=== PATIENT | female | born 1970 | race Caucasian/White ===

== ENCOUNTER 2021-09-04 17:20 | Emergency (ER) | payer OTHER, SELFPAY ==
[2021-09-04 17:35] VITALS: BP 181/108; PULSE 108; RESP 20; TEMP 37.2; O2SAT 99; BMI 45.5
--- NOTE | 2021-09-04 18:28 | ED.ANIMALBIT ---
HPI - Animal Bite General Time Seen by Provider: 17:20 Date Seen: 09/04/21 Chief Complaint: Animal Bite Stated Complaint: Bit by cat on both legs Time Seen by Provider: 09/04/21 17:25 Source: patient Mode of arrival: ambulatory Limitations: no limitations History of Present Illness HPI narrative: 51-year-old female who comes in today with multiple scratches abrasions of the legs bilaterally after main bed by CT. 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 complaint: animal bite Animal: cat Description of animal: unknown animal Mechanism: bite and scratch Location - Extremities: Bilateral: lower leg Context: unprovoked Related Data Home Medications Medication Instructions Recorded Confirmed furosemide 20 mg tablet mg 09/04/21 glimepiride 2 mg tablet mg 09/04/21 glimepiride 4 mg tablet mg 09/04/21 insulin glargine-yfgn 100 unit/mL unit SUBCUT 09/04/21 (3 mL) subcutaneous pen (Semglee (insulin glargine-yfgn) Pen) omeprazole 20 mg capsule,delayed mg 09/04/21 release semaglutide 0.25 mg or 0.5 mg (2 mg SUBCUT 09/04/21 mg/1.5 mL) subcutaneous pen injector (Ozempic) triamterene 37.5 tab 09/04/21 mg-hydrochlorothiazide 25 mg tablet Allergies Allergy/AdvReac Type Severity Reaction Status Date / Time clavulanic acid Allergy Verified 09/04/21 17:33 Review of Systems Status of ROS: Reports: 10 or more systems reviewed and unremarkable except as noted in History and below Exam Const: Vital Signs, click to edit/add: Vital Signs - 24 hr 09/04/21 17:35 Temperature 98.9 F Pulse Rate [Right Apical] 108 H Respiratory Rate 20 Blood Pressure [Ri ght Upper Arm] 181/108 H Pulse Oximetry 99 Course Reevaluation(s) Reevaluation #1: 6 mL of rabies immune globulin infiltrated around bites on the bilateral lower extremities. Remaining was injected IM by nursing. Last tetanus was in 2006. Time: 18:31 Vital Signs Vital signs: Initial Vital Signs Temperature 98.9 F 09/04/21 17:35 Temperature Source Temporal Artery Scan 09/04/21 17:35 Pulse Rate 108 H 09/04/21 17:35 Pulse Strength 2+ Slightly Diminished 09/04/21 17:35 Respiratory Rate 20 09/04/21 17:35 Blood Pressure 181/108 H 09/04/21 17:35 Blood Pressure Mean 132 09/04/21 17:35 Blood Pressure Position Standing 09/04/21 17:35 Pulse Oximetry 99 09/04/21 17:35 Oxygen Delivery Method 09/04/21 17:35 Vital Signs Temperature 98.9 F 09/04/21 17:35 Pulse Rate 108 H 09/04/21 17:35 Respiratory Rate 20 09/04/21 17:35 Blood Pressure 181/108 H 09/04/21 17:35 Pulse Oximetry 99 09/04/21 17:35 Temperature 98.9 F 09/04/21 17:35 Pulse Rate 108 H 09/04/21 17:35 Respiratory Rate 20 09/04/21 17:35 Blood Pressure 181/108 H 09/04/21 17:35 Pulse Oximetry 99 09/04/21 17:35 MDM - Animal Bite MDM Narrative Medical decision making narrative: Patient seen and examined, prior records reviewed. Multiple bites and scratches of the lower legs by CT with unknown vaccination status. Patient will be given rabies immune globulin and 1st dose of rabies vaccine series. She will need to follow up in the emergency department or the clinic for repeat doses. Patient is allergic to Augmentin, will be started on doxycycline for prophylaxis. Differential Diagnosis Differential diagnosis: Likely bite by animal, cat bite and rabies contact Discharge Plan Discharge Clinical Impression: Cat bite Patient Disposition: Home, Self-Care Condition: Stable Instructions: Animal Bite (ED), Rabies (ED) Additional Instructions: Wash daily with soap and water. Dressing as desired. Take antibiotics as prescribed. Return to emergency department for rabies vaccinations as scheduled below: Day 0 - September 04 Day 3 - September 07 Day - September 11 Day - September 18 Activity Level: No Restrictions Discharge Diet: Regular Prescriptions: No Action glimepiride 2 mg tablet 0RF Label Comments: TAKE TWO TABLETS BY MOUTH DAILY glimepiride 4 mg tablet 0RF Label Comments: TAKE ONE TABLET BY MOUTH DAILY triamterene-hydrochlorothiazid 37.5-25 mg tablet 0RF Label Comments: TAKE 1 TABLET BY MOUTH ONCE DAILY. omeprazole 20 mg capsule,delayed release(DR/EC) 0RF Label Comments: TAKE 1 CAPSULE BY MOUTH TWICE DAILY furosemide 20 mg tablet 0RF Label Comments: TAKE 2 TABLETS BY MOUTH DAILY Ozempic 0.25 mg or 0.5 mg(2 mg/1.5 mL) pen injector SUBCUT 0RF insulin glargine-yfgn [Semglee(insulin glarg-yfgn)Pen] 100 unit/mL (3 mL) insulin pen SUBCUT 0RF Label Comments: 15 UNITS SUBQ AT BEDTIME Follow Up/Referrals: Alen Snider MD [Primary Care Provider] - Stand [facility]one [facility] Inst[facility]
--- NOTE | 2021-09-04 18:42 | ED.NURSE ---
Last tetanus in 2006. Dr Tate notified. Will order TDAP vaccine.
[2021-09-04] MEDS: IBUPROFEN 400 MG TABLET 600 MG PO (18:55)
[2021-09-04] MEDS: RABIES IMMUNE GLOBULIN 150 UNIT/ML INJ 2400 UNIT INFILTRATI (18:57)
[2021-09-04] MEDS: TETANUS/DIPHTH/PERTUSSIS 0.5 ML SYRINGE IM (18:59)
--- NOTE | 2021-09-04 19:51 | ED.NURSE ---
pt instructed to Return to emergency department for remainder of vaccines on: Day 3 - September 3rd Day 7 - September 11 Day 14 - September 18
== END 2021-09-04 19:30 | disposition home or self-care (01) ==
PROVIDERS: Emergency Provider Family Medicine; PCP Family Medicine
DX: S81.852A Open bite, left lower leg, initial encounter (principal); S81.851A Open bite, right lower leg, initial encounter; W55.01XA Bitten by cat, initial encounter
CPT/HCPCS: 90377; 90471; 90675; 90715; 99282; 99283; 99284; A9270

== ENCOUNTER 2021-09-07 16:49 | Emergency (ER) | payer OTHER, SELFPAY ==
[2021-09-07 16:57] VITALS: BP 119/75; PULSE 97; RESP 20; TEMP 36.9; O2SAT 96; BMI 45.5
--- NOTE | 2021-09-07 17:28 | ED_ITS ---
HPI - Skin/Abscess/Foreign Bdy General Chief complaint: Skin/Abscess/Foreign Body Stated complaint: Rash on legs Time Seen by Provider: 09/07/21 16:57 History of Present Illness HPI narrative: This 51-year-old female comes in for re-evaluation from a cat bite and scratches that occurred 4 days ago. She was seen the next day and started on rabies prophylaxis. Also was prescribed doxycycline to treat the likelihood of infection. She has an allergy to clavalonic acid. She has been taking doxycycline but continues to have erythema, warmth, and pain in both lower extremities. She has not had any fevers. Related Data Home Medications Medication Instructions Recorded Confirmed furosemide 20 mg tablet mg 09/04/21 glimepiride 2 mg tablet mg 09/04/21 glimepiride 4 mg tablet mg 09/04/21 insulin glargine-yfgn 100 unit/mL unit subcut 09/04/21 (3 mL) subcutaneous pen (Semglee (insulin glargine-yfgn) Pen) omeprazole 20 mg capsule,delayed mg 09/04/21 release semaglutide 0.25 mg or 0.5 mg (2 mg subcut 09/04/21 mg/1.5 mL) subcutaneous pen injector (Ozempic) triamterene 37.5 tab 09/04/21 mg-hydrochlorothiazide 25 mg tablet Previous Rx's Medication Instructions Recorded azithromycin 250 mg tablet See Taper PO DAILY 6 days #6 tabs 09/07/21 (Zithromax Z-Jamil) cefuroxime axetil 500 mg tablet 500 mg PO BID 10 days #20 tabs 09/07/21 hydrocodone 5 mg-acetaminophen 325 1 tab PO Q4-6H PRN pain #7 tabs 09/07/21 mg tablet Allergies Allergy/AdvReac Type Severity Reaction Status Date / Time clavulanic acid Allergy Verified 09/07/21 16:57 Review of Systems Status of ROS: Reports: 10 or more systems reviewed and unremarkable except as noted in History and below Narrative: Constitutional: No fevers, no weight gain or loss. Eyes: No discharge. No vision changes. HENT: No congestion, no sore throat, no ear pain. Cardiovascular: No chest pain, no palpitations. Respiratory: No shortness of breath, no wheezes, no cough. Gastrointestinal: No abdominal pain, no vomiting, no diarrhea. Genitourinary: No dysuria, no hematuria. Musculoskeletal: Normal range of motion. Skin: Erythema surrounding bite and scratch wounds in both lower extremities. Neurological: No dizziness, weakness, sensory change, speech change. Endo/Heme/Allergies: No bruising or bleeding. No polydipsia. Pysch: no suicidality, no anxiety, no insomnia. All other systems reviewed and are negative. PFSH PFS Social History Smoking Status: Never smoker Do you use any of these nicotine containing products: None How often do you have a drink containing alcohol: never How often do you have six or more drinks on one occasion: Never AUDIT-C Alcohol total score: 0 Non-prescribed substance use: denies use service: No Exam Narrative: Exam Narrative: Constitutional: Well-developed, well-nourished, no acute distress. HEENT: Normocephalic, atraumatic. Neck: Normal range of motion. Nontender. Supple. Heart: Regular. No murmurs. Normal rate. Intact distal pulses. Lungs: Clear to auscultation. No chest discomfort. No wheezes, rhonchi, or rales. Abdomen: Normal bowel sounds. Nontender. No rebound tenderness. Genitalia: Deferred. Back: No midline tenderness. Normal range of motion. Extremities: Normal range of motion. No injury. Skin: Cat bite wounds on the medial aspect of the left lower extremity above the ankle with surrounding erythema. There is no palpable abscess or sign of drainage. In the right lower is also erythema with numerous scratches. Neurologic: No altered sensation. No weakness. Alert and oriented. Psychiatric: No suicidality. No anxiety or depression. No insomnia. Nursing notes and vitals signs are reviewed. Const: Vital Signs, click to edit/add: Vital Signs - 24 hr 09/07/21 16:57 Temperature 98.4 F Pulse Rate [Pulse Oximeter] 97 Respiratory Rate 20 Blood Pressure [Ri ght Forearm] 119/75 Pulse Oximetry 96 Oxygen Delivery Me thod Room Air Course Vital Signs Vital signs: Initial Vital Signs Temperature 98.4 F 09/07/21 16:57 Temperature Source Temporal Artery Scan 09/07/21 16:57 Pulse Rate 97 09/07/21 16:57 Pulse Rhythm 09/07/21 16:57 Respiratory Rate 20 09/07/21 16:57 Blood Pressure 119/75 09/07/21 16:57 Blood Pressure Mean 89 09/07/21 16:57 Pulse Oximetry 96 09/07/21 16:57 Oxygen Delivery Method 09/07/21 16:57 Vital Signs Temperature 98.4 F 09/07/21 16:57 Pulse Rate 97 09/07/21 16:57 Respiratory Rate 20 09/07/21 16:57 Blood Pressure 119/75 09/07/21 16:57 Pulse Oximetry 96 09/07/21 16:57 Oxygen Delivery Method 09/07/21 16:57 Temperature 98.4 F 09/07/21 16:57 Pulse Rate 97 09/07/21 16:57 Respiratory Rate 20 09/07/21 16:57 Blood Pressure 119/75 09/07/21 16:57 Pulse Oximetry 96 09/07/21 16:57 Oxygen Delivery Method 09/07/21 16:57 MDM - Skin/Abscess/Foreign Bdy MDM Narrative Medical decision making narrative: This 51-year-old female comes in for recheck of infection related to a cat bite and scratches that occurred 4 days ago. She does not have any red streaks going up either leg and does not have a fever. However despite taking doxycycline her symptoms have not improved much. The doxycycline was prescribed likelihood of a pastorella infection. This was a second-line treatment because of an allergy to clavalonic acid. She may have an additional infection related I did discuss lab and imaging options with the patient which were declined in a process of shared decision making at this time. It does seem reasonable to change her treatment plan. I consulted [facility] for treating these infections so she received or Ceftin and Zithromax. She also received a few tablets of [place] for pain relief. I describe signs and symptoms that would indicate a need for return and re-evaluation. She is returning in 3 days for another dose of her rabies regimen. Discharge Plan Discharge Clinical Impression: Cellulitis Patient Disposition: Home, Self-Care Condition: Stable Instructions: Cellulitis (ED) Additional Instructions: Hold doxycycline. Prescriptions as prescribed follow up with MD or return if worsening. Prescriptions: New cefuroxime axetil 500 mg tablet 500 mg PO BID 10 Days Qty: 20 0RF azithromycin [Zithromax Z-Jamil] 250 mg tablet See Taper PO DAILY 6 Days Qty: 6 0RF Taper: Z-JAMIL 500 mg Q24H for 1 Day and 0 Hour 250 mg Q24H for 4 Days and 0 Hour Rx Instructions: start on day 2 of therapy hydrocodone-acetaminophen 5-325 mg tablet 1 tab PO Q4-6H PRN (Reason: pain) Qty: 7 0RF No Action glimepiride 2 mg tablet Label Comments: TAKE TWO TABLETS BY MOUTH DAILY glimepiride 4 mg tablet Label Comments: TAKE ONE TABLET BY MOUTH DAILY triamterene-hydrochlorothiazid 37.5-25 mg tablet Label Comments: TAKE 1 TABLET BY MOUTH ONCE DAILY. omeprazole 20 mg capsule,delayed release(DR/EC) Label Comments: TAKE 1 CAPSULE BY MOUTH TWICE DAILY furosemide 20 mg tablet Label Comments: TAKE 2 TABLETS BY MOUTH DAILY Ozempic 0.25 mg or 0.5 mg(2 mg/1.5 mL) pen injector SUBCUT insulin glargine-yfgn [Semglee(insulin glarg-yfgn)Pen] 100 unit/mL (3 mL) insulin pen SUBCUT Label Comments: 15 UNITS SUBQ AT BEDTIME Follow Up/Referrals: Alen Snider MD [Primary Care Provider] - Stand Alone Forms: [facility] Info Instructions
== END 2021-09-07 17:57 | disposition home or self-care (01) ==
PROVIDERS: Emergency Provider Emergency Medicine Emergency Medical Services; PCP Family Medicine
DX: L03.90 Cellulitis, unspecified (principal); W55.03XA Scratched by cat, initial encounter
CPT/HCPCS: 99282; 99284

== ENCOUNTER 2021-09-19 22:23 | Outpatient (RCR) | payer OTHER, SELFPAY ==
[2021-09-10 00:43] VITALS: BP 129/71; PULSE 101; RESP 18; TEMP 36.2; O2SAT 98
== END 2022-08-22 16:34 | disposition home or self-care (01) ==
PROVIDERS: PCP Family Medicine; Visit Provider Family Medicine
DX: Z23 Encounter for immunization (principal)
CPT/HCPCS: 80307; 90471; 90675

== ENCOUNTER 2021-11-25 13:47 | Outpatient (CLI) | payer OTHER, SELFPAY ==
--- NOTE | 2021-11-25 14:40 | CRLHL7_ITS ---
For Patients: As a result of the Century Cures Act, medical imaging exams and procedure reports are released immediately into your electronic medical record. You may view this report before your referring provider. If you have questions, please contact your health care provider. BILATERAL SCREENING MAMMOGRAM WITH COMPUTER-AIDED DETECTION AND TOMOSYNTHESIS TECHNIQUE: CC and MLO views were obtained. These mammographic images have been obtained using full-field digital technique. These mammographic images were interpreted with the benefit of computer-aided detection. Breast Tomosynthesis was used in this interpretation. COMPARISON FILM: 11/15/20, 11/28/19, 11/25/18. FINDINGS: There are scattered areas of fibroglandular density IMPRESSION: There is no radiographic evidence for malignancy. ASSESSMENT: BI-RADS Category 1: Negative RECOMMENDATION: Routine screening mammogram in 1 year. A lay language report of this examination will be provided to the patient. Alen Welch M.D. Diagnostic Radiologist [email or web address] BRITTNI/Dictated by: Alen Welch MD @ 11/28/2021 8:43:00 AM (Electronically Signed)
== END 2021-11-25 13:48 | disposition home or self-care (01) ==
LOC: MAMMO 13:48
PROVIDERS: PCP Family Medicine; Visit Provider Family Medicine
DX: Z12.31 Encounter for screening mammogram for malignant neoplasm of breast (principal)
CPT/HCPCS: 77063; 77067

== ENCOUNTER 2021-12-02 09:10 | Outpatient (CLI) | payer OTHER, SELFPAY ==
--- OUTSIDE RECORDS SUMMARY | 2021-12-02 09:38 | XMS_ITS | Clinical Summary ---
:1970 Author Organization [employer] [facility] [place] [address] Care Team Providers Name Role Phone Pcp, No Primary Care Provider Unavailable Allergies Active Allergy Reactions Severity Noted Date Comments Amoxicillin-Pot Clavulanate Vomiting 12/16/2013 Morphine Rash 12/16/2013 Medications Not on file Active Problems Not on file Social History Tobacco Use Types Packs/Day Years Used Date Never Smoker Alcohol Use Standard Drinks/Week Comments Not Asked 0 (1 standard drink = 0.6 oz pure alcoho l) Sex Assigned at Date Recorded Not on file Obstetrics History Last Filed Vital Signs Vital Sign Reading Time Taken Comments Blood Pressure 117/83 12/31/2013 1:53 PM MANGANESE HEATER Pulse 92 12/31/2013 1:53 PM MANGANESE HEATER Temperature - - Respiratory Rate - - Oxygen Saturation - - Inhaled Oxygen Concentration - - Weight - - Height - - Body Mass Index - - Plan of Treatment Health Maintenance Due Date Last Done Comments COVID-19 vaccine series (#1) 1970 Tdap 1981 Depression screening for age 12+ 1982 BMI (ht and wt on same day) for age 18+ 1988 Hepatitis C screening for age 18-79 1988 Tetanus booster 1990 Pap test for age 21-65 06/10/1991 Colonoscopy through age 75 06/10/2015 Lipids for age 45-75 06/10/2015 Mammogram for age 45-75 08/15/2015 08/14/2014 Zoster (shingles) series for age 50+ (1 of 2) 2020 Influenza for age 50-64 10/06/2021 Results Not on filefrom Last 3 Months Care Teams Prosecuting Attorney Relationship Specialty Start Date End Date Pcp, No PCP - General 12/15/13 .
--- OUTSIDE RECORDS SUMMARY | 2021-12-02 09:38 | XMS_ITS | Clinical Summary ---
:1970 Author Organization [place] Address [facility] [place] [address] Care Team Providers Name Role Phone Silvestre Rider MD Primary Care Provider Un available Allergies Active Allergy Reactions Severity Noted Date Comments Clavulanic Acid 05/02/2017 Morphine 05/02/2017 Medications Medication Sig Dispensed Refills Start Date End Date Status OMEPRAZOLE PO 0 Active RaNITidine HCl (ZANTAC PO) 0 Active Immunizations Name Administration Dates Next Due Influenza Vaccine IM > 6 months Valent IIV4 11/22/2016, 0 04/2015 (Alfuria,Fluzone) Family History Medical History Relation Comments Diabetes Brother Diabetes Father Gallbladder Disease Father Hypertension Father Thyroid Disease Father Diabetes Maternal Grandfather Hypertension Maternal Grandfather Diabetes Maternal Grandmother Gallbladder Disease Maternal Grandmother Hypertension Maternal Grandmother Diabetes Mother Gallbladder Disease Mother Hypertension Mother Hypertension Paternal Grandfather Cerebrovascular Disease Paternal Grandmother Diabetes Paternal Grandmother Hypertension Paternal Grandmother Gallbladder Disease Sister Relation Status Comments Brother Father Maternal Grandfather Maternal Grandmother Mother Paternal Grandfather Paternal Grandmother Sister Social History Tobacco Use Types Packs/Day Years Used Date Smoking Tobacco: Never Smokeless Tobacco: Never Sex Assigned at Date Recorded Not on file Last Filed Vital Signs Vital Sign Reading Time Taken Comments Blood Pressure 155/89 05/02/2017 1:01 PM CDT Pulse 89 05/02/2017 1:01 PM CDT Temperature - - Respiratory Rate - - Oxygen Saturation - - Inhaled Oxygen Concentration - - Weight 111.1 kg (245 lb) 05/02/2017 1:01 PM CDT pt repo rted Height 162.6 cm (5' 4) 05/02/2017 1:01 PM CDT pt repor lesa Body Mass Index 42.05 05/02/2017 1:01 PM CDT Plan of Treatment Not on file Insurance Payer Benefit Plan / Subscriber ID Effective Phone Address T ype Group Dates PREFERREDONE PREFERREDONE HMO [id number] 2016-[employer] [phone] [address] [address] [address]PO [address] [place] [address] Care Teams Fur Drummer Relationship Specialty Start Date End Date Silvestre Rider, PCP - General Internal Medicine
--- OUTSIDE RECORDS SUMMARY | 2021-12-02 09:38 | XMS_ITS | Encounter Summary ---
:1970 Author Organization [place] Address [facility] [place] [address] Care Team Providers Name Role Phone Silvestre Rider MD Primary Care Provider Un available Reason for Visit Reason Comments No Show Encounter Details Date Type Department Care Team Description 05/15/2017 Office Visit [facility] Silvestre Rider NO SHOW (Primary Dx) Clinic Cally Zimmerman, [address] [facility], [address] [place] [address] AVAILABLE [phone] 11/23/2021 Social History Tobacco Use Types Packs/Day Years Used Date Smoking Tobacco: Never Smokeless Tobacco: Never Sex Assigned at Date Recorded Not on file documented as of this encounter Progress Notes Bonnie Lang MA - 05/15/2017 1:30 PM CDT No show documented in this encounter Plan of Treatment Not on filedocumented as of this encounter Visit Diagnoses Diagnosis NO SHOW - Primary documented in this encounter Care Teams Swine Genetics Researcher Relationship Specialty Start Date End Date Silvestre Rider, PCP - General Internal Medicine documented as of this encounter
--- OUTSIDE RECORDS SUMMARY | 2021-12-02 09:38 | XMS_ITS | Encounter Summary ---
:1970 Author Organization [place] Address [address] [facility] [place] [address] Care Team Providers Name Role Phone Kenji Demetria Van Primary Care Provider Reason for Visit Reason Comments Consult hiatal hernia Encounter Details Date Type Department Care Team Description 05/02/2017 Office Visit [facility] ChasityQuinten, Hiatal hernia (Primary Dx); [facility] [place] [facility] Gastroesophageal reflux disease, esophag itis presence not specified; [address] Morb id obesity due to excess calories (H) [address] [place] [address] [place] [id number] Social History Tobacco Use Types Packs/Day Years Used Date Smoking Tobacco: Never Smokeless Tobacco: Never Sex Assigned at Date Recorded Not on file documented as of this encounter Last Filed Vital Signs Vital Sign Reading [...] Mass Index 42.05 05/02/2017 1:01 PM CDT documented in this encounter Patient Instructions Patient InstructionsBrittany Clements - 05/02/2017 1:00 PM CDT You are scheduled for Upper GI with double contrast at [facility] Clinic on 05/03/17 at 8:15am. Check in at 8am. Nothing to eat or drink after midnight. You are scheduled with Dr. Silvestre Rider at [facility] on 05/15/17 at 1:30pm. [address] documented in this encounter Progress Notes Quinten Gaspar MD - 05/02/2017 1:00 PM CDT [facility] Consultation CHIEF COMPLAINT: Chief Complaint Patient presents with ??? Consult hiatal hernia HISTORY OF PRESENT ILLNESS: Cordell Mota is a 46 year old female who is seen in consultation atthe request of Dr. Phillip for evaluation of long-term reflux poorly controlled with medications and hiatal hernia. Mrs. Mota started to experience reflux disease during her last 27 years ago. Since then the symptoms have slowly worsened. She now takes multiple medication regimen and is still barely controls her heartburn. She has difficulty swallowing breads, meats, hard-boiled eggs and the like. At times she may have pain with swallowing when something seems to be getting stuck. She hashad CT scans of her abdomen done, most recently 2012, also upper endoscopy in 2016 show the presenceof hiatal hernia. She has been exercising and watching her diet in an attempt to lose weight but hasnot been very successful. REVIEW OF SYSTEMS: Constitutional: Negative for chills, fatigue, fever and steady weight increase over many years. Eyes: Negative for new vision problems. ENT: At times hoarseness related to reflux, sour taste in the back of her throat. Cardiovascular: See HPI, no cardiac origin pain Respiratory: Negative for cough, dyspnea. Gastrointestinal: See HPI, normal bowel movements. Musculoskeletal: Negative for new arthralgias or myalgias. Integumentary: No new rashes nor lesions. Her past medical history includes kidney stones and prediabetes Past Surgical History: Procedure Laterality Date ??? ABDOMEN SURGERY ??? APPENDECTOMY ??? HERNIA REPAIR Family History has been reviewed. Social History Substance Use Topics ??? Smoking status: Never Smoker ??? Smokeless tobacco: Never Used ??? Alcohol use Not on file Allergies Allergen Reactions ??? Clavulanic Acid ??? Morphine Current Outpatient Prescriptions Medication Sig Dispense Refill ??? OMEPRAZOLE PO ??? RaNITidine HCl (ZANTAC PO) Vitals: BP 155/89 Pulse 89 Ht 5' 4 (1.626 m) Wt 245 lb (111.1 kg) BMI 42.05 kg/m2 BMI= Body mass index is 42.05 kg/(m^2). EXAM: GENERAL: Obese, alert and no distress HEENT: moist mucus membranes, no scleral icterus CARDIOVASCULAR: RRR, No JVD RESPIRATORY: non labored breathing NECK: Neck supple. No noticeable masses. ABDOMEN: soft, nontender Extremities: warm and well perfused, no edema SKIN: No suspicious lesions or rashes LABS/Imaging: CT scan images and endoscopy reports were reviewed ASSESSMENT: Cordell Mota suffers from 1. Morbid obesity 2. Hiatal hernia 3. Refractory to medication gastroesophageal reflux disease. PLAN: We will obtain a double contrast esophagogram Referred to medical weight loss management, stable referral to weight loss dietitian. We discussed that after a 50 pound weight loss we could look at antireflux type procedures as a viable option for her. We also talked about the benefits of some weight loss operations not only for weight loss but also for acid reflux treatment. It is my pleasure to participate in the care of Cordell Mota. Thank you for this consultation. If you have any questions please give me a call. Best regards, Quinten Gaspar MD Please route or send letter to: Primary Care Provider (PCP), Referring Provider and Include Progress Note Total time with patient visit: 45 minutes more than half spent in counseling, explanation of procedures and coordination of care. documented in this encounter Plan of Treatment Not on filedocumented as of this encounter Visit Diagnoses Diagnosis Hiatal hernia - Primary Diaphragmatic hernia without mention of obstruction or gangrene Gastroesophageal reflux disease, esophag itis presence not specified Morbid obesity due to excess calories (H ) documented in this encounter Care Teams Merchandising Consultant Relationship Specialty Start Date End Date Demetria Phillip PCP - General 04/27/17 05/10/[address] [id number] documented as of this encounter
[2021-12-02 12:06] LABS: Chloride* 96 mmol/L (96-114); Potassium* 4.2 mmol/L (3.6-5.1); Sodium* 137 mmol/L (135-149)
[2021-12-02 12:08] LABS: Cholesterol* 178 mg/dL (90-199); Creatinine* 0.6 mg/dL (0.5-1.5); Estimated Glomerular Filt Rate 109 ml/min
[2021-12-02 12:09] LABS: Carbon Dioxide* 33 mmol/L (20-32)
[2021-12-02 12:10] LABS: Blood Urea Nitrogen* 21 mg/dL (7-30); Calcium* 9.5 mg/dL (8.4-10.6); Glucose* 219 mg/dL (60-115); HDL Cholesterol* 43 mg/dL (>=50); LDL Cholesterol Calculated 101 mg/dL (<100); Triglycerides* 168 mg/dL (40-149)
[2021-12-02 12:12] LABS: C Reactive Protein* 2.3 mg/dL (0.5-1.0)
== END 2021-12-02 09:11 | disposition home or self-care (01) ==
PROVIDERS: PCP Family Medicine; Visit Provider Family Medicine
DX: E11.9 Type 2 diabetes mellitus without complications (principal); I10 Essential (primary) hypertension; Z13.6 Encounter for screening for cardiovascular disorders
CPT/HCPCS: 80048; 80061; 86140

== ENCOUNTER 2021-12-02 11:56 | Outpatient (REF) | payer OTHER, SELFPAY ==
--- OUTSIDE RECORDS SUMMARY | 2021-12-02 12:01 | XMS_ITS | Clinical Summary ---
:1970 Author Organization [employer] [facility] [place] [address] Care Team Providers Name Role Phone Pcp, [...] Comments Blood Pressure 117/83 12/31/2013 1:53 PM HRIS COORDINATOR Pulse 92 12/31/2013 1:53 PM HRIS COORDINATOR Temperature - - Respiratory Rate - - [...] on filefrom Last 3 Months Care Teams Fundraising Manager Relationship Specialty Start Date End Date Pcp, No PCP - General 12/15/13 .
--- OUTSIDE RECORDS SUMMARY | 2021-12-02 12:01 | XMS_ITS | Encounter Summary ---
:1970 Author Organization [place] Address [address] [facility] [place] [address] Care Team Providers Name Role Phone Kenji Demetria Van Primary Care Provider Reason for Visit Reason Comments Consult hiatal hernia Encounter Details Date Type Department Care Team Description 05/02/2017 Office Visit [facility] ChasityQuinten, Hiatal hernia (Primary Dx); [facility] [place] [facility] Gastroesophageal reflux disease, esophag itis presence not specified; [address] Morb id obesity due to excess calories (H) [address] [place] [address] [place] [id number] Social History Tobacco Use Types Packs/Day Years [...] for Upper GI with double contrast at [facility] on 05/03/17 at 8:15am. Check in at 8am. Nothing to eat or drink after midnight. You are scheduled with Dr. Silvestre Rider at [facility] on 05/15/17 at 1:30pm. [address] documented in this encounter Progress Notes Quinten Gaspar MD - 05/02/2017 1:00 PM CDT [facility] Consultation CHIEF COMPLAINT: Chief Complaint [...] ) documented in this encounter Care Teams Molecular Geneticist Relationship Specialty Start Date End Date Demetria Phillip PCP - General 04/27/17 05/10/[address] [id number] documented as of this encounter
--- OUTSIDE RECORDS SUMMARY | 2021-12-02 12:01 | XMS_ITS | Clinical Summary ---
:1970 Author Organization [place] Address [facility] [place] [address] Care Team Providers Name Role Phone Silvestre [...] T ype Group Dates PREFERREDONE PREFERREDONE HMO [id number] 2016-[employer] [phone] [address] [address] [address]PO [address] [place] [address] Care Teams Superintendent Renting Managing Relationship Specialty Start Date End Date Silvestre Rider, PCP - General Internal Medicine
--- OUTSIDE RECORDS SUMMARY | 2021-12-02 12:01 | XMS_ITS | Encounter Summary ---
:1970 Author Organization [place] Address [facility] [place] [address] Care Team Providers Name Role Phone Silvestre Rider MD Primary Care Provider Un available Reason for Visit Reason Comments No Show Encounter Details Date Type Department Care Team Description 05/15/[address] [facility] Silvestre Rider NO SHOW (Primary Dx) Clinic Cally Zimmerman, [address] [facility], [address] [place] [address] AVAILABLE [phone] 11/23/2021 Social History Tobacco Use Types Packs/Day Years Used Date Smoking Tobacco: Never Smokeless Tobacco: Never Sex Assigned at Date Recorded Not on file documented as of this encounter Progress Notes Bonnie Lagn MA - 05/15/2017 1:30 PM CDT No show documented in this encounter Plan of Treatment Not on filedocumented as of this encounter Visit Diagnoses Diagnosis NO SHOW - Primary documented in this encounter Care Teams C Developer Relationship Specialty Start Date End Date Silvestre Rider, PCP - General Internal Medicine documented as of this encounter
[2021-12-02 12:55] LABS: Alanine Aminotransferase* 31 U/L (4-35); Alkaline Phosphatase* 152 U/L (40-150); Aspartate Amino Transferase* 23 U/L (12-35); Bilirubin Direct* 0.2 mg/dL (0.0-0.5); Bilirubin Total* 0.5 mg/dL (0.1-1.5); Total Protein* 6.7 g/dL (6.0-8.3)
== END 2021-12-02 11:57 | disposition home or self-care (01) ==
LOC: NPINS 11:56
PROVIDERS: Physician Assistant; PCP Family Medicine
DX: K50.111 Crohn's disease of large intestine with rectal bleeding (principal)
CPT/HCPCS: 80076

== ENCOUNTER 2021-12-14 08:27 | Outpatient (CLI) | payer OTHER, SELFPAY ==
--- OUTSIDE RECORDS SUMMARY | 2021-12-14 08:29 | XMS_ITS | Clinical Summary ---
:1970 Author Organization [place] Address [facility] [place] [address] Care Team Providers Name Role Phone Silvestre [...] T ype Group Dates PREFERREDONE PREFERREDONE HMO [id number] 2016-[employer] [phone] [address] [address] [address]PO nt [address] [place] [address] Care Teams Clinical Material Handler Relationship Specialty Start Date End Date Silvestre Rider, PCP - General Internal Medicine
--- OUTSIDE RECORDS SUMMARY | 2021-12-14 08:29 | XMS_ITS | Encounter Summary ---
:1970 Author Organization [place] Address [facility] [place] [address] Care Team Providers Name Role Phone Silvestre Rider MD Primary Care Provider Un available Reason for Visit Reason Comments No Show Encounter Details Date Type Department Care Team Description 05/15/2017 Office Visit [facility] Silvestre Rider NO SHOW (Primary Dx) Clinic Cally Zimmerman, [address] [facility], [address] [place] [address] AVAILABLE [phone] 11/23/2021 Social History Tobacco Use Types Packs/Day [...] Primary documented in this encounter Care Teams Metrology Engineer Relationship Specialty Start Date End Date Silvestre Rider, PCP - General Internal Medicine documented as of this encounter
--- OUTSIDE RECORDS SUMMARY | 2021-12-14 08:29 | XMS_ITS | Clinical Summary ---
:1970 Author Organization [employer] [facility] [place] [address] Care Team Providers Name Role Phone Pcp, [...] Comments Blood Pressure 117/83 12/31/2013 1:53 PM REAL ESTATE LEGAL SECRETARY Pulse 92 12/31/2013 1:53 PM REAL ESTATE LEGAL SECRETARY Temperature - - Respiratory Rate - - [...] on filefrom Last 3 Months Care Teams Corporate Aircraft Mechanic Relationship Specialty Start Date End Date Pcp, No PCP - General 12/15/13 .
--- OUTSIDE RECORDS SUMMARY | 2021-12-14 08:29 | XMS_ITS | Encounter Summary ---
:1970 Author Organization [place] Address [address] [facility] [place] [address] Care Team Providers Name Role Phone Kenji Demetria Van Primary Care Provider Reason for Visit Reason Comments Consult hiatal hernia Encounter Details Date Type Department Care Team Description 05/02/2017 Office Visit [facility] ChasityQuinten, Hiatal hernia (Primary Dx); [facility] [place] LIGHT Gastroesophageal reflux disease, esophag itis presence not specified; [address] Morb id obesity due to excess calories (H) [address] [place] [address] [place] [address] Social History Tobacco Use Types Packs/Day Years [...] for Upper GI with double contrast at [facility] on 05/03/17 at 8:15am. Check in at 8am. Nothing to eat or drink after midnight. You are scheduled with Dr. Silvestre Rider at [facility] on 05/15/17 at 1:30pm. [id number] documented in this encounter Progress Notes Quinten Gaspar MD - 05/02/2017 1:00 PM CDT [facility] Clinic Consultation CHIEF COMPLAINT: Chief Complaint [...] ) documented in this encounter Care Teams Electronic News Gathering Camera Person Relationship Specialty Start Date End Date Demetria Phillip PCP - General 04/27/17 05/10/[address] [address] documented as of this encounter
== END 2021-12-14 08:28 | disposition home or self-care (01) ==
LOC: WOUND 08:27
PROVIDERS: PCP Family Medicine; Visit Provider Surgery
DX: S81.852A Open bite, left lower leg, initial encounter (principal); W55.01XA Bitten by cat, initial encounter; E08.9 Diabetes mellitus due to underlying condition without complications; L97.222 Non-pressure chronic ulcer of left calf with fat layer exposed; I89.0 Lymphedema, not elsewhere classified
CPT/HCPCS: 99213

== ENCOUNTER 2021-12-21 08:23 | Outpatient (CLI) | payer OTHER, SELFPAY ==
--- OUTSIDE RECORDS SUMMARY | 2021-12-21 08:24 | XMS_ITS | Clinical Summary ---
:1970 Author Organization [place] Address [facility] [place] [address] Care Team Providers Name Role Phone Silvestre Rider MD Primary Care Provider Un available Allergies Active Allergy Reactions Severity Noted Date Comments Clavulanic Acid 05/02/2017 Morphine 05/02/2017 Medications Medication Sig Dispensed Refills Start Date End Date Status OMEPRAZOLE PO 0 Active RaNITidine HCl (ZANTAC PO) 0 Active Immunizations Name Administration Dates Next Due Influenza Vaccine IM > 6 months Valent IIV4 11/22/2016, 04/2015 (Alfuria,Fluzone) Family History Medical History Relation [...] T ype Group Dates PREFERREDONE PREFERREDONE HMO [id number] 2016-[employer] [phone] [address] [phone] [address]PO [address] [place] [address] Care Teams Instructor Private Relationship Specialty Start Date End Date Silvestre Rider, PCP - General Internal Medicine
--- OUTSIDE RECORDS SUMMARY | 2021-12-21 08:24 | XMS_ITS | Encounter Summary ---
:1970 Author Organization [place] Address [facility] [place] [address] Care Team Providers Name Role Phone Silvestre Rider MD Primary Care Provider Un available Reason for Visit Reason Comments No Show Encounter Details Date Type Department Care Team Description 05/15/2017 Office Visit [facility] Silvestre Rider NO SHOW (Primary Dx) Clinic Cally Zimmerman, [address] [facility], [address] [place] [address] AVAILABLE [phone] 11/23/2021 Social History Tobacco Use Types Packs/Day [...] Primary documented in this encounter Care Teams Manager Medicare Marketing Relationship Specialty Start Date End Date Silvestre Rider, PCP - General Internal Medicine documented as of this encounter
--- OUTSIDE RECORDS SUMMARY | 2021-12-21 08:24 | XMS_ITS | Clinical Summary ---
:1970 Author Organization [employer] [facility] [place] [address] Care Team Providers Name Role Phone Pcp, [...] Comments Blood Pressure 117/83 12/31/2013 1:53 PM NETWORK ACCOUNT MANAGER Pulse 92 12/31/2013 1:53 PM NETWORK ACCOUNT MANAGER Temperature - - Respiratory Rate - - [...] on filefrom Last 3 Months Care Teams Italian Lecturer Relationship Specialty Start Date End Date Pcp, No PCP - General 12/15/13 .
--- OUTSIDE RECORDS SUMMARY | 2021-12-21 08:25 | XMS_ITS | Encounter Summary ---
:1970 Author Organization [place] Address [address] [facility] [place] [address] Care Team Providers Name Role Phone Kenji Demetria Van Primary Care Provider Reason for Visit Reason Comments Consult hiatal hernia Encounter Details Date Type Department Care Team Description 05/02/2017 Office Visit [facility] ChasityQuinten, Hiatal hernia (Primary Dx); Surgery Clinic [place] LIGHT Gastroesophageal reflux disease, esophag itis presence not specified; [address] Morb id obesity due to excess calories (H) [address] [place] [address] [place] [id number] Social History Tobacco Use Types Packs/Day Years [...] for Upper GI with double contrast at [facility] on 05/03/17 at 8:15am. Check in at 8am. Nothing to eat or drink after midnight. You are scheduled with Dr. Silvestre Rider at [facility] on 05/15/17 at 1:30pm. [id number] documented in this encounter Progress Notes Quinten Gaspar MD - 05/02/2017 1:00 PM CDT [facility] Surgery Clinic Consultation CHIEF COMPLAINT: Chief [...] ) documented in this encounter Care Teams Podiatric Foot And Ankle Specialist Relationship Specialty Start Date End Date Demetria Phillip PCP - General 04/27/17 05/10/[address] [address] documented as of this encounter
== END 2021-12-21 08:24 | disposition home or self-care (01) ==
LOC: WOUND 08:23
PROVIDERS: PCP Family Medicine; Visit Provider Surgery
DX: L97.222 Non-pressure chronic ulcer of left calf with fat layer exposed (principal); E08.9 Diabetes mellitus due to underlying condition without complications; I89.0 Lymphedema, not elsewhere classified
CPT/HCPCS: 97597

== ENCOUNTER 2021-12-28 07:56 | Outpatient (CLI) | payer OTHER, SELFPAY ==
--- OUTSIDE RECORDS SUMMARY | 2021-12-28 07:57 | XMS_ITS | Encounter Summary ---
:1970 Author Organization [place] Address [facility] [place] [address] Care Team Providers Name Role Phone Silvestre Rider MD Primary Care Provider Un available Reason for Visit Reason Comments No Show Encounter Details Date Type Department Care Team Description 05/15/2017 Office Visit [facility] Silvestre Rider NO SHOW (Primary Dx) Clinic Cally [place]erman, [address] [facility], [address] [place] [address] AVAILABLE [phone] 11/23/2021 Social History Tobacco Use Types Packs/Day [...] Primary documented in this encounter Care Teams Quality Director Relationship Specialty Start Date End Date Silvestre Rider, PCP - General Internal Medicine documented as of this encounter
--- OUTSIDE RECORDS SUMMARY | 2021-12-28 07:57 | XMS_ITS | Clinical Summary ---
:1970 Author Organization [employer] [facility] [place] [address] Care Team Providers Name Role Phone Pcp, [...] Comments Blood Pressure 117/83 12/31/2013 1:53 PM DRIFTMAN Pulse 92 12/31/2013 1:53 PM DRIFTMAN Temperature - - Respiratory Rate - - Oxygen Saturation - - Inhaled Oxygen Concentration - - Weight - - Height - - Body Mass Index - - Plan of Treatment Health Maintenance Due Date Last Done Comments COVID-19 vaccine series (#1) 1970 Tdap 1981 Depression screening for age 12+ 1982 HIV for age 15-65 1985 BMI (ht and wt on same day) [...] on filefrom Last 3 Months Care Teams Newspaper Publisher Relationship Specialty Start Date End Date Pcp, No PCP - General 12/15/13 .
--- OUTSIDE RECORDS SUMMARY | 2021-12-28 07:57 | XMS_ITS | Clinical Summary ---
:1970 Author Organization [place] Address [facility] [place] [address] Care Team Providers Name Role Phone Silvestre Rider MD Primary Care Provider Un available Allergies Active Allergy Reactions Severity Noted Date Comments Clavulanic Acid 05/02/2017 Morphine 05/02/2017 Medications Medication Sig Dispensed Refills Start Date End Date Status OMEPRAZOLE PO 0 Active RaNITidine HCl (ZANTAC PO) 0 Active Immunizations Name Administration Dates Next Due Influenza Vaccine >6 months (Alfuria,Fluzone) 11/22/2016, Family History Medical History Relation Comments Diabetes [...] T ype Group Dates PREFERREDONE PREFERREDONE HMO [id number] 2016-[employer] [phone] [address] [address] PPO nt [address] [place] [address] Care Teams Customer Service Engineer Relationship Specialty Start Date End Date Silvestre Rider, PCP - General Internal Medicine
--- OUTSIDE RECORDS SUMMARY | 2021-12-28 07:57 | XMS_ITS | Encounter Summary ---
:1970 Author Organization [place] Address [address] [facility] [place] [address] Care Team Providers Name Role Phone Kenji Demetria Van Primary Care Provider Reason for Visit Reason Comments Consult hiatal hernia Encounter Details Date Type Department Care Team Description 05/02/2017 Office Visit [facility] ChasityQuinten, Hiatal hernia (Primary Dx); Surgery Clinic [place] LIGHT Gastroesophageal reflux disease, esophag itis presence not specified; [address] Morb id obesity due to excess calories (H) [address] [place] [address] [place] [address] Social History Tobacco Use Types Packs/Day Years [...] for Upper GI with double contrast at [facility] on 05/03/17 at 8:15am. Check in at 8am. Nothing to eat or drink after midnight. You are scheduled with Dr. Silvestre Rider at [facility] on 05/15/17 at 1:30pm. [id number] documented in this encounter Progress Notes Quinten Gaspar MD - 05/02/2017 1:00 PM CDT [facility] Surgery Clinic Consultation CHIEF COMPLAINT: Chief Complaint [...] ) documented in this encounter Care Teams Bung Driver Relationship Specialty Start Date End Date Demetria Phillip PCP - General 04/27/17 05/10/[address] [address] documented as of this encounter
== END 2021-12-28 07:57 | disposition home or self-care (01) ==
LOC: WOUND 07:56
PROVIDERS: PCP Family Medicine; Visit Provider Surgery
DX: L97.222 Non-pressure chronic ulcer of left calf with fat layer exposed (principal); E08.9 Diabetes mellitus due to underlying condition without complications; I89.0 Lymphedema, not elsewhere classified; Z79.4 Long term (current) use of insulin; Z79.84 Long term (current) use of oral hypoglycemic drugs
CPT/HCPCS: 99213

== ENCOUNTER 2022-01-04 07:59 | Outpatient (CLI) | payer OTHER, SELFPAY ==
--- OUTSIDE RECORDS SUMMARY | 2022-01-04 08:01 | XMS_ITS | Encounter Summary ---
:1970 Author Organization [place] Address [address] [facility] [place] [address] Care Team Providers Name Role Phone Kenji Demetria Van Primary Care Provider Reason for Visit Reason Comments Consult hiatal hernia Encounter Details Date Type Department Care Team Description 05/02/[address] [facility] ChasityQuinten, Hiatal hernia (Primary Dx); Surgery [facility] [place] LIGHT Gastroesophageal reflux disease, esophag itis presence not specified; [address] Morb id obesity due to excess calories (H) [address] [place] [address] [place] [address] Social History Tobacco Use Types Packs/Day Years [...] for Upper GI with double contrast at [facility] on 05/03/17 at 8:15am. Check in at 8am. Nothing to eat or drink after midnight. You are scheduled with Dr. Silvestre Rider at [facility] on 05/15/17 at 1:30pm. [id number] documented in this encounter Progress Notes Quinten Gaspar MD - 05/02/2017 1:00 PM CDT [facility] Surgery Clinic Consultation CHIEF COMPLAINT: Chief [...] ) documented in this encounter Care Teams Director Prospect Relationship Specialty Start Date End Date Demetria Phillip PCP - General 04/27/17 05/10/[address] [phone] documented as of this encounter
--- OUTSIDE RECORDS SUMMARY | 2022-01-04 08:01 | XMS_ITS | Encounter Summary ---
:1970 Author Organization [place] Address [facility] [place] [address] Care Team Providers Name Role Phone Silvestre Rider MD Primary Care Provider Un available Reason for Visit Reason Comments No Show Encounter Details Date Type Department Care Team Description 05/15/2017 Office Visit [facility] Silvestre Rider NO SHOW (Primary Dx) Clinic Cally [place], [address] [facility], [address] [place] [address] AVAILABLE [phone] 11/23/2021 Social History Tobacco Use Types Packs/Day [...] Primary documented in this encounter Care Teams Inspector Filter Tip Relationship Specialty Start Date End Date Silvestre Rider, PCP - General Internal Medicine documented as of this encounter
--- OUTSIDE RECORDS SUMMARY | 2022-01-04 08:01 | XMS_ITS | Clinical Summary ---
:1970 Author Organization [place] Address [facility] [place] [address] Care Team Providers Name Role Phone Silvestre [...] T ype Group Dates PREFERREDONE PREFERREDONE HMO [id number] 2016-[employer] [phone] [address] [address] [address]PO nt [address] [place] [address] Care Teams Business Objects Architect Relationship Specialty Start Date End Date Silvestre Rider, PCP - General Internal Medicine
--- OUTSIDE RECORDS SUMMARY | 2022-01-04 08:01 | XMS_ITS | Clinical Summary ---
:1970 Author Organization [employer] [facility] [place] [address] Care Team Providers Name Role Phone Pcp, [...] Comments Blood Pressure 117/83 12/31/2013 1:53 PM BUSINESS TECHNOLOGY TEACHER Pulse 92 12/31/2013 1:53 PM BUSINESS TECHNOLOGY TEACHER Temperature - - Respiratory Rate - - [...] on filefrom Last 3 Months Care Teams Scale Tank Operator Relationship Specialty Start Date End Date Pcp, No PCP - General 12/15/13 .
== END 2022-01-04 08:00 | disposition home or self-care (01) ==
LOC: WOUND 07:59
PROVIDERS: PCP Family Medicine; Visit Provider Surgery
DX: L97.222 Non-pressure chronic ulcer of left calf with fat layer exposed (principal); E08.9 Diabetes mellitus due to underlying condition without complications; I89.0 Lymphedema, not elsewhere classified; Z79.4 Long term (current) use of insulin
CPT/HCPCS: 99213

== ENCOUNTER 2022-01-11 07:58 | Outpatient (CLI) | payer OTHER, SELFPAY ==
--- OUTSIDE RECORDS SUMMARY | 2022-01-11 08:03 | XMS_ITS | Encounter Summary ---
:1970 Author Organization [place] Address [facility] [place] [address] Care Team Providers Name Role Phone Silvestre Rider MD Primary Care Provider Un available Reason for Visit Reason Comments No Show Encounter Details Date Type Department Care Team Description 05/15/[address] [facility] Silvestre Rider NO SHOW (Primary Dx) Clinic Cally [place], [address] [facility], [address] [place] [address] AVAILABLE [phone] 11/23/2021 Social History Tobacco Use Types Packs/Day [...] Primary documented in this encounter Care Teams Nursing Professor Relationship Specialty Start Date End Date Silvestre Rider, PCP - General Internal Medicine documented as of this encounter
--- OUTSIDE RECORDS SUMMARY | 2022-01-11 08:03 | XMS_ITS | Encounter Summary ---
:1970 Author Organization [place] Address [address] [facility] [place] [address] Care Team Providers Name Role Phone Kenji Demetria Van Primary Care Provider Reason for Visit Reason Comments Consult hiatal hernia Encounter Details Date Type Department Care Team Description 05/02/2017 Office Visit [facility] ChasityQuinten, Hiatal hernia (Primary Dx); Surgery Clinic [place] LIGHT Gastroesophageal reflux disease, esophag itis presence not specified; [address] Morb id obesity due to excess calories (H) [address] [place] [address] [place] [address] Social History Tobacco Use Types Packs/Day Years [...] for Upper GI with double contrast at [facility] on 05/03/17 at 8:15am. Check in at 8am. Nothing to eat or drink after midnight. You are scheduled with Dr. Silvestre Rider at [facility] on 05/15/17 at 1:30pm. [id number] documented in this encounter Progress Notes Quinten Gaspar MD - 05/02/2017 1:00 PM CDT [facility] Consultation CHIEF COMPLAINT: Chief Complaint [...] ) documented in this encounter Care Teams Control Clerk Auditing Relationship Specialty Start Date End Date Demetria Phillip PCP - General 04/27/17 05/10/[address] [phone] documented as of this encounter
--- OUTSIDE RECORDS SUMMARY | 2022-01-11 08:03 | XMS_ITS | Clinical Summary ---
:1970 Author Organization [employer] [facility] [place] [address] Care Team Providers Name Role Phone Pcp, [...] Comments Blood Pressure 117/83 12/31/2013 1:53 PM JUMBO OPERATOR Pulse 92 12/31/2013 1:53 PM JUMBO OPERATOR Temperature - - Respiratory Rate - - [...] on filefrom Last 3 Months Care Teams Hospice Clinical Supervisor Relationship Specialty Start Date End Date Pcp, No PCP - General 12/15/13 .
--- OUTSIDE RECORDS SUMMARY | 2022-01-11 08:03 | XMS_ITS | Clinical Summary ---
:1970 Author Organization [place] Address [facility] [place] [address] Care Team Providers Name Role Phone Silvestre [...] T ype Group Dates PREFERREDONE PREFERREDONE HMO [id number] 2016-[employer] [phone] [address] [address] [address]PO nt [address] [place] [address] Care Teams Criminal Researcher Relationship Specialty Start Date End Date Silvestre Rider, PCP - General Internal Medicine
== END 2022-01-11 07:59 | disposition home or self-care (01) ==
LOC: WOUND 08:01
PROVIDERS: PCP Family Medicine; Visit Provider Surgery
DX: L97.222 Non-pressure chronic ulcer of left calf with fat layer exposed (principal); E08.9 Diabetes mellitus due to underlying condition without complications; I89.0 Lymphedema, not elsewhere classified
CPT/HCPCS: 97597

== ENCOUNTER 2022-01-18 07:56 | Outpatient (CLI) | payer OTHER, SELFPAY ==
--- OUTSIDE RECORDS SUMMARY | 2022-01-18 08:01 | XMS_ITS | Clinical Summary ---
:1970 Author Organization [facility] [place] [address] Care Team Providers Name Role Phone Pcp, No Primary Care Provider Unavailable Allergies Active Allergy Reactions Severity Noted Date Comments Amoxicillin-Pot Clavulanate Vomiting 12/16/2013 Morphine Rash 12/16/2013 Medications Not on file Active Problems Not on file Social History Tobacco Use Types Packs/Day Years Used Date Smoking Tobacco: Never Alcohol Use Standard Drinks/Week Comments Not Asked 0 (1 standard drink = 0.6 oz pure alcoho l) Sex Assigned at Date Recorded Not on file Obstetrics History Last Filed Vital Signs Vital Sign Reading Time Taken Comments Blood Pressure 117/83 12/31/2013 1:53 PM TRUST OFFICER Pulse 92 12/31/2013 1:53 PM TRUST OFFICER Temperature - - Respiratory Rate - - [...] on filefrom Last 3 Months Care Teams Town Administrator Relationship Specialty Start Date End Date Pcp, No PCP - General 12/15/13 .
--- OUTSIDE RECORDS SUMMARY | 2022-01-18 08:01 | XMS_ITS | Clinical Summary ---
:1970 Author Organization [place] Address [facility] [place] [address] Care Team Providers Name Role Phone Silvestre [...] T ype Group Dates PREFERREDONE PREFERREDONE HMO [id number] 2016-[employer] [phone] [address] [address] [address]PO nt [address] [place] [address] Care Teams Supervisor Cartography Relationship Specialty Start Date End Date Silvestre Rider, PCP - General Internal Medicine
--- OUTSIDE RECORDS SUMMARY | 2022-01-18 08:01 | XMS_ITS | Encounter Summary ---
:1970 Author Organization [place] Address [address] [facility] [place] [address] Care Team Providers Name Role Phone Kenji Demetria Van Primary Care Provider Reason for Visit Reason Comments Consult hiatal hernia Encounter Details Date Type Department Care Team Description 05/02/2017 Office Visit [facility] ChasityQuinten, Hiatal hernia (Primary Dx); Surgery Clinic [place] LIGHT Gastroesophageal reflux disease, esophag itis presence not specified; [address] Morb id obesity due to excess calories (H) [address] [place] [address] [place] [address] Social History Tobacco Use Types Packs/Day Years [...] for Upper GI with double contrast at [facility] on 05/03/17 at 8:15am. Check in at 8am. Nothing to eat or drink after midnight. You are scheduled with Dr. Silvestre Rider at [facility] on 05/15/17 at 1:30pm. [id number] documented in this encounter Progress Notes Quinten Gaspar MD - 05/02/2017 1:00 PM CDT [facility] Clinic Consultation CHIEF COMPLAINT: Chief [...] ) documented in this encounter Care Teams Irrigating Pump Operator Relationship Specialty Start Date End Date Demetria Phillip PCP - General 04/27/17 05/10/[address] [phone] documented as of this encounter
--- OUTSIDE RECORDS SUMMARY | 2022-01-18 08:01 | XMS_ITS | Encounter Summary ---
:1970 Author Organization [place] Address [facility] [place] [address] Care Team Providers Name Role Phone Silvestre Rider MD Primary Care Provider Un available Reason for Visit Reason Comments No Show Encounter Details Date Type Department Care Team Description 05/15/2017 Office Visit [facility] Silvestre Rider NO SHOW (Primary Dx) Clinic Cally [place], [address] [facility], [address] [place] [address] AVAILABLE [phone] 11/23/2021 Social History Tobacco Use Types Packs/Day [...] Primary documented in this encounter Care Teams Hydraulic Rock Drill Operator Relationship Specialty Start Date End Date Silvestre Rider, PCP - General Internal Medicine documented as of this encounter
== END 2022-01-18 07:57 | disposition home or self-care (01) ==
LOC: WOUND 07:56
PROVIDERS: PCP Family Medicine; Visit Provider Nurse Practitioner Family
DX: E11.622 Type 2 diabetes mellitus with other skin ulcer (principal); I89.0 Lymphedema, not elsewhere classified; L97.222 Non-pressure chronic ulcer of left calf with fat layer exposed
CPT/HCPCS: 15271; Q4121

== ENCOUNTER 2022-01-25 08:00 | Outpatient (CLI) | payer OTHER, SELFPAY | END 2022-01-25 08:01 | disposition home or self-care (01) | LOC: WOUND 08:00 | PROVIDERS: PCP Family Medicine; Visit Provider Surgery | DX: E11.622 Type 2 diabetes mellitus with other skin ulcer (principal); L97.222 Non-pressure chronic ulcer of left calf with fat layer exposed; I89.0 Lymphedema, not elsewhere classified | CPT/HCPCS: 97597 ==

== ENCOUNTER 2022-02-01 11:06 | Outpatient (CLI) | payer OTHER, SELFPAY | END 2022-02-01 11:07 | disposition home or self-care (01) | LOC: WOUND 11:07 | PROVIDERS: PCP Family Medicine; Visit Provider Surgery | DX: E11.622 Type 2 diabetes mellitus with other skin ulcer (principal); L97.222 Non-pressure chronic ulcer of left calf with fat layer exposed; I89.0 Lymphedema, not elsewhere classified; Z79.4 Long term (current) use of insulin; Z79.84 Long term (current) use of oral hypoglycemic drugs | CPT/HCPCS: 15271; C5271; Q4121 ==

== ENCOUNTER 2022-02-08 08:01 | Outpatient (CLI) | payer OTHER, SELFPAY | END 2022-02-08 08:02 | disposition home or self-care (01) | LOC: WOUND 08:02 | PROVIDERS: PCP Family Medicine; Visit Provider Surgery | DX: E11.622 Type 2 diabetes mellitus with other skin ulcer (principal); L97.222 Non-pressure chronic ulcer of left calf with fat layer exposed; I89.0 Lymphedema, not elsewhere classified; Z79.4 Long term (current) use of insulin; Z79.85 Long-term (current) use of injectable non-insulin antidiabetic drugs | CPT/HCPCS: 99213 ==

== ENCOUNTER 2022-02-15 10:49 | Outpatient (CLI) | payer OTHER, SELFPAY | END 2022-02-15 10:50 | disposition home or self-care (01) | PROVIDERS: PCP Family Medicine; Visit Provider Surgery | DX: E11.622 Type 2 diabetes mellitus with other skin ulcer (principal); L97.222 Non-pressure chronic ulcer of left calf with fat layer exposed; I89.0 Lymphedema, not elsewhere classified; Z79.4 Long term (current) use of insulin; Z79.84 Long term (current) use of oral hypoglycemic drugs | CPT/HCPCS: 99213 ==

== ENCOUNTER 2022-02-22 09:18 | Outpatient (CLI) | payer OTHER, SELFPAY | END 2022-02-22 09:19 | disposition home or self-care (01) | LOC: WOUND 09:18 | PROVIDERS: PCP Family Medicine; Visit Provider Surgery | DX: E11.622 Type 2 diabetes mellitus with other skin ulcer (principal); L97.222 Non-pressure chronic ulcer of left calf with fat layer exposed; I89.0 Lymphedema, not elsewhere classified; Z79.4 Long term (current) use of insulin; Z79.84 Long term (current) use of oral hypoglycemic drugs | CPT/HCPCS: 97602; 99213 ==

== ENCOUNTER 2022-02-24 13:42 | Emergency (ER) | payer OTHER, SELFPAY ==
[2022-02-24 13:54] VITALS: BP 113/63; PULSE 105; RESP 16; TEMP 37.4; O2SAT 98; BMI 45.1
--- NOTE | 2022-02-24 14:22 | ED.GENADULT ---
HPI - General Adult General Chief complaint: Abdominal Pain Stated complaint: Syncope Time Seen by Provider: 02/24/22 14:17 Source: patient Mode of arrival: ambulatory Limitations: no limitations History of Present Illness HPI narrative: 51-year-old female coming in today complaining of abdominal pain that started in the middle of the night. She woke up and was unable to go back to sleep secondary to discomfort and chills which lasted several hours. She took some NSAIDs this morning and went to work, at work felt very fatigued which is unusual for her and felt lightheaded. She had a presyncopal episode where she had a sit-down put her head between her legs. Her abdominal discomfort continue so she presents today. She does have a history of Crohn's disease which has been stable. Her last Remicade infusion was in December. She does have multiple bowel movements per day and this continues and is not unusual for her aside from the fact that she perhaps had slight more stool output today and she has had in the past. No blood present. She denies any urinary symptoms. No vomiting. No fevers that she is aware of. Her pain is diffuse but often localizes to the right upper quadrant and epigastric region and then radiates across her mid back. Patient does have a history of cholecystectomy. Related Data Home Medications Medication Instructions Recorded Confirmed albuterol sulfate 90 mcg/actuation 2 inh inhalation Q4H PRN 12/02/21 02/24/22 aerosol inhaler aspirin 81 mg tablet,delayed 81 mg PO QDAY 12/02/21 02/24/22 release budesonide 3 mg 3 mg PO Q8H PRN 12/02/21 02/24/22 capsule,delayed,extended release lactobacillus combination no.4 3 3,000 mmu cells PO QDAY 12/02/21 02/24/22 billion cell capsule (Probiotic) omega 1-gip-pao-fish oil 100 1 cap PO DAILY 12/02/21 02/24/22 mg-160 mg-1,000 mg capsule (Fish Oil) cholecalciferol (vitamin D3) 25 25 mcg PO DAILY 01/19/22 02/24/22 mcg (1,000 unit) tablet infliximab 100 mg intravenous 100 mg IV PRN 01/19/22 01/19/22 solution (Remicade) ascorbic acid (vitamin C) 500 mg 500 mg PO DAILY 01/20/22 02/24/22 tablet tirzepatide 5 mg/0.5 mL 5 mg subcut QWEEK 01/23/22 02/24/22 subcutaneous pen injector (Mounjaro) tirzepatide 7.5 mg/0.5 mL 7.5 mg subcut QWEEK 01/23/22 subcutaneous pen injector (Mounjaro) insulin glargine-yfgn 100 unit/mL 30 unit subcut QDAY 02/24/22 02/24/22 (3 mL) subcutaneous pen (Semglee (insulin glargine-yfgn) Pen) Previous Rx's Medication Instructions Recorded glimepiride 4 mg tablet 8 mg PO QDAY #180 tabs 12/02/21 losartan 50 mg-hydrochlorothiazide 1 tab PO QDAY #90 tabs 12/02/21 12.5 mg tablet furosemide 20 mg tablet 40 mg PO QAM #180 tabs 12/23/21 omeprazole 20 mg capsule,delayed 20 mg PO BID #180 caps 12/23/21 release acetic acid 0.25 % irrigation 1 irrig irrigation Q3H #6,000 mL 01/11/22 solution amoxicillin 500 mg tablet 1,000 mg PO BID 7 days #28 tabs 02/24/22 azithromycin 250 mg tablet See Taper PO DIRECTED #6 tabs 02/24/22 Allergies Allergy/AdvReac Type Severity Reaction Status Date / Time clavulanic acid Allergy Verified 02/24/22 13:51 morphine AdvReac Intermediate Vomiting Verified 02/24/22 13:51 Review of Systems Status of ROS: Reports: 10 or more systems reviewed and unremarkable except as noted in History and below [facility] Medical History Abscess of Laurier's duct Chronic gastroesophageal reflux disease Crohn's disease Depression (02/28/12) Hypertension Intracranial hypertension Low vitamin D level Migraine headache (02/28/12) Morbid obesity Plantar fasciitis Type 2 diabetes mellitus Urinary urgency Surgical History History of 3 sections History of hysterectomy (2005) History of incisional hernia repair (2012) History of laparoscopic cholecystectomy (2012) History of left oophorectomy History of unilateral oophorectomy (2009) Status post incision and drainage (03/18/21) Family History Uncle Colon cancer Aunt Breast cancer Maternal Grandmother Heart disease Stroke Maternal Grandfather Heart disease Father Heart disease Diabetes High blood pressure Basal cell carcinoma Obesity Kidney disease Mother Diabetes Obesity Daughter Anxiety Son ADHD Brother Obesity Social History Narrative: walks 1mile 3x per week, , 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 Alert and oriented. Answers questions appropriately. Mood and affect are appropriate. Thoughts are goal oriented and rational. No tangential or magical thinking noted. Patient speaks in full sentences without needing to catch their breath. HEENT: Normocephalic atraumatic. Pupils are equally round reactive to light. Extraocular muscles are intact. Conjunctivae are moist without any icterus noted. Moist mucous membranes. Posterior pharynx is normal. Neck is soft without any lymphadenopathy or thyromegaly. No masses are appreciated. Cardiovascular: Heart is regular rate and rhythm S1 and S2 are present without any murmurs. Lungs: Clear to auscultation bilaterally no wheezes rhonchi or rales are appreciated. Patient takes deep breaths without any discomfort. Abdomen: Soft and nondistended with normal bowel sounds. No guarding or rebound tenderness. She has some very mild discomfort in the right upper quadrant and epigastric area. She does have discomfort in her mid back more towards the left than the right. Extremities: Bilateral lower extremities are without edema. Skin: Well perfused without any obvious rashes. Const: Vital Signs, click to edit/add: Vital Signs - 24 hr 02/24/22 13:54 02/24/22 15:18 Temperature 99.4 F 99.1 F Pulse Rate [Pulse Oximeter] 105 H 100 Respiratory Rate 16 16 Blood Pressure [Ri ght Upper Arm] 113/63 112/62 Pulse Oximetry 98 94 Oxygen Delivery Me thod Room Air Room Air Course Course Hospital Course: IV was placed and labs were drawn. Patient does have a white cell count that is elevated at 17,000 thousand, 79% neutrophils. Chemistries were unremarkable. CRP elevated at 4.3. UA unremarkable. Abdominal CT scan does not show any intra-abdominal abnormalities however does show some peribronchial nodularities of the left lower lobe consistent with infection or inflammation. I did call the radiologist to discuss the meaning of this and he stated that this is a pneumonia. Vital Signs Vital signs: Initial Vital Signs Temperature 99.4 F 02/24/22 13:54 Temperature Source Temporal Artery Scan 02/24/22 13:54 Pulse Rate 105 H 02/24/22 13:54 Pulse Rhythm 02/24/22 13:54 Pulse Strength 3+ Normal 02/24/22 13:54 Respiratory Rate 16 02/24/22 13:54 Blood Pressure 113/63 02/24/22 13:54 Blood Pressure Mean 79 02/24/22 13:54 Blood Pressure Position Supine 02/24/22 13:54 Pulse Oximetry 98 02/24/22 13:54 Oxygen Delivery Method 02/24/22 13:54 Vital Signs Temperature 99.4 F 02/24/22 13:54 Pulse Rate 105 H 02/24/22 13:54 Respiratory Rate 16 02/24/22 13:54 Blood Pressure 113/63 02/24/22 13:54 Pulse Oximetry 98 02/24/22 13:54 Oxygen Delivery Method 02/24/22 13:54 Temperature 99.1 F 02/24/22 15:18 Pulse Rate 100 02/24/22 15:18 Respiratory Rate 16 02/24/22 15:18 Blood Pressure 112/62 02/24/22 15:18 Pulse Oximetry 94 02/24/22 15:18 Oxygen Delivery Method 02/24/22 15:18 Medical Decision Making MDM Narrative Medical decision making narrative: 51-year-old female generalized not feeling well with evidence of pneumonia on CT scan with elevated white cell count and CRP. At this point we will go ahead and treat her with amoxicillin and azithromycin. Medical Records Medical records reviewed: Yes I reviewed the patient's medical records Lab Data Lab results reviewed: Yes I reviewed the patient's lab results Labs: Lab Results 02/24/22 02/24/22 02/24/22 Range/Units 14:23 14:37 14:37 WBC 17.01 H (4.50-11.00) K/uL RBC 4.23 (4.00-5.20) m/uL Hgb 12.6 (12.0-16.0) gm/dL Hct 39.1 (33.0-51.0) % MCV 92 (80-100) fL MCH 30 (26-34) pg MCHC 32 (32-36) gm/dL RDW Coeff of Mary Kate 12.4 (11.5-15.5) % Plt Count 278 (140-440) K/uL Neut % (Auto) 79.5 H (42.0-72.0) % Lymph % (Auto) 15.3 L (20-44) % [place] % (Auto) 4.7 (0.0-11.0) % Eos % (Auto) 0.1 (0.0-7.0) % Baso % (Auto) 0.1 (0.0-3.0) % Neut # (Auto) 13.50 H (1.7-7.0) K/uL Lymph # (Auto) 2.60 (0.90-2.90) K/uL [place]ell # (Auto) 0.80 (0.00-0.90) K/UL Eos # (Auto) 0.00 (0.00-0.50) K/uL Baso # (Auto) 0.00 (0.00-0.30) K/uL Sodium 136 (135-149) mmol/L Potassium 3.9 (3.6-5.1) mmol/L Chloride 97 (96-114) mmol/L Carbon Dioxide 32 (20-32) mmol/L BUN 17 (7-30) mg/dL Creatinine 0.7 (0.5-1.5) mg/dL Estimated Creat Clear 82.10 Estimated GFR 105 ml/min Glucose 110 (60-115) mg/dL Lactate (0.5-1.9) mmol/L Calcium 9.2 (8.4-10.6) mg/dL Total Bilirubin (0.1-1.5) mg/dL Direct Bilirubin (0.0-0.5) mg/dL AST (12-35) U/L ALT (4-35) U/L Alkaline Phosphatase (40-150) U/L C-Reactive Protein 4.3 H (0.5-1.0) mg/dL Total Protein (6.0-8.3) g/dL Albumin (3.3-5.0) g/dL Lipase (23-300) U/L Urine Color Cherri A (Yellow) Urine Appearance Clear (Clear) Urine pH 6.5 (5.0-8.5) Ur Specific [place] 1.025 (1.000-1.030) Urine Protein Trace A (Negative) Urine Glucose (UA) Negative (Negative) Urine Ketones Negative (Negative) Urine Blood Negative (Negative) Urine Nitrite Negative (Negative) Urine Bilirubin Negative (Negative) Urine Urobilinogen 0.2 (0.2-1.0) Ur Leukocyte Esterase Negative (Negative) Urine RBC 0-2 (0-2) Urine WBC 0-2 (0-5) Ur Squamous Epith Cells Moderate A (None-Few) Urine Bacteria Few A (None) Urine Mucus Many A (None) 02/24/22 02/24/22 Range/Units 14:37 14:37 WBC (4.50-11.00) K/uL RBC (4.00-5.20) m/uL Hgb (12.0-16.0) gm/dL Hct (33.0-51.0) % MCV (80-100) fL MCH (26-34) pg MCHC (32-36) gm/dL RDW Coeff of Mary Kate (11.5-15.5) % Plt Count (140-440) K/uL Neut % (Auto) (42.0-72.0) % Lymph % (Auto) (20-44) % [place] % (Auto) (0.0-11.0) % Eos % (Auto) (0.0-7.0) % Baso % (Auto) (0.0-3.0) % Neut # (Auto) (1.7-7.0) K/uL Lymph # (Auto) (0.90-2.90) K/uL [place] # (Auto) (0.00-0.90) K/UL Eos # (Auto) (0.00-0.50) K/uL Baso # (Auto) (0.00-0.30) K/uL Sodium (135-149) mmol/L Potassium (3.6-5.1) mmol/L Chloride (96-114) mmol/L Carbon Dioxide (20-32) mmol/L BUN (7-30) mg/dL Creatinine (0.5-1.5) mg/dL Estimated Creat Clear Estimated GFR ml/min Glucose (60-115) mg/dL Lactate 1.2 (0.5-1.9) mmol/L Calcium (8.4-10.6) mg/dL Total Bilirubin 0.7 (0.1-1.5) mg/dL Direct Bilirubin 0.2 (0.0-0.5) mg/dL AST 22 (12-35) U/L ALT 28 (4-35) U/L Alkaline Phosphatase 113 (40-150) U/L C-Reactive Protein (0.5-1.0) mg/dL Total Protein 7.0 (6.0-8.3) g/dL Albumin 4.1 (3.3-5.0) g/dL Lipase 59 (23-300) U/L Urine Color (Yellow) Urine Appearance (Clear) Urine pH (5.0-8.5) Ur Specific [place] (1.000-1.030) Urine Protein (Negative) Urine Glucose (UA) (Negative) Urine Ketones (Negative) Urine Blood (Negative) Urine Nitrite (Negative) Urine Bilirubin (Negative) Urine Urobilinogen (0.2-1.0) Ur Leukocyte Esterase (Negative) Urine RBC (0-2) Urine WBC (0-5) Ur Squamous Epith Cells (None-Few) Urine Bacteria (None) Urine Mucus (None) Imaging Data CT scan - abdomen: Attestation: I have reviewed the pertinent imaging results. Radiologist's impression: CT abdomen and pelvis acquired with 130 mL Isovue 370 contrast. COMPARISON: CT of the head/pelvis dated 06/11/2020. FINDINGS: Lower chest: Extensive peribronchial nodularity in the superior segment of the left lower lobe, likely reflective of an infectious/inflammatory process. Liver: No suspicious focal hepatic lesion. Gallbladder and bile ducts: Postcholecystectomy. Pancreas: Unremarkable. Spleen: Unremarkable. Adrenal glands: Unremarkable. Kidneys: Kidneys enhance symmetrically, without hydronephrosis. Too small to characterize hypodense right renal lesion. Stable bilateral nonobstructing calculi measuring up to 0.4 cm in the lower pole of the left kidney. Retroperitoneum: No lymphadenopathy. Bowel and mesentery: Bowel is not obstructed. Normal appendix. No significant ascites. Stable mild haziness of the mid abdominal mesentery. No pneumoperitoneum. Bladder: Unremarkable for degree of distension. Reproductive organs: Posthysterectomy. Pelvic lymph nodes: No lymphadenopathy. Vessels: Unremarkable. Abdominal wall: Postsurgical changes of ventral abdominal wall hernia repair, with small residual fat filled ventral pelvic wall hernia, unchanged. Large right gluteal intramuscular lipomatous lesion, unchanged. No acute abdominal wall abnormality. Bones: Multilevel degenerative changes of the spine. No suspicious/aggressive focal osseous lesion. IMPRESSION: 1. Extensive peribronchial nodularity in the superior segment of the left lower lobe of the lung, likely reflective of an infectious/inflammatory process. 2. Stable bilateral nonobstructing renal calculi, measuring up to 0.4 cm in the lower pole of the left kidney. 3. Additional incidental findings as above. Discharge Plan Discharge Clinical Impression: Pneumonia Patient Disposition: Home, Self-Care Condition: Stable Additional Instructions: You may diagnosed with pneumonia. Will treat with amoxicillin and azithromycin. Take all medication as prescribed. Okay to use Tylenol or ibuprofen as needed for discomfort. Follow-up with your primary care provider in 10-14 days. Prescriptions: New azithromycin 250 mg tablet See Taper PO DIRECTED Qty: 6 0RF Taper: Z-JAMIL 500 mg Q24H for 1 Day and 0 Hour 250 mg Q24H for 4 Days and 0 Hour Rx Instructions: For 250 mg dose pack: take 500 mg today (day 1), then 250 mg for 4 days (days 2-5) amoxicillin 500 mg tablet 1,000 mg PO BID 7 Days Qty: 28 0RF No Action albuterol sulfate 90 mcg/actuation HFA aerosol inhaler 2 inh inhalation Q4H PRN Label Comments: INHALE 2 PUFFS BY MOUTH EVERY 4 HOURS NEEDED budesonide 3 mg capsule,delayed,extend.release 3 mg PO Q8H PRN aspirin 81 mg tablet,delayed release (DR/EC) 81 mg PO QDAY Fish Oil 100-160-1,000 mg capsule 1 cap PO DAILY Probiotic 3 billion cell capsule 3,000 mmu cells PO QDAY Rx Instructions: administer with a meal losartan-hydrochlorothiazide 50-12.5 mg tablet 1 tab PO QDAY Qty: 90 1RF glimepiride 4 mg tablet 8 mg PO QDAY Qty: 180 3RF cholecalciferol (vitamin D3) 25 mcg (1,000 unit) tablet 25 mcg PO DAILY infliximab [Remicade] 100 mg recon soln 100 mg IV PRN Rx Instructions: q16 weeks ascorbic acid (vitamin C) 500 mg tablet 500 mg PO DAILY insulin glargine-yfgn [Semglee(insulin glarg-yfgn)Pen] 100 unit/mL (3 mL) insulin pen 30 unit SUBCUT QDAY Rx Instructions: Fill when needed furosemide 20 mg tablet 40 mg PO QAM Qty: 180 3RF omeprazole 20 mg capsule,delayed release(DR/EC) 20 mg PO BID Qty: 180 3RF acetic acid 0.25 % solution 1 irrig irrigation Q3H Qty: 6000 0RF Rx Instructions: apply to wound during dressing changes Mounjaro 5 mg/0.5 mL pen injector 5 mg subcut QWEEK Rx Instructions: after the 2.5mg for 4 weeks Mounjaro 7.5 mg/0.5 mL pen injector 7.5 mg subcut QWEEK Rx Instructions: after the 4 week use of 5mg dosage Follow Up/Referrals: Alen Snider MD [Primary Care Provider] - Stand Alone Forms: [employer] Info Instructions
[2022-02-24 14:31] LABS: Appearance Urine Clear (Clear); Bilirubin Urine Negative (Negative); Blood Urine Negative (Negative); Color Urine Amber (Yellow); Glucose Urine Negative (Negative); Ketones Urine Negative (Negative); Leukocyte Esterase Urine Negative (Negative); Nitrite Urine Negative (Negative); Protein Urine Trace (Negative); Specific Gravity Urine 1.025 (1.000-1.030); Urobilinogen Urine 0.2 (0.2-1.0); pH Urine 6.5 (5.0-8.5)
[2022-02-24] MEDS: ACETAMINOPHEN 500 MG TABLET 1000 MG PO (14:47)
[2022-02-24 14:50] LABS: Bacteria Urine Few; Mucus Urine Many; RBC Urine 0-2 (0-2); Squamous Epithelial Cell Urine Moderate (None-Few); WBC Urine 0-2 (0-5)
[2022-02-24 15:18] VITALS: BP 112/62; PULSE 100; RESP 16; TEMP 37.3; O2SAT 94
[2022-02-24 15:39] LABS: Lactate* 1.2 mmol/L (0.5-1.9)
[2022-02-24 15:47] LABS: Basophils Percent Auto 0.1 % (0.0-3.0); Eosinophils Percent Auto 0.1 % (0.0-7.0); Hematocrit 39.1 % (33.0-51.0); Hemoglobin* 12.6 gm/dL (12.0-16.0); Immature Granulocytes Pct Auto 0.3 %; Lymphocytes Percent Auto 15.3 % (20-44); Mean Corpuscular HGB Conc 32 gm/dL (32-36); Mean Corpuscular Hemoglobin 30 pg (26-34); Mean Corpuscular Volume 92 fL (80-100); Monocytes Percent Auto 4.7 % (0.0-11.0); Neutrophils Percent Auto 79.5 % (42.0-72.0); Platelet Count* 278 K/uL (140-440); RDW Coefficient of Variation % 12.4 % (11.5-15.5); Red Blood Count 4.23 m/uL (4.00-5.20); White Blood Count* 17.01 K/uL (4.50-11.00)
[2022-02-24 15:50] LABS: Slide Review Reflex No
--- NOTE | 2022-02-24 15:54 | CRLHL7_ITS ---
For Patients: As a result of the Century Cures Act, medical imaging exams and procedure reports are released immediately into your electronic medical record. You may view this report before your referring provider. If you have questions, please contact your health care provider. INDICATION: Abdominal pain. TECHNIQUE: CT abdomen and pelvis acquired with 130 mL Isovue 370 contrast. COMPARISON: CT of the head/pelvis dated 06/11/2020. FINDINGS: Lower chest: Extensive peribronchial nodularity in the superior segment of the left lower lobe, likely reflective of an infectious/inflammatory process. Liver: No suspicious focal hepatic lesion. Gallbladder and bile ducts: Postcholecystectomy. Pancreas: Unremarkable. Spleen: Unremarkable. Adrenal glands: Unremarkable. Kidneys: Kidneys enhance symmetrically, without hydronephrosis. Too small to characterize hypodense right renal lesion. Stable bilateral nonobstructing calculi measuring up to 0.4 cm in the lower pole of the left kidney. Retroperitoneum: No lymphadenopathy. Bowel and mesentery: Bowel is not obstructed. Normal appendix. No significant ascites. Stable mild haziness of the mid abdominal mesentery. No pneumoperitoneum. Bladder: Unremarkable for degree of distension. Reproductive organs: Posthysterectomy. Pelvic lymph nodes: No lymphadenopathy. Vessels: Unremarkable. Abdominal wall: Postsurgical changes of ventral abdominal wall hernia repair, with small residual fat filled ventral pelvic wall hernia, unchanged. Large right gluteal intramuscular lipomatous lesion, unchanged. No acute abdominal wall abnormality. Bones: Multilevel degenerative changes of the spine. No suspicious/aggressive focal osseous lesion. IMPRESSION: 1. Extensive peribronchial nodularity in the superior segment of the left lower lobe of the lung, likely reflective of an infectious/inflammatory process. 2. Stable bilateral nonobstructing renal calculi, measuring up to 0.4 cm in the lower pole of the left kidney. 3. Additional incidental findings as above. Please note that all CT scans at this facility use dose modulation, iterative reconstruction, and/or weight-based dosing when appropriate to reduce radiation dose to as low as reasonably achievable. Dictated by Peggy Villasenor MD @ 02/24/2022 6:33:43 PM (Electronically Signed)
[2022-02-24 16:05] LABS: Chloride* 97 mmol/L (96-114)
[2022-02-24 16:06] LABS: Potassium* 3.9 mmol/L (3.6-5.1); Sodium* 136 mmol/L (135-149)
[2022-02-24 16:08] LABS: Creatinine* 0.7 mg/dL (0.5-1.5); Estimated Glomerular Filt Rate 105 ml/min
[2022-02-24 16:09] LABS: Blood Urea Nitrogen* 17 mg/dL (7-30); Carbon Dioxide* 32 mmol/L (20-32); Glucose* 110 mg/dL (60-115)
[2022-02-24 16:10] LABS: Calcium* 9.2 mg/dL (8.4-10.6)
[2022-02-24 16:12] LABS: C Reactive Protein* 4.3 mg/dL (0.5-1.0)
[2022-02-24 16:28] LABS: Albumin* 4.1 g/dL (3.3-5.0)
[2022-02-24 16:31] LABS: Aspartate Amino Transferase* 22 U/L (12-35); Bilirubin Direct* 0.2 mg/dL (0.0-0.5); Bilirubin Total* 0.7 mg/dL (0.1-1.5)
[2022-02-24 16:32] LABS: Alanine Aminotransferase* 28 U/L (4-35); Alkaline Phosphatase* 113 U/L (40-150); Lipase* 59 U/L (23-300)
== END 2022-02-24 19:11 | disposition home or self-care (01) ==
PROVIDERS: Emergency Provider Family Medicine; PCP Family Medicine
DX: J18.9 Pneumonia, unspecified organism (principal)
CPT/HCPCS: 36415; 74177; 80048; 80076; 81001; 83605; 83690; 85025; 86140; 87086; 99284; 99285; A9270; Q9967

== ENCOUNTER 2022-03-08 10:59 | Outpatient (CLI) | payer OTHER, SELFPAY | END 2022-03-08 11:00 | disposition home or self-care (01) | LOC: WOUND 10:59 | PROVIDERS: PCP Family Medicine; Visit Provider Surgery | DX: E11.622 Type 2 diabetes mellitus with other skin ulcer (principal); L97.222 Non-pressure chronic ulcer of left calf with fat layer exposed; I89.0 Lymphedema, not elsewhere classified; Z79.4 Long term (current) use of insulin; Z79.84 Long term (current) use of oral hypoglycemic drugs | CPT/HCPCS: 99213 ==

== ENCOUNTER 2022-03-15 08:00 | Outpatient (CLI) | payer OTHER, SELFPAY | END 2022-03-15 08:01 | disposition home or self-care (01) | LOC: WOUND 08:00 | PROVIDERS: PCP Family Medicine; Visit Provider Physician Assistant Surgical | DX: E11.622 Type 2 diabetes mellitus with other skin ulcer (principal); L97.222 Non-pressure chronic ulcer of left calf with fat layer exposed; I89.0 Lymphedema, not elsewhere classified; Z79.4 Long term (current) use of insulin; Z79.84 Long term (current) use of oral hypoglycemic drugs | CPT/HCPCS: 97597 ==

== ENCOUNTER 2022-03-22 08:02 | Outpatient (CLI) | payer OTHER, SELFPAY | END 2022-03-22 08:03 | disposition home or self-care (01) | LOC: WOUND 08:02 | PROVIDERS: PCP Family Medicine; Visit Provider Surgery | DX: E11.622 Type 2 diabetes mellitus with other skin ulcer (principal); L97.222 Non-pressure chronic ulcer of left calf with fat layer exposed; I89.0 Lymphedema, not elsewhere classified; Z79.4 Long term (current) use of insulin | CPT/HCPCS: 99212 ==

== ENCOUNTER 2022-03-29 10:58 | Outpatient (CLI) | payer OTHER, SELFPAY | END 2022-03-29 10:59 | disposition home or self-care (01) | LOC: WOUND 10:58 | PROVIDERS: PCP Family Medicine; Visit Provider Surgery | DX: E11.622 Type 2 diabetes mellitus with other skin ulcer (principal); L97.222 Non-pressure chronic ulcer of left calf with fat layer exposed; I89.0 Lymphedema, not elsewhere classified; Z79.4 Long term (current) use of insulin; Z79.84 Long term (current) use of oral hypoglycemic drugs | CPT/HCPCS: 99212 ==

== ENCOUNTER 2022-04-12 07:58 | Outpatient (CLI) | payer OTHER, SELFPAY | END 2022-04-12 07:59 | disposition home or self-care (01) | LOC: WOUND 07:58 | PROVIDERS: PCP Family Medicine; Visit Provider Surgery | DX: E11.622 Type 2 diabetes mellitus with other skin ulcer (principal); L97.222 Non-pressure chronic ulcer of left calf with fat layer exposed; I89.0 Lymphedema, not elsewhere classified; Z79.85 Long-term (current) use of injectable non-insulin antidiabetic drugs | CPT/HCPCS: 99213 ==

== ENCOUNTER 2022-06-11 16:42 | Emergency (ER) | payer OTHER, SELFPAY ==
[2022-06-11 16:54] VITALS: BP 134/79; PULSE 115; TEMP 37.1; O2SAT 134; BMI 44.3
--- NOTE | 2022-06-11 17:14 | CRLHL7_ITS ---
For Patients: As a result of the Century Cures Act, medical imaging exams and procedure reports are released immediately into your electronic medical record. You may view this report before your referring provider. If you have questions, please contact your health care provider. INDICATION : Diffuse abdominal pain, history of Crohn`s disease, history of kidney stones TECHNIQUE: CT abdomen and pelvis acquired with 122 mL Isovue 370 IV contrast. COMPARISON: 02/24/[address] FINDINGS: Lower chest: Unremarkable. Liver: Unremarkable. Normal in size and attenuation. No masses. Gallbladder and bile ducts: Cholecystectomy. No biliary dilatation. Pancreas: Unremarkable. No mass or inflammation. Spleen: Unremarkable. Normal in size. No masses. Adrenal glands: Unremarkable. No nodules. Kidneys: Nonobstructing nephrolithiasis. No masses or hydronephrosis. GI tract: Mild diffuse colonic wall thickening. Wall thickening and hyperemia in the distal and terminal ileum. These findings are new and compatible with active Crohn`s disease. No obstruction. No abscess or sinus tract identified. Vasculature: Unremarkable. Mesenteric arteries are patent. Lymph nodes: No lymphadenopathy. Omentum/Peritoneum/Abdominal Wall: Ventral hernia repair. Residual recurrent small fat containing ventral hernia Pelvis: Hysterectomy. Bones: Intramuscular lipoma in the right gluteus IMPRESSION: Inflammation in the ileum and colon compatible with active Crohn`s disease. Please note that all CT scans at this facility use dose modulation, iterative reconstruction, and/or weight-based dosing when appropriate to reduce radiation dose to as low as reasonably achievable. Dictated by Chintan Romero MD @ 06/11/2022 7:20:23 PM (Electronically Signed)
--- NOTE | 2022-06-11 17:14 | CRLHL7_ITS ---
For Patients: As a result of the Cures Act, medical imaging exams and procedure reports are released immediately into your electronic medical record. You may view this report before your referring provider. If you have questions, please contact your health care provider. Indication: Shortness of breath Comparison: None available. Technique: PA and lateral views of the chest Findings: There is mild interstitial prominence which may represent minimal pulmonary vascular congestion without dense consolidation, effusion or pneumothorax. The cardiomediastinal silhouette is within normal limits. The bony thorax is grossly intact. Impression: Mild interstitial prominence which may represent minimal pulmonary vascular congestion without dense consolidation. Dictated by Vasile Govea MD @ 06/11/2022 7:10:25 PM (Electronically Signed)
[2022-06-11] MEDS: 0.9 % SODIUM CHLORIDE 1000 ml 1,000 ML IV (17:32)
[2022-06-11 17:37] LABS: Lactate* 0.8 mmol/L (0.5-1.9)
[2022-06-11 17:42] LABS: Basophils Percent Auto 0.2 % (0.0-3.0); Eosinophils Percent Auto 0.8 % (0.0-7.0); Hemoglobin* 14.1 gm/dL (12.0-16.0); Immature Granulocytes Pct Auto 0.4 %; Mean Corpuscular HGB Conc 33 gm/dL (32-36); Mean Corpuscular Hemoglobin 30 pg (26-34); Mean Corpuscular Volume 91 fL (80-100); Monocytes Percent Auto 5.2 % (0.0-11.0); Neutrophils Percent Auto 76.4 % (42.0-72.0); Platelet Count* 303 K/uL (140-440); RDW Coefficient of Variation % 12.6 % (11.5-15.5); Red Blood Count 4.75 m/uL (4.00-5.20); White Blood Count* 12.19 K/uL (4.50-11.00)
[2022-06-11 17:47] LABS: Slide Review Reflex No
[2022-06-11 17:53] LABS: Albumin* 4.5 g/dL (3.3-5.0); Chloride* 101 mmol/L (96-114); Sodium* 138 mmol/L (135-149)
--- NOTE | 2022-06-11 17:54 | ED_ITS ---
HPI - General Adult General Chief complaint: Abdominal Pain Stated complaint: Severe abdominal pain, possible crons flare up Time Seen by Provider: 06/11/22 16:43 Source: patient Mode of arrival: ambulatory Limitations: no limitations History of Present Illness HPI narrative: 52-year-old female coming in today complaining of abdominal pain going on for several days. Pain is located across the entire abdomen but is worse in the left upper quadrant. Patient concerned about having a Crohn's flare up. She states that she has been having increasing loose stools over the last several days to the point where now her stools are green and liquid. She has about 10 stools per day. She gets chills at night. No fevers that she is aware of. Appetite is down, no vomiting. Nothing seems to make the abdominal discomfort better or worse. Related Data Home Medications Medication Instructions Recorded Confirmed albuterol sulfate 90 mcg/actuation 2 inh inhalation Q4H PRN 12/02/21 04/21/22 aerosol inhaler aspirin 81 mg tablet,delayed 81 mg PO QDAY 12/02/21 04/21/22 release budesonide 3 mg 3 mg PO Q8H PRN 12/02/21 04/21/22 capsule,delayed,extended release lactobacillus combination no.4 3 3,000 mmu cells PO QDAY 12/02/21 04/21/22 billion cell capsule (Probiotic) omega 3-qwv-mvd-fish oil 100 1 cap PO DAILY 12/02/21 04/21/22 mg-160 mg-1,000 mg capsule (Fish Oil) infliximab 100 mg intravenous 100 mg IV PRN 01/19/22 04/21/22 solution (Remicade) ascorbic acid (vitamin C) 500 mg 500 mg PO DAILY 01/20/22 04/21/22 tablet cholecalciferol (vitamin D3) 25 2,000 unit PO DAILY 04/21/22 04/21/22 mcg (1,000 unit) tablet furosemide 20 mg tablet 20 mg PO QAM 04/21/22 04/21/22 glimepiride 4 mg tablet 4 mg PO QDAY 04/21/22 04/21/22 insulin glargine-yfgn 100 unit/mL 20 unit subcut QDAY 04/21/22 04/21/22 (3 mL) subcutaneous pen (Semglee (insulin glargine-yfgn) Pen) Previous Rx's Medication Instructions Recorded losartan 50 mg-hydrochlorothiazide 1 tab PO QDAY #90 tabs 12/02/21 12.5 mg tablet omeprazole 20 mg capsule,delayed 20 mg PO BID #180 caps 12/23/21 release tirzepatide 10 mg/0.5 mL 10 mg (0.5 mL) subcut QWEEK #2 mL 04/28/22 subcutaneous pen injector potassium chloride 20 mEq 20 meq PO DAILY #2 tabs 06/11/22 tablet,extended release prednisone 20 mg tablet 40 mg (2 x 20 mg) PO DAILY 10 days 06/11/22 #20 tabs Allergies Allergy/AdvReac Type Severity Reaction Status Date / Time clavulanic acid Allergy Verified 06/11/22 18:16 morphine AdvReac Intermediate Vomiting Verified 06/11/22 18:16 Review of Systems Status of ROS: Reports: 10 or more systems reviewed and unremarkable except as noted in History and below [facility] Medical History Urinary urgency ?R39.15 - Urgency of urination (ICD-10) Plantar fasciitis ?M72.2 - Plantar fascial fibromatosis (ICD-10) Morbid obesity ?E66.01 - Morbid (severe) obesity due to excess calories (ICD-10) Migraine headache (02/28/12) ?G43.909 - Migraine, unspecified, not intractable, without status migrainosus (ICD-10) Low vitamin D level ?R79.89 - Other specified abnormal findings of blood chemistry (ICD-10) Intracranial hypertension ?G93.2 - Benign intracranial hypertension (ICD-10) Depression (02/28/12) ?F32.A - Depression, unspecified (ICD-10) Crohn's disease ?K50.90 - Crohn's disease, unspecified, without complications (ICD-10) Chronic gastroesophageal reflux disease ?K21.9 - Gastro-esophageal reflux disease without esophagitis (ICD-10) Abscess of [place]'s duct ?N34.0 - Urethral abscess (ICD-10) Type 2 diabetes mellitus ?E11.9 - Type 2 diabetes mellitus without complications (ICD-10) Hypertension ?I10 - Essential (primary) hypertension (ICD-10) Surgical History Status post incision and drainage (03/18/21) ?Z98.890 - Other specified postprocedural states (ICD-10) History of unilateral oophorectomy (2009) ?Z90.721 - Acquired absence of ovaries, unilateral (ICD-10) History of left oophorectomy ?Z90.721 - Acquired absence of ovaries, unilateral (ICD-10) History of laparoscopic cholecystectomy (2012) ?Z90.49 - Acquired absence of other specified parts of digestive tract (ICD- 10) History of incisional hernia repair (2012) ?Z98.890 - Other specified postprocedural states (ICD-10) ?Z87.19 - Personal history of other diseases of the digestive system (ICD-10) History of hysterectomy (2005) ?Z90.710 - Acquired absence of both cervix and uterus (ICD-10) History of 3 sections ?Z98.891 - History of uterine scar from previous surgery (ICD-10) Family History Uncle Colon cancer Aunt Breast cancer Maternal Grandmother Heart disease Stroke Maternal Grandfather Heart disease Father Heart disease Diabetes High blood pressure Basal cell carcinoma Obesity Kidney disease Mother Diabetes Obesity Daughter Anxiety Son ADHD Brother Obesity Social History Narrative: walks 1mile 3x per week, , 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 Alert and oriented. Answers questions appropriately. Mood and affect are appropriate. Thoughts are goal oriented and rational. No tangential or magical thinking noted. Patient speaks in full sentences without needing to catch their breath. HEENT: Normocephalic atraumatic. Pupils are equally round reactive to light. Extraocular muscles are intact. Conjunctivae are moist without any icterus noted. Moist mucous membranes. Posterior pharynx is normal. Neck is soft without any lymphadenopathy or thyromegaly. No masses are appreciated. Cardiovascular: Heart is regular rate and rhythm S1 and S2 are present without any murmurs. Lungs: Clear to auscultation bilaterally no wheezes rhonchi or rales are appreciated. Patient takes deep breaths without any discomfort. Abdomen: Soft and nondistended. She has diffuse tenderness throughout the entire abdomen, normal bowel sounds. No guarding or rebound tenderness, no peritoneal signs. Extremities: Bilateral lower extremities are without edema. Normal DP and PT pulses. Skin: Well perfused without any obvious rashes. Const: Vital Signs, click to edit/add: Vital Signs - 24 hr 06/11/22 16:54 Temperature 98.8 F Pulse Rate [Pulse Oximeter] 115 H Blood Pressure [Ri ght Upper Arm] 134/79 Pulse Oximetry 134 H Oxygen Delivery Me thod Room Air Course Course Hospital Course: IV established, normal saline started and labs were drawn. White blood cell slightly elevated at 12.19. Sed rate elevated at 34 and CRP elevated at 3.2. Potassium low at 3.0 this was replaced with oral potassium 20 mEq. Urine unremarkable. Chest x-ray, read by me, does not show any acute infiltrates. Abdominal CT showing evidence of acute Crohn's exacerbation. Patient given prednisone and hydrocodone while in the ED. Vital Signs Vital signs: Initial Vital Signs Temperature 98.8 F 06/11/22 16:54 Temperature Source Temporal Artery Scan 06/11/22 16:54 Pulse Rate 115 H 06/11/22 16:54 Blood Pressure 134/79 06/11/22 16:54 Blood Pressure Mean 97 06/11/22 16:54 Blood Pressure Position Sitting 06/11/22 16:54 Pulse Oximetry 134 H 06/11/22 16:54 Oxygen Delivery Method Room Air 06/11/22 16:54 Vital Signs Temperature 98.8 F 06/11/22 16:54 Pulse Rate 115 H 06/11/22 16:54 Blood Pressure 134/79 06/11/22 16:54 Pulse Oximetry 134 H 06/11/22 16:54 Oxygen Delivery Method Room Air 06/11/22 16:54 Temperature 98.8 F 06/11/22 16:54 Pulse Rate 115 H 05/07/23 16:54 Blood Pressure 134/79 05/07/23 16:54 Pulse Oximetry 134 H 06/11/22 16:54 Oxygen Delivery Method Room Air 06/11/22 16:54 Medical Decision Making MDM Narrative Medical decision making narrative: 52-year-old female with acute exacerbation of her Crohn's disease. We will put the patient on daily prednisone and p.r.n. Percocet. She will call her primary care provider 1st thing in the morning tomorrow to set a follow-up appointment in the next week. She will return to the ER if her symptoms are getting worse. Medical Records Medical records reviewed: Yes I reviewed the patient's medical records Lab Data Lab results reviewed: Yes I reviewed the patient's lab results Labs: Lab Results 06/11/22 06/11/22 Range/Units 17:29 18:48 WBC 12.19 H (4.50-11.00) K/uL RBC 4.75 (4.00-5.20) m/uL Hgb 14.1 (12.0-16.0) gm/dL Hct 43.0 (33.0-51.0) % MCV 91 (80-100) fL MCH 30 (26-34) pg MCHC 33 (32-36) gm/dL RDW Coeff of Mary Kate 12.6 (11.5-15.5) % Plt Count 303 (140-440) K/uL Neut % (Auto) 76.4 H (42.0-72.0) % Lymph % (Auto) 17.0 L (20-44) % Sharkey % (Auto) 5.2 (0.0-11.0) % Eos % (Auto) 0.8 (0.0-7.0) % Baso % (Auto) 0.2 (0.0-3.0) % Neut # (Auto) 9.30 H (1.7-7.0) K/uL Lymph # (Auto) 2.10 (0.90-2.90) K/uL Sharkey # (Auto) 0.60 (0.00-0.90) K/UL Eos # (Auto) 0.10 (0.00-0.50) K/uL Baso # (Auto) 0.00 (0.00-0.30) K/uL ESR 34 H (2-20) mm/hr Sodium 138 (135-149) mmol/L Potassium 3.0 L (3.6-5.1) mmol/L Chloride 101 (96-114) mmol/L Carbon Dioxide 29 (20-32) mmol/L BUN 20 (7-30) mg/dL Creatinine 0.7 (0.5-1.5) mg/dL Estimated Creat Clear 77.77 Estimated GFR 104 ml/min Glucose 132 H (60-115) mg/dL Lactate 0.8 (0.5-1.9) mmol/L Calcium 9.4 (8.4-10.6) mg/dL Total Bilirubin 0.5 (0.1-1.5) mg/dL Direct Bilirubin 0.2 (0.0-0.5) mg/dL AST 23 (12-35) U/L ALT 29 (4-35) U/L Alkaline Phosphatase 101 (40-150) U/L C-Reactive Protein 3.2 H (0.5-1.0) mg/dL Total Protein 7.7 (6.0-8.3) g/dL Albumin 4.5 (3.3-5.0) g/dL Lipase 86 (23-300) U/L TSH 0.943 (0.270-4.20) uIU/mL Urine Color Yellow (Yellow) Urine Appearance Clear (Clear) Urine pH 5.5 (5.0-8.5) Ur Specific [place] <= 1.005 (1.000-1.030) Urine Protein Negative (Negative) Urine Glucose (UA) Negative (Negative) Urine Ketones Negative (Negative) Urine Blood Trace-intact A (Negative) Urine Nitrite Negative (Negative) Urine Bilirubin Negative (Negative) Urine Urobilinogen 0.2 (0.2-1.0) Ur Leukocyte Esterase Negative (Negative) Urine RBC 0-2 (0-2) Urine WBC 0-2 (0-5) Ur Squamous Epith Cells Moderate A (None-Few) Urine Bacteria Few A (None) Imaging Data Chest x-ray: Attestation: I have reviewed the pertinent imaging results. Radiologist's impression: PA and lateral views of the chest Findings: There is mild interstitial prominence which may represent minimal pulmonary vascular congestion without dense consolidation, effusion or pneumothorax. The cardiomediastinal silhouette is within normal limits. The bony thorax is grossly intact. Impression: Mild interstitial prominence which may represent minimal pulmonary vascular congestion without dense consolidation. CT scan - abdomen: Attestation: I have reviewed the pertinent imaging results. Radiologist's impression: CT abdomen and pelvis acquired with 122 mL Isovue 370 IV contrast. COMPARISON: 02/24/[address] FINDINGS: Lower chest: Unremarkable. Liver: Unremarkable. Normal in size and attenuation. No masses. Gallbladder and bile ducts: Cholecystectomy. No biliary dilatation. Pancreas: Unremarkable. No mass or inflammation. Spleen: Unremarkable. Normal in size. No masses. Adrenal glands: Unremarkable. No nodules. Kidneys: Nonobstructing nephrolithiasis. No masses or hydronephrosis. GI tract: Mild diffuse colonic wall thickening. Wall thickening and hyperemia in the distal and terminal ileum. These findings are new and compatible with active Crohn`s disease. No obstruction. No abscess or sinus tract identified. Vasculature: Unremarkable. Mesenteric arteries are patent. Lymph nodes: No lymphadenopathy. Omentum/Peritoneum/Abdominal Wall: Ventral hernia repair. Residual recurrent small fat containing ventral hernia Pelvis: Hysterectomy. Bones: Intramuscular lipoma in the right gluteus IMPRESSION: Inflammation in the ileum and colon compatible with active Crohn`s disease. Discharge Plan Discharge Clinical Impression: Exacerbation of Crohn's disease, Acute hypokalemia Patient Disposition: Home, Self-Care Condition: Stable Instructions: Crohn Disease (ED) Additional Instructions: Take steroids as prescribed. You can take your 1st dose tomorrow as you received a dose in the ER today. Take pain medication as needed. Your potassium was low today, you will be sent home with an additional 2 days of potassium replacement. This can also be started tomorrow as you received a dose in the ER. Call your doctor 1st thing in the morning on Sunday to schedule a follow-up nellie ointment which should be done this coming week. We will decide with them the duration of your steroid therapy and any follow-up management. Return to the emergency room if your pain is getting worse or you develop a fever. Pain meds sent to [facility]. Activity Level: Activity as Tolerated Prescriptions: New prednisone 20 mg tablet 40 mg PO DAILY 10 Days Qty: 20 0RF potassium chloride 20 mEq tablet extended release 20 meq PO DAILY Qty: 2 0RF No Action albuterol sulfate 90 mcg/actuation HFA aerosol inhaler 2 inh inhalation Q4H PRN Patient Comments: INHALE 2 PUFFS BY MOUTH EVERY 4 HOURS NEEDED budesonide 3 mg capsule,delayed,extend.release 3 mg PO Q8H PRN aspirin 81 mg tablet,delayed release (DR/EC) 81 mg PO QDAY Fish Oil 100-160-1,000 mg capsule 1 cap PO DAILY Probiotic 3 billion cell capsule 3,000 mmu cells PO QDAY Rx Instructions: administer with a meal losartan-hydrochlorothiazide 50-12.5 mg tablet 1 tab PO QDAY Qty: 90 1RF infliximab [Remicade] 100 mg recon soln 100 mg IV PRN Rx Instructions: q16 weeks ascorbic acid (vitamin C) 500 mg tablet 500 mg PO DAILY cholecalciferol (vitamin D3) 25 mcg (1,000 unit) tablet 2,000 unit PO DAILY furosemide 20 mg tablet 20 mg PO QAM glimepiride 4 mg tablet 4 mg PO QDAY insulin glargine-yfgn [Semglee(insulin glarg-yfgn)Pen] 100 unit/mL (3 mL) insulin pen 20 unit SUBCUT QDAY Rx Instructions: Fill when needed omeprazole 20 mg capsule,delayed release(DR/EC) 20 mg PO BID Qty: 180 3RF Mounjaro 10 mg/0.5 mL pen injector 10 mg subcut QWEEK Qty: 2 2RF Follow Up/Referrals: Alen Snider MD [Primary Care Provider] - Stand Alone Forms: [facility] Info Instructions
[2022-06-11 17:55] LABS: Creatinine* 0.7 mg/dL (0.5-1.5); Est. Creatinine Clearance* 77.77; Estimated Glomerular Filt Rate 104 ml/min
[2022-06-11 17:56] LABS: Alanine Aminotransferase* 29 U/L (4-35); Alkaline Phosphatase* 101 U/L (40-150); Aspartate Amino Transferase* 23 U/L (12-35); Bilirubin Direct* 0.2 mg/dL (0.0-0.5); Bilirubin Total* 0.5 mg/dL (0.1-1.5); Blood Urea Nitrogen* 20 mg/dL (7-30); Carbon Dioxide* 29 mmol/L (20-32); Glucose* 132 mg/dL (60-115); Lipase* 86 U/L (23-300); Total Protein* 7.7 g/dL (6.0-8.3)
[2022-06-11 17:57] LABS: Calcium* 9.4 mg/dL (8.4-10.6)
[2022-06-11 17:59] LABS: C Reactive Protein* 3.2 mg/dL (0.5-1.0)
[2022-06-11 18:32] LABS: Erythrocyte SedimentationRate* 34 mm/hr (2-20)
[2022-06-11 18:44] LABS: Thyroid Stimulating Hormone* 0.943 uIU/mL (0.270-4.20)
[2022-06-11 18:55] LABS: Appearance Urine Clear (Clear); Bilirubin Urine Negative (Negative); Blood Urine Trace-intact (Negative); Color Urine Yellow (Yellow); Glucose Urine Negative (Negative); Ketones Urine Negative (Negative); Leukocyte Esterase Urine Negative (Negative); Nitrite Urine Negative (Negative); Protein Urine Negative (Negative); Specific Gravity Urine <= 1.005 (1.000-1.030); Urobilinogen Urine 0.2 (0.2-1.0); pH Urine 5.5 (5.0-8.5)
[2022-06-11 19:13] LABS: Bacteria Urine Few; RBC Urine 0-2 (0-2); Squamous Epithelial Cell Urine Moderate (None-Few); WBC Urine 0-2 (0-5)
[2022-06-11] MEDS: POTASSIUM CHLORIDE 10 MEQ CAPSULE ER 20 MEQ PO (19:28)
[2022-06-11] MEDS: HYDROCODONE-ACETAMIN 5-325 MG 1 TAB PO (19:57)
[2022-06-11] MEDS: predniSONE 10 MG TABLET 50 MG PO (19:57)
== END 2022-06-11 20:14 | disposition home or self-care (01) ==
PROVIDERS: Emergency Provider Family Medicine; PCP Family Medicine
DX: K50.90 Crohn's disease, unspecified, without complications (principal); E87.6 Hypokalemia
CPT/HCPCS: 36415; 71046; 74177; 80048; 80076; 81001; 83605; 83690; 84443; 85025; 85651; 86140; 87086; 99284; A9270; J7030; J7512; Q9967

== ENCOUNTER 2022-08-04 10:17 | Outpatient (CLI) | payer OTHER, SELFPAY ==
--- NOTE | 2022-08-04 10:30 | CRLHL7_ITS ---
For Patients: As a result of the Century Cures Act, medical imaging exams and procedure reports are released immediately into your electronic medical record. You may view this report before your referring provider. If you have questions, please contact your health care provider. Indication: Injury and pain Technique: Left foot 3 views. Comparison: None Findings: Bones: Alignment is normal. No fractures or bone lesions. Posterior and plantar calcaneal spurs. Joint spaces: Unremarkable. Soft tissues: Unremarkable. Impression: No sign of acute injury. Dictated by Alen Welch MD @ 08/04/2022 11:57:01 AM (Electronically Signed)
--- NOTE | 2022-08-04 10:30 | CRLHL7_ITS ---
For Patients: As a result of the Century Cures Act, medical imaging exams and procedure reports are released immediately into your electronic medical record. You may view this report before your referring provider. If you have questions, please contact your health care provider. Indication: Injury and pain Technique: Left ankle 3 views. Comparison: None Findings: Bones: Alignment is normal. No fractures or suspicious bone lesions. Plantar and posterior calcaneal spurs. Joint spaces: Unremarkable. Soft tissues: Unremarkable. Impression: No sign of acute injury. Dictated by Alen Welch MD @ 08/04/2022 11:56:10 AM (Electronically Signed)
== END 2022-08-04 10:18 | disposition home or self-care (01) ==
PROVIDERS: PCP Family Medicine; Visit Provider Family Medicine
DX: M25.572 Pain in left ankle and joints of left foot (principal); M79.672 Pain in left foot
CPT/HCPCS: 73610; 73630

== ENCOUNTER 2022-11-08 08:14 | Outpatient (CLI) | payer OTHER, SELFPAY | END 2022-11-08 08:15 | disposition home or self-care (01) | PROVIDERS: PCP Family Medicine; Visit Provider Family Medicine | DX: I10 Essential (primary) hypertension (principal); Z13.6 Encounter for screening for cardiovascular disorders | CPT/HCPCS: 80048; 80061 ==

== ENCOUNTER 2022-11-24 09:00 | Outpatient (CLI) | payer OTHER, SELFPAY ==
--- NOTE | 2022-11-24 09:15 | CRLHL7_ITS ---
For Patients: As a result of the Cures Act, medical imaging exams and procedure reports are released immediately into your electronic medical record. You may view this report before your referring provider. If you have questions, please contact your health care provider. BILATERAL SCREENING MAMMOGRAM WITH COMPUTER-AIDED DETECTION AND TOMOSYNTHESIS TECHNIQUE: CC and MLO views were obtained. These mammographic images have been obtained using full-field digital technique. These mammographic images were interpreted with the benefit of computer-aided detection. Breast tomosynthesis was used in this interpretation. COMPARISON FILM: 11/25/21, 11/15/20, 11/28/19. FINDINGS: There are scattered areas of fibroglandular density. IMPRESSION: There is no radiographic evidence for malignancy. ASSESSMENT: BI-RADS Category 1: Negative RECOMMENDATION: Routine screening mammogram in 1 year. A lay language report of this examination will be provided to the patient. EFRA GARCIA M.D. Diagnostic/Nuclear Medicine Radiologist [email or web address] Transcribed: 2:[address]/Dictated by: Efra Garcia MD @ 11/24/2022 10:52:00 AM (Electronically Signed)
== END 2022-11-24 09:01 | disposition home or self-care (01) ==
LOC: MAMMO 09:01
PROVIDERS: PCP Family Medicine; Visit Provider Family Medicine
DX: Z12.31 Encounter for screening mammogram for malignant neoplasm of breast (principal)
CPT/HCPCS: 77063; 77067

== ENCOUNTER 2023-02-12 14:45 | Outpatient (RCR) | payer OTHER, SELFPAY ==
--- NOTE | 2022-11-24 17:15 | PT.OPEX ---
PT [facility] Out[facility] Eval PT LD Outpatient Eval Start: 11/24/22 09:00 Freq: Status: Active Protocol: Document 11/24/22 09:00 AMS (Rec: 11/24/22 16:59 AMS [id number]) E-signed By Rachel Ugalde PT Physical Therapy Outpatient Evaluation Insurance Information Insurance Name [employer] Medical Diagnosis Mid back pain on left side Dorsalgia Treating Diagnosis Pain in thoracic spine Muscle weakness Pain in cervical spine Referring MD Alen Snider Subjective Subjective Pt notes 3-month history of mid back pain on the left side that sometimes radiates up into the left side of her neck . Pt states this pain started and has continued to worsen after three falls she has had in the last year. The first fall was in February when she felt numbness in her whole left leg, and it gave out, leading to a hard fall onto her left elbow and shoulder/ side. The second was in May, again falling hard onto her left side, while putting siding on the house and stepping awkwardly. The last fall was in August, when she fell onto her right side after stepping in a rabbit hole, twisting her ankle and again landing on her side. Her shoulder and ankle hurt for awhile, but now are not hurting anymore. She describes intermittent numbness in her whole left leg as well that is worse at night and more posterior/lateral. She describes the pain as being localized to left-sided mid- back and constant/sharp/ burning in nature. This will extend/radiate into the left- sided neck as well. Also endorses numbness/tingling into her left arm in the 4th and 5th digits, which will come on randomly or with longer bouts of typing at work . She has tried stretching, massage, chiropractor, and foam roller without long- lasting relief, although the foam roller helps temporarily. Heat is also helpful temporarily. Functional limitations/aggravating factors include sitting too long, walking longer periods, and standing. Her job requires periods of significant walking and standing. The pain is constantly at a 7 or 8/10 and does not seem to improve. Denies bowel or bladder changes, history of cancer, or work-related injury. Does report more intense symptoms with sneezing or coughing. She has also tried Advil/Tylenol, which hasn't helped. Overall, she reports the pain is getting worse with each fall. She does not worry about her balance. No imaging has been done for her back. PMH is signifcant for hypertension, diabetes, Crohn's, and arthritis. 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 Able to heel and toe walk. BALANCE Single leg stance: 10+ seconds bilaterally FUNCTIONAL MOBILITY Double leg squat: Wide stance, to 90 degrees CERVICAL ROM Full and pain-free LUMBAR ROM Flexion: Past knees, 100% Extension: 75%, more localized thoracic pain Right Sidebendin% Left Sidebendin% Right rotation: 100% Left rotation: 100% REPEATED MOVEMENTS: Lumbar flexion: No change in symptoms Lumbar extension: More localized thoracic pain, no peripheralization of symptoms THORACIC ROM Flexion: 100% Extension: Mildly limited, painful Right Sidebendin% Left Sidebendin% Right rotation: 100%, pain with overpressure Left rotation: 100%, pain with overpressure HIP ROM (R/L) Full and pain-free UE ROM: Grossly within normal limits, Infection Control Nurse strength grossly within normal limits LE MMT/Myotomes Hip flexion (L2): R 5/5 L 5/5 Hip Extension: R 5/5 L 5/5 Hip abduction: R 4/5 L 4/5 Knee extension (L3): R 5/5 L 5 /5 Knee Flexion: R 5/5 L 5/5 Dorsiflexion/heel walk (L4): R 5/5 L 5/5 Plantarflexion/toe walk (S1): Able to toe walk Great Toe Extension (L5): R 5/ 5 L 5/5 Abdominal Strength: TrA activation fair in hooklying DERMATOMES Altered light touch sensation to C8 dermatome on left JOINT MOBILITY/PALPATION Point tenderness to T7-T9 vertebrae, mild tenderness to T10-T11. Mildly increased tone to lumbar paraspinals B SPECIAL TESTS -Straight leg raise: + left for left lateral and posterior LE pain -Crossed straight leg raise: - -Slump test: + left Functional Test Performed & Score MARKUS: 21/50 = 42% Assessment Assessment/Impression Pt is a 52 -year-old female who presents with concerns of worsening, chronic left-sided thoracic pain and moderate to high severity and irritability as well as onset of left- sided upper and lower extremity neurological symptoms. These symptoms have started and worsened with three falls over the last year onto her left side. No imaging yet performed. On exam , patient also demonstrates notable objective findings including pain with thoracic and lumbar extension and with end-range overpressure into thoracic rotation, full and pain-free cervical exam, positive slump and straight leg raise on left, and point tenderness to T7-T9 vertebrae, leading to difficulties with walking, standing, sitting, lifting, and sleeping soundly. Due to multiple incidences of trauma/falls onto left side, onset of atypical neurological symptoms, point tenderness to thoracic spine, and constant, severe pain worse with weightbearing activities, I would recommend pt visit her primary care provider and obtain order for imaging to rule out fracture and potentially further neurological workup to rule out nerve compression. Once further workup has been undertaken, patient may be appropriate for skilled physical therapy services to address the above deficits. Pt was agreeable with plan of care and goals established. Primary Functional Limitations Walking, standing, lifting, sleeping, sitting Plan of Care Rehabilitation Potential Good Physical Therapy Goals In 2 sessions: Pt will demonstrate consistent HEP compliance to ensure progress in reaching established goals during course of care. In 8-10 sessions: Patient will report pain levels < 2/10 with all activity in order to improve functional mobility at home, work, and during functional leisure activities. Patient will wake 0-1 times per night due to pain for improved sleep quality. Patient will demonstrate pain- free thoracic range of motion for improved ability to perform ADLs without pain. Coordination/Communication With Referral Source Treatment Plan/Direct Interventions Joint Mobilization,Manual Therapy,Neuromuscular Re-ed, Self-Care/Home Management, Therapeutic Activities, Therapeutic Exercises Frequency/Duration 1x/week for 8-10 sessions Patient Will Be Discharged From Therapy Completion of LTG(s), Independent w/HEP, Independently Progressing Evaluation Billing Untimed Code Treatment Minutes 40 Complexity Moderate Certification Information Physician Comment/Change : Physician NPI Number #
== END 2023-06-12 23:59 | disposition home or self-care (01) ==
PROVIDERS: PCP Family Medicine; Visit Provider Family Medicine
DX: M54.9 Dorsalgia, unspecified (principal); Z51.89 Encounter for other specified aftercare
CPT/HCPCS: 97110; 97140; 97162

== ENCOUNTER 2023-02-18 09:49 | Emergency (ER) | payer OTHER, SELFPAY ==
[2023-02-18 10:09] VITALS: BP 149/67; PULSE 97; RESP 18; TEMP 36.3; O2SAT 97; BMI 23.8
--- NOTE | 2023-02-18 10:33 | ED.GENADULT ---
HPI - General Adult General Chief complaint: Unspecified Complaint, Adult Stated complaint: Influenza A Time Seen by Provider: 02/18/23 10:30 History of Present Illness HPI narrative: 52-year-old female coming in today concerned about influenza. Patient was diagnosed with influenza a 2 days ago and states that she feels terrible. She complains of aches from head to toe, weakness, extreme fatigue. Decreased appetite with little p.o. intake over the last 24 hours. She complains of headache, chest pain, abdominal pain. She does have history of Crohn's disease and has had increased diarrhea over the last 24 hours. No blood in her stool. Related Data Home Medications Medication Instructions Recorded Confirmed albuterol sulfate 90 mcg/actuation 2 inh inhalation Q4H PRN 12/02/21 02/16/23 aerosol inhaler aspirin 81 mg tablet,delayed 81 mg PO QDAY 12/02/21 02/16/23 release lactobacillus combination no.4 3 3,000 mmu cells PO QDAY 12/02/21 02/16/23 billion cell capsule (Probiotic) omega 8-mbs-mph-fish oil 100 1 cap PO DAILY 12/02/21 02/16/23 mg-160 mg-1,000 mg capsule (Fish Oil) ascorbic acid (vitamin C) 500 mg 500 mg PO DAILY 01/20/22 02/16/23 tablet cholecalciferol (vitamin D3) 25 2,000 unit PO DAILY 04/21/22 02/16/23 mcg (1,000 unit) tablet magnesium 250 mg tablet 500 mg PO QDAY 02/16/23 02/16/23 Previous Rx's Medication Instructions Recorded celecoxib 200 mg capsule (Celebrex) 200 mg PO BID #60 caps 02/16/23 furosemide 20 mg tablet 20 mg PO QAM #90 tabs 02/16/23 losartan 50 mg-hydrochlorothiazide 1 tab PO QDAY #90 tabs 02/16/23 12.5 mg tablet omeprazole 20 mg capsule,delayed 20 mg PO BID #180 caps 02/16/23 release tirzepatide 12.5 mg/0.5 mL 12.5 mg (0.5 mL) subcut QWEEK #6 mL 02/16/23 subcutaneous pen injector Allergies Allergy/AdvReac Type Severity Reaction Status Date / Time clavulanic acid Allergy Verified 02/16/23 10:19 morphine AdvReac Intermediate Vomiting Verified 02/16/23 10:19 Review of Systems Status of ROS: Reports: 10 or more systems reviewed and unremarkable except as noted in History and below [facility] Medical History (Updated 02/18/23 @ 11:41 by Brandi Fischer MD) Primary hypertension ?I10 - Essential (primary) hypertension (ICD-10) Type 2 diabetes mellitus, without long-term current use of insulin ?E11.9 - Type 2 diabetes mellitus without complications (ICD-10) Urinary urgency ?R39.15 - Urgency of urination (ICD-10) Plantar fasciitis ?M72.2 - Plantar fascial fibromatosis (ICD-10) Morbid obesity ?E66.01 - Morbid (severe) obesity due to excess calories (ICD-10) Migraine headache (02/28/12) ?G43.909 - Migraine, unspecified, not intractable, without status migrainosus (ICD-10) Low vitamin D level ?R79.89 - Other specified abnormal findings of blood chemistry (ICD-10) Intracranial hypertension ?G93.2 - Benign intracranial hypertension (ICD-10) Depression (02/28/12) ?F32.A - Depression, unspecified (ICD-10) Crohn's disease ?K50.90 - Crohn's disease, unspecified, without complications (ICD-10) Chronic gastroesophageal reflux disease ?K21.9 - Gastro-esophageal reflux disease without esophagitis (ICD-10) Abscess of [place]'s duct ?N34.0 - Urethral abscess (ICD-10) Surgical History Status post incision and drainage (03/18/21) ?Z98.890 - Other specified postprocedural states (ICD-10) History of unilateral oophorectomy (2009) ?Z90.721 - Acquired absence of ovaries, unilateral (ICD-10) History of left oophorectomy ?Z90.721 - Acquired absence of ovaries, unilateral (ICD-10) History of laparoscopic cholecystectomy (2012) ?Z90.49 - Acquired absence of other specified parts of digestive tract (ICD-10) History of incisional hernia repair (2012) ?Z98.890 - Other specified postprocedural states (ICD-10) ?Z87.19 - Personal history of other diseases of the digestive system (ICD-10) History of hysterectomy (2005) ?Z90.710 - Acquired absence of both cervix and uterus (ICD-10) History of 3 sections ?Z98.891 - History of uterine scar from previous surgery (ICD-10) Family History Uncle Colon cancer Aunt Breast cancer Maternal Grandmother Heart disease Stroke Maternal Grandfather Heart disease Father Heart disease Diabetes High blood pressure Basal cell carcinoma Obesity Kidney disease Mother Diabetes Obesity Daughter Anxiety Son ADHD Brother Obesity Social History (Updated 11/08/22 @ 08:20 by Carmel Machado ~ RMA, RMA) Narrative: walks 1mile 3x per week, , 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, 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, nonsmoker, rarely consumes alcohol What is your current living situation?: I presently have a place to live Problems where you live: no known problems In the past 12 months, utilities in danger of being shut off: no In past 12 months, lack of transportation kept you from medical appts, meetings, work, or getting things needed for daily living: no In the past 12 mos, have been you worried that your food would run out before you had money to buy more?: never true In the past 12 mos, the food you bought just didn't last and you didn't have money to buy more?: never true Smoking Status: Never smoker Do you use any of these nicotine containing products: None Second hand tobacco smoke exposure: No How often do you have a drink containing alcohol: never How often do you have six or more drinks on one occasion: Never AUDIT-C Alcohol total score: 0 Non-prescribed substance use: denies use How often does anyone, including family, friends and others, physically hurt you: decline to answer How often does anyone, including family, friends and others, insult or talk down to you: decline to answer How often does anyone, including family, friends and others, threaten you with harm: decline to answer How often does anyone, including family, friends and others, scream or curse at you: decline to answer Little interest or pleasure in doing things: several days Feeling down, depressed, or hopeless: several days service: No Exam Narrative: Exam Narrative: Well-nourished well-developed patient, very tearful. Alert and oriented. Answers questions appropriately. Patient speaks in full sentences without needing to catch her breath. HEENT: Normocephalic atraumatic. Pupils are equally round reactive to light. Extraocular muscles are intact. Conjunctivae are moist without any icterus noted. Moist mucous membranes. Posterior pharynx is normal. Neck is soft without any lymphadenopathy or thyromegaly. No masses are appreciated. Cardiovascular: Heart is regular rate and rhythm S1 and S2 are present without any murmurs. Lungs: Clear to auscultation bilaterally no wheezes rhonchi or rales are appreciated. Patient takes deep breaths without any discomfort. Abdomen: Soft and nontender nondistended with normal bowel sounds. No guarding or rebound. Extremities: Bilateral lower extremities are without edema. Skin: Well perfused without any obvious rashes. Const: Vital Signs, click to edit/add: Vital Signs - 24 hr 02/18/23 10:09 02/18/23 11:25 02/18/23 11:25 Temperature 97.3 F L 97.3 F L Pulse Rate [Pulse Oximeter] 97 88 Respiratory Rate 18 18 Respiratory Rate [ Generalized] 16 Blood Pressure [Le ft Upper Arm] 149/67 H 134/84 Pulse Oximetry 97 97 Oxygen Delivery Me thod Room Air Room Air 02/18/23 11:30 02/18/23 12:02 Temperature 97.6 F Pulse Rate [Pulse Oximeter] 86 90 Respiratory Rate 16 16 Respiratory Rate [ Generalized] Blood Pressure [Le ft Upper Arm] 139/82 127/78 Pulse Oximetry 95 97 Oxygen Delivery Me thod Room Air Room Air Course Course ED Course: IV is established and patient received a L of normal saline and IV Toradol. Vital Signs Vital signs: Initial Vital Signs Temperature 97.3 F L 02/18/23 10:09 Temperature Source Temporal Artery Scan 02/18/23 10:09 Pulse Rate 97 02/18/23 10:09 Respiratory Rate 18 02/18/23 10:09 Blood Pressure 149/67 H 02/18/23 10:09 Blood Pressure Mean 94 02/18/23 10:09 Pulse Oximetry 97 02/18/23 10:09 Oxygen Delivery Method Room Air 02/18/23 10:09 Vital Signs Temperature 97.3 F L 02/18/23 10:09 Pulse Rate 97 02/18/23 10:09 Respiratory Rate 18 02/18/23 10:09 Blood Pressure 149/67 H 02/18/23 10:09 Pulse Oximetry 97 02/18/23 10:09 Oxygen Delivery Method Room Air 02/18/23 10:09 Temperature 97.6 F 02/18/23 12:02 Pulse Rate 90 02/18/23 12:02 Respiratory Rate 16 02/18/23 12:02 Blood Pressure 127/78 02/18/23 12:02 Pulse Oximetry 97 02/18/23 12:02 Oxygen Delivery Method Room Air 02/18/23 12:02 Medications Administered Medications: Discontinued Medications Generic Name Dose Route Start Last Admin Trade Name Freq PRN Reason Stop Dose Admin Sodium Chloride 1,000 mls @ 1,000 mls/hr 02/18/23 10:30 02/18/23 11:26 0.9 % Sodium Chloride 1000 Ml IV 02/18/23 11:29 1,000 mls/hr .Q1H JULIETH Administration Ketorolac Tromethamine 30 mg 02/18/23 10:30 02/18/23 11:24 Ketorolac 30 Mg/Ml Inj IVP 02/18/23 10:31 30 mg ONCE ONE Administration Medical Decision Making MDM Narrative Medical decision making narrative: 52-year-old female with influenza. We discussed symptomatic treatment reasons for follow-up. Patient did not wish to have any treatment for Crohn's at this time. Discharge Plan Discharge Clinical Impression: Influenza Patient Disposition: Home, Self-Care Condition: Stable Additional Instructions: Expect to feel ill for several more days in slowly get better. Do your best to stay well hydrated by drinking small amounts of fluid very frequently throughout the day. Prescriptions: No Action albuterol sulfate 90 mcg/actuation HFA aerosol inhaler 2 inh inhalation Q4H PRN Patient Comments: INHALE 2 PUFFS BY MOUTH EVERY 4 HOURS NEEDED aspirin 81 mg tablet,delayed release (DR/EC) 81 mg PO QDAY Fish Oil 100-160-1,000 mg capsule 1 cap PO DAILY Probiotic 3 billion cell capsule 3,000 mmu cells PO QDAY Rx Instructions: administer with a meal magnesium 250 mg tablet 500 mg PO QDAY tirzepatide 12.5 mg/0.5 mL pen injector 12.5 mg subcut QWEEK Qty: 6 1RF losartan-hydrochlorothiazide 50-12.5 mg tablet 1 tab PO QDAY Qty: 90 3RF furosemide 20 mg tablet 20 mg PO QAM Qty: 90 1RF omeprazole 20 mg capsule,delayed release(DR/EC) 20 mg PO BID Qty: 180 3RF celecoxib [Celebrex] 200 mg capsule 200 mg PO BID Qty: 60 0RF ascorbic acid (vitamin C) 500 mg tablet 500 mg PO DAILY cholecalciferol (vitamin D3) 25 mcg (1,000 unit) tablet 2,000 unit PO DAILY Follow Up/Referrals: Alen Snider MD [Primary Care Provider] - [facility] Info Inst[facility]
--- OUTSIDE RECORDS SUMMARY | 2023-02-18 10:45 | XMS_ITS | Clinical Summary ---
Author Name Unknown Organization [facility] Address [place], [place] [address] Care Team Providers Care Production Pattern Maker Name Role Phone Pcp, No Primary Care Provider Unavailabl e Allergies Active Allergy Reactions Criticality Noted Date Comments Amoxicillin-Pot Clavulanate Vomiting 12/17/19 14 Morphine Rash 12/16/2013 Social History Tobacco Use Types Packs/Day Years Used Date Smoking Tobacco: Never Alcohol Use Standard Drinks/Week Comments Not Asked 0 (1 standard drink = 0.6 oz pur e alcohol) Sex and Gender Information Value Date Recorded Sex Assigned at Not on file Gender Identity Not on file Sexual Orientation Not on file Obstetrics History Last Filed Vital Signs Vital Sign Reading Time Taken Comments Blood Pressure 117/83 12/31/2013 1:53 PM COSMETOLOGY PROFESSOR Pulse 92 12/31/2013 1:53 PM COSMETOLOGY PROFESSOR Temperature - - Respiratory Rate - - [...] age 18+ 1988 Hepatitis C screening for ag e 18-79 1988 Tetanus booster 1990 Pap test for age 21-65 06/10/1991 Colonoscopy through age 75 06/10/2015 Lipids for age 45-75 06/10/2015 Mammogram for age 45-75 08/15/2015 08/14/2014 Zoster (shingles) series for age 50+ (1 of 2) 2020 Influenza for age 50-64 10/06/2022 Pneumococcal series for age 6-64 Aged Out No longer eligible based on patient's age to complete this topic Care Teams Production Pattern Maker Relationship Specialty Start Date End Date Pcp, No . PCP - General 12/15/13
--- OUTSIDE RECORDS SUMMARY | 2023-02-18 10:45 | XMS_ITS | Clinical Summary ---
Author Name Unknown Organization [place] Address [facility] [place] [address] Care Team Providers Care Business Support Coordinator Name Role Phone Unavailable Primary Care Provider Unavailabl e Allergies Active Allergy Reactions Criticality Noted Date Comments Clavulanic Acid 05/02/2017 Morphine 05/02/2017 Medications Medication Sig Dispensed Refills Start Date End Date Status OMEPRAZOLE PO 0 Active RaNITidine HCl (ZANTAC PO) 0 Active Immunizations Name Administration Dates Next Due Influenza Vaccine >6 months,quad, PF 11/22/2016, 11/08/2015 Family History Medical History Relation Comments Diabetes [...] Smoking Tobacco: Never Smokeless Tobacco: Never Sex and Gender Information Value Date Recorded Sex Assigned at Not on file Gender Identity Not on file Sexual Orientation Not on file Last Filed Vital Signs Vital Sign Reading Time Taken Comments Blood Pressure 155/89 05/02/2017 1:01 PM CDT Pulse 89 05/02/2017 1:01 PM CDT Temperature - - Respiratory Rate - - Oxygen Saturation - - Inhaled Oxygen Concentration - - Weight 111.1 kg (245 lb) 05/02/2017 1:01 PM CDT pt reported Height 162.6 cm (5' 4) 05/02/2017 1:01 PM CDT p t reported Body Mass Index 42.05 05/02/2017 1:01 PM CDT Plan of Treatment Not on file
--- OUTSIDE RECORDS SUMMARY | 2023-02-18 10:46 | XMS_ITS | Referral Summary ---
Author Name Unknown Organization [place] Address [facility] [address] Care Team Providers Care Prototype Machinist Name Role Phone Unavailable Primary Care Provider Unavailabl e Allergies Active Allergy Reactions Criticality Noted Date Comments Clavulanic Acid 05/02/2017 Morphine 05/02/2017 Medications Medication Sig Dispensed Refills Start Date End Date Status OMEPRAZOLE PO 0 Active RaNITidine HCl (ZANTAC PO) 0 Active Immunizations Name Administration Dates Next Due Influenza Vaccine >6 months,lauren, PF 11/22/2016, 11/08/2015 Social History Tobacco Use Types Packs/Day Years [...]
[2023-02-18] MEDS: KETOROLAC 30 MG/ML inj IVP (11:24)
[2023-02-18 11:25] VITALS: BP 134/84; PULSE 88; RESP 16; RESP 18; TEMP 36.3; O2SAT 97
[2023-02-18] MEDS: 0.9 % SODIUM CHLORIDE 1000 ml 1,000 ML IV (11:26)
[2023-02-18 11:30] VITALS: BP 139/82; PULSE 86; RESP 16; O2SAT 95
[2023-02-18 12:02] VITALS: BP 127/78; PULSE 90; RESP 16; TEMP 36.4; O2SAT 97
[2023-02-18 13:03] VITALS: BP 118/76; PULSE 85; RESP 18; TEMP 37.5
== END 2023-02-18 13:05 | disposition home or self-care (01) ==
PROVIDERS: Emergency Provider Family Medicine; PCP Family Medicine
DX: J10.1 Influenza due to other identified influenza virus with other respiratory manifestations (principal)
CPT/HCPCS: 96374; 99283; 99284; J1885; J7030

== ENCOUNTER 2023-10-24 12:31 | Outpatient (CLI) | payer OTHER, SELFPAY ==
--- OUTSIDE RECORDS SUMMARY | 2023-10-24 12:35 | XMS_ITS | Clinical Summary ---
Author Organization [facility] Address [place], [place] [address] Care Team Providers Care Mill Set Up Name Role Phone Pcp, No Primary Care [...] Comments Blood Pressure 117/83 12/31/2013 1:53 PM PRODUCTION ASSOCIATE Pulse 92 12/31/2013 1:53 PM PRODUCTION ASSOCIATE Temperature - - Respiratory Rate - - Oxygen Saturation - - Inhaled Oxygen Concentration - - Weight - - Height - - Body Mass Index - - Plan of Treatment Health Maintenance Due Date Last Done Comments Tdap 1981 Depression screening for age 12+ [...] for age 50+ (1 of 2) 2020 COVID-19 vaccine series (1 - 2023-24 season) 2023 Influenza for age 50-64 10/07/2023 Pneumococcal series for age 6-64 Aged Out No longer eligible based on patient's age to complete this topic Procedures Procedure Name Priority Date/Time Associated Diagnosis Comments SCAN-MAMMOGRAPHY REPORT 08/14/2014 12:00 AM CDT from Last 3 Months or Most Recently Relevant to Health Maintenance Results * SCAN-MAMMOGRAPHY REPORT (08/14/2014 12:00 AM CDT) Anatomical Region Laterality Modality Other Scanner OTHER from Last 3 Months or Most Recently Relevant to Health Maintenance Care Teams Mill Set Up Relationship Specialty Start Date End Date Pcp, No . PCP - General 12/15/13
--- OUTSIDE RECORDS SUMMARY | 2023-10-24 12:35 | XMS_ITS | Referral Summary ---
Author Organization [facility] [facility] Address [address] [place] [address]. [place] [address] Care Team Providers Care Sales Training Representative Name Role Phone Unavailable Primary Care Provider Unavailabl e Allergies Active Allergy Reactions Criticality Noted Date Comments Clavulanic Acid 05/02/2017 Morphine 05/02/2017 Medications Medication Sig Dispensed Refills Start Date End Date Status OMEPRAZOLE PO Active RaNITidine HCl (ZANTAC PO) Active Immunizations Name Administration Dates Next Due [...]
--- OUTSIDE RECORDS SUMMARY | 2023-10-24 12:35 | XMS_ITS | Clinical Summary ---
Author Organization [facility] Address [address] [place] [address]. [place] [address] Care Team Providers Care Quality Control Tech Name Role Phone Unavailable Primary Care Provider [...]
== END 2023-10-24 12:32 | disposition home or self-care (01) ==
PROVIDERS: PCP Family Medicine; Visit Provider Family Medicine
DX: I10 Essential (primary) hypertension (principal); Z13.220 Encounter for screening for lipoid disorders
CPT/HCPCS: 80048; 80061; 85025

== ENCOUNTER 2023-11-23 10:18 | Outpatient (CLI) | payer OTHER, SELFPAY ==
--- NOTE | 2023-11-23 10:15 | CRLHL7_ITS ---
For Patients: As a result of the Century Cures Act, medical imaging exams and procedure reports are released immediately into your electronic medical record. You may view this report before your referring provider. If you have questions, please contact your health care provider. BILATERAL SCREENING MAMMOGRAM WITH COMPUTER-AIDED DETECTION AND TOMOSYNTHESIS TECHNIQUE: CC and MLO views were obtained. These mammographic images have been obtained using full-field digital technique. These mammographic images were interpreted with the benefit of computer-aided detection. Breast Tomosynthesis was used in this interpretation. COMPARISON FILM: 11/24/22, 11/25/21, 11/15/20. FINDINGS: There are scattered areas of fibroglandular density. IMPRESSION: There is no radiographic evidence for malignancy. ASSESSMENT: BI-RADS Category 1: Negative RECOMMENDATION: Routine screening mammogram in 1 year. A lay language report of this examination will be provided to the patient. Alen Welch M.D. Diagnostic Radiologist [email or web address] SP/Dictated by: Alen Welch MD @ 11/27/2023 12:58:00 PM (Electronically Signed)
--- OUTSIDE RECORDS SUMMARY | 2023-11-23 10:20 | XMS_ITS | Clinical Summary ---
Author Organization [facility] Address [address] [place] [address]. [place] [address] Care Team Providers Care Farm Loan Representative Name Role Phone Unavailable Primary Care [...]
--- OUTSIDE RECORDS SUMMARY | 2023-11-23 10:20 | XMS_ITS | Clinical Summary ---
Author Organization [facility] Address [place], [place] [address] Care Team Providers Care Edge Polisher Name Role Phone Pcp, No Primary Care [...] Comments Blood Pressure 117/83 12/31/2013 1:53 PM COMPUTER FORENSIC EXAMINER Pulse 92 12/31/2013 1:53 PM COMPUTER FORENSIC EXAMINER Temperature - - Respiratory Rate - - [...] 2) 2020 COVID-19 vaccine series (1 - 2024- season) 2023 Influenza for age 50-64 10/07/2023 [...] Recently Relevant to Health Maintenance Care Teams Edge Polisher Relationship Specialty Start Date End Date Pcp, No . PCP - General 12/15/13
--- OUTSIDE RECORDS SUMMARY | 2023-11-23 10:20 | XMS_ITS | Referral Summary ---
Author Organization [place] Address [address] [place] [address]. [place] [address] Care Team Providers Care Terminal Computer Operator Name Role Phone Unavailable Primary Care Provider [...]
== END 2023-11-23 10:19 | disposition home or self-care (01) ==
LOC: MAMMO 10:18
PROVIDERS: PCP Family Medicine; Visit Provider Family Medicine
DX: Z12.31 Encounter for screening mammogram for malignant neoplasm of breast (principal)
CPT/HCPCS: 77063; 77067

== ENCOUNTER 2024-03-19 20:48 | Emergency (ER) | payer OTHER, SELFPAY ==
[2024-03-19] VITALS (11 sets, daily range): BP systolic 102–127; BP diastolic 61–89; PULSE 70–85; RESP 9–17; TEMP 37.1; O2SAT 95–100; BMI 34.3
--- OUTSIDE RECORDS SUMMARY | 2024-03-19 21:01 | XMS_ITS | Clinical Summary ---
Author Organization [facility] Address [address] [place] [address]. [place] [address] Care Team Providers Care Armhole Sewer Name Role Phone Unavailable Primary Care Provider Unavailabl e Allergies Active Allergy Reactions Criticality Noted Date Comments Clavulanic Acid 05/02/2017 Morphine 05/02/2017 Medications OMEPRAZOLE PO Active RaNITidine HCl (ZANTAC PO) [...] Date Smoking Tobacco: Never Smokeless Tobacco: Never Comments Unknown Sex and Gender Information Value Date Recorded Sex Assigned at Not on file Legal Sex Female 11:38 AM CDT Gender Identity Not on file Sexual Orientation [...]
--- OUTSIDE RECORDS SUMMARY | 2024-03-19 21:38 | XMS_ITS | Clinical Summary ---
Author Organization [facility] Address [place], [place] [address] Care Team Providers Care Street Openings Inspector Name Role Phone Pcp, No Primary Care Provider Unavailabl e Allergies Active Allergy Reactions Criticality Noted Date Comments Amoxicillin-Pot Clavulanate Vomiting 12/17/19 14 Morphine Rash 12/16/2013 Social History Tobacco Use Types Packs/Day Years Used Date Smoking Tobacco: Never Alcohol Use Standard Drinks/Week Comments Not Asked 0 (1 standard drink = 0.6 oz pur e alcohol) Comments Unknown Sex and Gender Information Value Date Recorded Sex Assigned at Not on file Legal Sex Female 5:25 AM INSPECTOR AIDE Gender Identity Not on file Sexual Orientation Not on file Obstetrics History Last Filed Vital Signs Vital Sign Reading Time Taken Comments Blood Pressure 117/83 12/31/2013 1:53 PM INSPECTOR AIDE Pulse 92 12/31/2013 1:53 PM INSPECTOR AIDE Temperature - - Respiratory Rate - - [...] 06/10/2015 Mammogram for age 45-75 08/15/2015 08/14/2014 Pneumococcal series for age 50+ (1 of 1 - PCV) 2020 Zoster (shingles) series for age 50+ (1 of 2) 2020 COVID-19 vaccine series ( - 2023- season) 2023 Influenza for age 50-64 10/07/2023 Pneumococcal series for age 6-49 Aged Out No longer eligible based on patient's age to complete this topic Procedures Procedure Name Priority Date/Time Associated Diagnosis Comments SCAN-MAMMOGRAPHY REPORT 08/14/2014 12:00 AM CDT from Last 3 Months or Most Recently Relevant to Health Maintenance Results * SCAN-MAMMOGRAPHY REPORT (08/14/2014 12:00 AM CDT) Anatomical Region Laterality Modality Other us Scanner OTHER Final Result from Last 3 Months or Most Recently Relevant to Health Maintenance Care Teams Street Openings Inspector Relationship Specialty Start Date End Date Pcp, No . PCP - General 12/15/13
--- OUTSIDE RECORDS SUMMARY | 2024-03-19 21:38 | XMS_ITS | Clinical Summary ---
Author Organization [facility] Address [address] [place] [address]. [place] [address] Care Team Providers Care Conference Translator Name Role Phone Unavailable Primary Care Provider [...]
--- NOTE | 2024-03-19 21:50 | ED.CHESTPAIN ---
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 She never did develop the rash, but then developed this left-sided chest pain, she does not have a history of any heart issues, no personal history of atherosclerotic heart disease, family history of possible atherosclerotic heart disease in her father who at age 75. She herself has a history of diabetes hypertension, no history of PEs DVTs, denies any leg swelling, no history of significant coughing fevers chills, exertional discomfort, patient took aspirin at home. MD complaint: chest pain Onset (ago): hour(s) Timing of current episode: episodic Prior episodes: Yes Onset: during rest Pain location: substernal and left chest Pain radiation: jaw/teeth Severity: moderate Quality: tightness, aching and sharp Relieving factors: nothing Exacerbating factors: nothing Risk Factors Coronary artery disease risk factors: diabetes and hypertension Thoracic aortic dissection risk factors: none Related Data On Oral Contraceptives: No Home Medications ?Medication ?Instructions ?Recorded ?Confirmed albuterol sulfate 90 mcg/actuation 2 inh inhalation Q4H PRN 12/02/21 02/20/24 aerosol inhaler aspirin 81 mg tablet,delayed 81 mg PO QDAY 12/02/21 02/20/24 release lactobacillus combination no.4 3 3,000 mmu cells PO QDAY 12/02/21 02/20/24 billion cell capsule (Probiotic) omega 4-mnl-uim-fish oil 100 1 cap PO DAILY 12/02/21 02/20/24 mg-160 mg-1,000 mg capsule (Fish Oil) ascorbic acid (vitamin C) 500 mg 500 mg PO DAILY 01/20/22 02/20/24 tablet cholecalciferol (vitamin D3) 25 2,000 unit PO DAILY 04/21/22 02/20/24 mcg (1,000 unit) tablet magnesium 250 mg tablet 500 mg PO QDAY 02/16/23 02/20/24 Previous Rx's ?Medication ?Instructions ?Recorded omeprazole 20 mg capsule,delayed 20 mg PO BID #180 caps 02/16/23 release losartan 50 mg-hydrochlorothiazide 1 tab PO QDAY #90 tabs 10/24/23 12.5 mg tablet nabumetone 750 mg tablet 750 mg PO BID #60 tabs 10/24/23 tirzepatide 15 mg/0.5 mL 15 mg (0.5 mL) subcut QWEEK #2 mL 10/24/23 subcutaneous pen injector furosemide 20 mg tablet 20 mg PO QAM #90 tabs 01/16/24 Allergies Allergy/AdvReac Type Severity Reaction Status Date / Time clavulanic acid Allergy Verified 02/20/24 18:35 morphine AdvReac Intermediate Vomiting Verified 02/20/24 18:35 Review of Systems Status of ROS Reports: 10 or more systems reviewed and unremarkable except as noted in History and below [facility] Medical History Primary hypertension ?I10 - Essential (primary) hypertension (ICD-10) Type 2 diabetes mellitus, without long-term current use of insulin ?E11.9 - Type 2 diabetes mellitus without complications (ICD-10) Urinary urgency ?R39.15 - Urgency of urination (ICD-10) Plantar fasciitis ?M72.2 - Plantar fascial fibromatosis (ICD-10) Morbid obesity ?E66.01 - Morbid (severe) obesity due to excess calories (ICD-10) Migraine headache (02/28/12) ?G43.909 - Migraine, unspecified, not intractable, without status migrainosus (ICD-10) Low vitamin D level ?R79.89 - Other specified abnormal findings of blood chemistry (ICD-10) Intracranial hypertension ?G93.2 - Benign intracranial hypertension (ICD-10) Depression (02/28/12) ?F32.A - Depression, unspecified (ICD-10) Crohn's disease ?K50.90 - Crohn's disease, unspecified, without complications (ICD-10) Chronic gastroesophageal reflux disease ?K21.9 - Gastro-esophageal reflux disease without esophagitis (ICD-10) Abscess of Temperance's duct ?N34.0 - Urethral abscess (ICD-10) Surgical History Status post incision and drainage (03/18/21) ?Z98.890 - Other specified postprocedural states (ICD-10) History of unilateral oophorectomy (2009) ?Z90.721 - Acquired absence of ovaries, unilateral (ICD-10) History of left oophorectomy ?Z90.721 - Acquired absence of ovaries, unilateral (ICD-10) History of laparoscopic cholecystectomy (2012) ?Z90.49 - Acquired absence of other specified parts of digestive tract (ICD-10) History of incisional hernia repair (2012) ?Z98.890 - Other specified postprocedural states (ICD-10) ?Z87.19 - Personal history of other diseases of the digestive system (ICD-10) History of hysterectomy (2005) ?Z90.710 - Acquired absence of both cervix and uterus (ICD-10) History of 3 sections ?Z98.891 - History of uterine scar from previous surgery (ICD-10) Family History Uncle Colon cancer Aunt Breast cancer Maternal Grandmother Heart disease Stroke Maternal Grandfather Heart disease Father Heart disease Diabetes High blood pressure Basal cell carcinoma Obesity Kidney disease Mother Diabetes Obesity Daughter Anxiety Son ADHD Brother Obesity Social History Narrative: walks 1mile 3x per week, , 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, 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, nonsmoker, rarely consumes alcohol What is your current living situation?: I presently have a place to live Problems where you live: no known problems In the past 12 months, utilities in danger of being shut off: no In past 12 months, lack of transportation kept you from medical appts, meetings, work, or getting things needed for daily living: no In the past 12 mos, have been you worried that your food would run out before you had money to buy more?: never true In the past 12 mos, the food you bought just didn't last and you didn't have money to buy more?: never true Smoking Status: Never smoker Do you use any of these nicotine containing products: None Second hand tobacco smoke exposure: No How often do you have a drink containing alcohol: never How often do you have six or more drinks on one occasion: Never AUDIT-C Alcohol total score: 0 Non-prescribed substance use: denies use How often does anyone, including family, friends and others, physically hurt you: decline to answer How often does anyone, including family, friends and others, insult or talk down to you: decline to answer How often does anyone, including family, friends and others, threaten you with harm: decline to answer How often does anyone, including family, friends and others, scream or curse at you: decline to answer service: No Exam Narrative Exam Narrative: On examination no distress, speaking to me normally, pupils equal round reactive to light there is no scleral icterus redness or TMs are normal oropharynx is normal, chest is good air entry bilaterally no wheezing crackles noted heart sounds are normal, there is no palpable pain, her abdomen is soft and obese there is no guarding no organomegaly bowel sounds are normal moves all extremities independently well no edema, negative Homans signs Const Vital Signs, click to edit/add: Vital Signs - 24 hr 03/19/24 20:59 03/19/24 21:10 03/19/24 21:15 Temperature 98.7 F Pulse Rate 83 78 Pulse Rate [Pulse Oximeter] 85 Respiratory Rate 16 12 12 Blood Pressure Blood Pressure [Right Upper Arm] 127/89 Pulse Oximetry 98 97 96 Oxygen Delivery Method Room Air 03/19/24 21:30 03/19/24 21:45 03/19/24 22:00 Temperature Pulse Rate 77 82 76 Pulse Rate [Pulse Oximeter] Respiratory Rate 17 9 L Blood Pressure Blood Pressure [Right Upper Arm] Pulse Oximetry 95 99 100 Oxygen Delivery Method 03/19/24 22:15 03/19/24 22:30 03/19/24 22:45 Temperature Pulse Rate 79 80 70 Pulse Rate [Pulse Oximeter] Respiratory Rate 15 10 L 13 Blood Pressure Blood Pressure [Right Upper Arm] Pulse Oximetry 98 99 96 Oxygen Delivery Method 03/19/24 22:59 03/19/24 23:00 Temperature Pulse Rate 76 82 Pulse Rate [Pulse Oximeter] Respiratory Rate 14 15 Blood Pressure 102/61 Blood Pressure [Right Upper Arm] Pulse Oximetry 98 97 Oxygen Delivery Method Documenting provider has reviewed patient's vital signs: yes Course Course ED Course: Chest CT is negative, I reviewed her laboratory works a negative troponins, I do think this may be related to some reflux or possible musculoskeletal, I do not think this is related to her heart, even though the D-dimer was positive she has that history of inflammatory bowel disease was likely is driving up, reassurance is given, follow-up with primary care as needed. Vital Signs Vital signs: Initial Vital Signs Temperature 98.7 F 03/19/24 20:59 Temperature Source Temporal Artery Scan 03/19/24 20:59 Pulse Rate 85 03/19/24 20:59 Respiratory Rate 16 03/19/24 20:59 Blood Pressure 127/89 03/19/24 20:59 Blood Pressure Mean 101 03/19/24 20:59 Blood Pressure Position Sitting 03/19/24 20:59 Pulse Oximetry 98 03/19/24 20:59 Oxygen Delivery Method Room Air 03/19/24 20:59 Vital Signs Temperature 98.7 F 03/19/24 20:59 Pulse Rate 85 03/19/24 20:59 Respiratory Rate 16 03/19/24 20:59 Blood Pressure 127/89 03/19/24 20:59 Pulse Oximetry 98 03/19/24 20:59 Oxygen Delivery Method Room Air 03/19/24 20:59 Temperature 98.7 F 03/19/24 20:59 Pulse Rate 82 03/19/24 23:00 Respiratory Rate 15 03/19/24 23:00 Blood Pressure 102/61 03/19/24 22:59 Pulse Oximetry 97 03/19/24 23:00 Oxygen Delivery Method Room Air 03/19/24 20:59 Medications Administered Medications: Discontinued Medications Generic Name Dose Route Start Last Admin Trade Name Freq PRN Reason Stop Dose Admin Sodium Chloride 1,000 mls @ 1,000 mls/hr 03/19/24 21:30 03/19/24 23:00 0.9 % Sodium Chloride 1000 Ml IV 03/19/24 22:29 Infused .Q1H JULIETH Infusion MDM - Chest Pain MDM Narrative Medical decision making narrative: During the evaluation of this patient I considered multiple differential diagnosis is. The life-threatening differential diagnosis include coronary disease/SD, pulmonary embolism, pneumothorax, pneumonia, and aortic dissection. Other differential diagnosis included but were not limited to pericarditis, myocarditis, chest wall pain, GERD, esophageal rupture, rib fracture contusion, pleurisy, as well as other etiologies. Medical Records Data Attestation: I reviewed the patient's medical records. Lab Data Attestation: I reviewed the patient's lab results. Labs: Lab Results 03/19/24 03/19/24 03/19/24 Range/Units 21:30 21:40 23:36 WBC 9.36 (4.50-11.00) K/uL RBC 3.99 L (4.00-5.20) m/uL Hgb 12.5 (12.0-16.0) gm/dL Hct 37.8 (33.0-51.0) % MCV 95 (80-100) fL MCH 31 (26-34) pg MCHC 33 (32-36) gm/dL RDW Coeff of Mary Kate 12.2 (11.5-15.5) % Plt Count 260 (140-440) K/uL Neut % (Auto) 58.8 (42.0-72.0) % Lymph % (Auto) 33.4 (20-44) % Phillips % (Auto) 6.0 (0.0-11.0) % Eos % (Auto) 1.0 (0.0-7.0) % Baso % (Auto) 0.4 (0.0-3.0) % Neut # (Auto) 5.50 (1.7-7.0) K/uL Lymph # (Auto) 3.13 H (0.90-2.90) K/uL Phillips # (Auto) 0.60 (0.00-0.90) K/UL Eos # (Auto) 0.09 (0.00-0.50) K/uL Baso # (Auto) 0.04 (0.00-0.30) K/uL Abs Immat Gran (auto) 0.04 (0.00-0.30) K/uL Imm/Tot Granulo (auto) 0.4 % INR 0.90 L (0.91-1.10) APTT 26 (23-33) Seconds D-Dimer Quant (PE/DVT) 0.71 H (0.00-0.50) ug/ml Sodium 138 (135-149) mmol/L Potassium 4.0 (3.6-5.1) mmol/L Chloride 103 (96-114) mmol/L Carbon Dioxide 29 (20-32) mmol/L Anion Gap 6 L (7-15) mEq/L BUN 16 (7-30) mg/dL Creatinine 0.6 (0.5-1.5) mg/dL Estimated Creat Clear 93.64 Estimated GFR 107 ml/min Glucose 120 H (60-115) mg/dL Calcium 9.0 (8.4-10.6) mg/dL NT-Pro-B Natriuret Pep 31 pg/mL POC Troponin I 0.00 L 0.00 L (0.01-0.04) ng/ml Imaging Data Chest x-ray: Attestation: I have reviewed the pertinent imaging results. Radiologist's impression: [place] [id number] Diagnostic Imaging Report Patient: Cordell Mota MR#: [id number] : 1970 Acct:[id number] Loc: ED Service Date: 03/19/[address]: Ordering Physician: Stevo Her M.D. Date of Service: 03/19/24 Procedure(s): XR chest 2V Accession Number(s): [id number] cc: Alen Snider M.D.; Stevo Her M.D.~ For Patients: As a result of the Cures Act, medical imaging exams and procedure reports are released immediately into your electronic medical record. You may view this report before your referring provider. If you have questions, please contact your health care provider. INDICATION: Chest pain. TECHNIQUE: Chest 2 views. COMPARISON: 06/11/2022. FINDINGS: Cardiovascular and mediastinum: Heart size and vasculature are normal in caliber and appearance. Lungs and pleural spaces: No focal consolidation, pleural effusion, or pneumothorax. Bones and soft tissues: Cholecystectomy clips, otherwise unremarkable for age. IMPRESSION: No evidence of an acute pulmonary process. Dictated by Hilario Saleem MD @ 03/19/2024 9:55:59 PM (Electronically Signed)[address] [address] Diagnostic Imaging Report Patient: Cordell Mota MR#: [id number] : 1970 Acct:[id number] Loc: ED Service Date: 03/19/[address]: Ordering Physician: Stevo Her M.D. Date of Service: 03/19/24 Procedure(s): CT angio chest PE protocol Accession Number(s): [id number] cc: Alen Snider M.D.; Stevo Her M.D.~ For Patients: As a result of the Cures Act, medical imaging exams and procedure reports are released immediately into your electronic medical record. You may view this report before your referring provider. If you have questions, please contact your health care provider. Indication: Chest pain, elevated D-dimer Technique: Postcontrast CTA of the chest following 95 mL Isovue 370 IV contrast. Axial MIP images obtained. Comparison: None Findings: Pulmonary arteries: No pulmonary embolism appreciated. Lungs: Mild pulmonary mosaicism noted, nonspecific could be seen with small vessel or small airways disease. Bronchial wall thickening. No organized consolidation. No pneumothorax. No effusion. Mediastinum: No acute abnormality appreciated. Calcified coronary arterial atherosclerosis. Lymph nodes: No gross lymphadenopathy. Upper abdomen: Cholecystectomy. Soft tissues: No acute abnormality appreciated. Bones: No acute abnormality appreciated. Impression: 1. No pulmonary embolism. 2. Pulmonary mosaicism is noted along with bronchial wall thickening. These findings are nonspecific but suggest either small vessel or small airways disease. 3. Calcified coronary arterial atherosclerosis. Please note that all CT scans at this facility use dose modulation, iterative reconstruction, and/or weight-based dosing when appropriate to reduce radiation dose to as low as reasonably achievable. Dictated by Emery Shah MD @ 03/20/2024 12:36:53 AM (Electronically Signed) ECG Data Attestation: I personally reviewed and interpreted this ECG as follows: ECG interpretation date: 03/19/24 Prior ECG tracings: available for review Interpretation: EKG shows normal sinus rhythm with sinus arrhythmia, no acute ST wave changes, QRS is 74 QT is 382 and QTC is 435 Assessment: Normal EKG Discharge Plan Discharge Clinical Impression: Chest pain, atypical Patient Disposition: Home w/ Parent or Adult Condition: Stable Instructions: Chest Pain (DC) Additional Instructions: Home rest recommend follow-up primary care in 1-2 weeks consider stress echo as an outpatient if ongoing symptoms. Or return to the ER. I went over this with her. I also discussed with her primary care Doc. Activity Level: Light activity Prescriptions: No Action albuterol sulfate 90 mcg/actuation HFA aerosol inhaler 2 inh inhalation Q4H PRN Patient Comments: INHALE 2 PUFFS BY MOUTH EVERY 4 HOURS NEEDED aspirin 81 mg tablet,delayed release (DR/EC) 81 mg PO QDAY Fish Oil 100-160-1,000 mg capsule 1 cap PO DAILY Probiotic 3 billion cell capsule 3,000 mmu cells PO QDAY Rx Instructions: administer with a meal magnesium 250 mg tablet 500 mg PO QDAY omeprazole 20 mg capsule,delayed release(DR/EC) 20 mg PO BID Qty: 180 3RF tirzepatide 15 mg/0.5 mL pen injector 15 mg subcut QWEEK Qty: 2 5RF nabumetone 750 mg tablet 750 mg PO BID Qty: 60 5RF losartan-hydrochlorothiazide 50-12.5 mg tablet 1 tab PO QDAY Qty: 90 3RF ascorbic acid (vitamin C) 500 mg tablet 500 mg PO DAILY cholecalciferol (vitamin D3) 25 mcg (1,000 unit) tablet 2,000 unit PO DAILY furosemide 20 mg tablet 20 mg PO QAM Qty: 90 0RF Follow Up/Referrals: Alen Snider MD [Primary Care Provider] - Stand Alone [facility]
[2024-03-19 21:52] LABS: Basophils Absolute Auto 0.04 K/uL (0.00-0.30); Basophils Percent Auto 0.4 % (0.0-3.0); Eosinophils Absolute Auto 0.09 K/uL (0.00-0.50); Hematocrit 37.8 % (33.0-51.0); Hemoglobin* 12.5 gm/dL (12.0-16.0); Immature Granulocytes Abs Auto 0.04 K/uL (0.00-0.30); Immature Granulocytes Pct Auto 0.4 %; Lymphocytes Absolute Auto 3.13 K/uL (0.90-2.90); Lymphocytes Percent Auto 33.4 % (20-44); Mean Corpuscular HGB Conc 33 gm/dL (32-36); Mean Corpuscular Hemoglobin 31 pg (26-34); Mean Corpuscular Volume 95 fL (80-100); Neutrophils Percent Auto 58.8 % (42.0-72.0); Platelet Count* 260 K/uL (140-440); RDW Coefficient of Variation % 12.2 % (11.5-15.5); Red Blood Count 3.99 m/uL (4.00-5.20); White Blood Count* 9.36 K/uL (4.50-11.00)
[2024-03-19] MEDS: 0.9 % SODIUM CHLORIDE 1000 ml 1,000 ML IV (21:52)
[2024-03-19 21:59] LABS: Slide Review Reflex No
[2024-03-19 22:05] LABS: Chloride* 103 mmol/L (96-114); Sodium* 138 mmol/L (135-149)
[2024-03-19 22:08] LABS: Anion Gap 6 mEq/L (7-15); Blood Urea Nitrogen* 16 mg/dL (7-30); Carbon Dioxide* 29 mmol/L (20-32); Creatinine* 0.6 mg/dL (0.5-1.5); Est. Creatinine Clearance* 93.64; Estimated Glomerular Filt Rate 107 ml/min; Glucose* 120 mg/dL (60-115)
[2024-03-19 22:18] LABS: NT Pro B Type NatriureticPept* 31 pg/mL
[2024-03-19 22:35] LABS: Prothrombin Time 12.7 Seconds
[2024-03-19 22:36] LABS: Partial Thromboplastin Time* 26 Seconds (23-33)
[2024-03-19 22:40] LABS: D Dimer Quantitative* 0.71 ug/ml (0.00-0.50)
== END 2024-03-20 00:59 | disposition home or self-care (01) ==
PROVIDERS: Emergency Provider Family Medicine; PCP Family Medicine
DX: R07.89 Other chest pain (principal)
CPT/HCPCS: 36415; 71046; 71275; 80048; 83880; 84484; 85025; 85379; 85610; 85730; 93005; 94761; 99285; J7030; Q9967

== ENCOUNTER 2024-05-27 08:47 | Outpatient (CLI) | payer OTHER, SELFPAY ==
--- NOTE | 2024-05-27 10:59 | W.PM.STED ---
Stress Test Note Date Date Seen: 05/27/24 Date of test: 05/27/24 Providers Referring provider: Stevo Her Primary care provider: Alen Snider Stress test physician: Brandi Lino Stress Test Note Stress test ordered: Stress Myoview Indication for test: Chest pain Stress test medicine: None Results discussion: Resting EKG: Sinus rhythm, 66 beats per minute. Isolated flipped T-waves lead V1 and 3. Resting blood pressure: 112/82 Stress test: Patient is consented on treadmill Myoview which was the ordered stress test, agrees to proceed. Standard [facility] protocol was followed for treadmill exercise testing. Patient had the isotope injected at peak exercise, exercised for close to another 90 seconds beyond injection. Patient exercised to 9 minutes, stopping due to meeting heart rate goal and exercise capacity. This was equivalent to 10.5 Mets. She had a maximum heart rate of 167 beats per minute which was 115% of a calculated target heart rate of 142. She has a rate pressure product of 23,380. There was artifact on her EKG during exercise but overall no noted ischemia. There certainly was not any diagnostic ischemia in recovery. She had a maximal blood pressure during exercise of 140/92, no hypertensive response noted. There was no arrhythmia noted, patient had no symptoms of chest pain. Impression: Subjectively negative, objectively negative EKG portion of this stress test. Follow up suggested: Await nuclear images to couple this for a full formal diagnostic. She was discharged from my care in stable condition. She will follow-up with Dr. Snider, has a clinic appointment set up.
[2024-05-27 11:03] VITALS: BP 124/78; PULSE 106; RESP 16
== END 2024-05-27 08:48 | disposition home or self-care (01) ==
PROVIDERS: PCP Family Medicine; Visit Provider Family Medicine
DX: R07.9 Chest pain, unspecified (principal)
CPT/HCPCS: 78452; 93016; 93017; A9500

== ENCOUNTER 2024-11-21 17:47 | Emergency (ER) | payer OTHER, SELFPAY ==
--- OUTSIDE RECORDS SUMMARY | 2021-06-21 23:30 | XMS_ITS | Continuity of Care Document ---
Author Organization [facility] Address [address] [address] [place] [address] Phone Care Team Providers Care Catalyst Recovery Operator Name Role Phone No Information Unavailable Unavailable Allergies, Adverse Reactions, Alerts Substance Reaction Status Criticality adhesive tape Rash Active No Information morphine Active No Information POTASSIUM CLAVULANATE Active No Inf ormation AMOXICILLIN TRIHYDRATE Active No In formation Medications Medication Instructions Dosage Effective Dates (start - stop) Status Comments Remicade 100 mg intravenous solution Administer Remicade 5mg/kg at weeks 0, 2 and 6. Infuse by IV route. - Active Remicade 100 mg intravenous solution Administer Remicade 5mg/kg every eight weeks, infuse by IV route - Active Lantus U-100 Insulin 100 unit/mL subcutaneous solution inject by subcutaneous route as per insulin protocol 0.00 - Active glimepiride 4 mg tablet take 1 tablet by oral route every day 4 MG - Active lisinopril 20 mg tablet take 1 tablet by oral route every day 20 MG - Active furosemide 10 mg/mL oral solution take 2 milliliter by oral route every day 20 MG - Active Vitamin C 500 mg capsule,extended release take 1 capsule by oral route every day 1 capsule - Active budesonide DR - ER 3 mg capsule,delayed,exten ded release take 3 capsule by oral route every day in the morning for up to 8 weeks 9 MG - Active Fish Oil 1,000 mg (120 mg-180 mg) capsule take 1 capsule by oral route every day 1 capsule - Active omeprazole 20 mg capsule,delayed release take 1 capsule by oral route every day before a meal 20 MG - Active Vitamin D3 50 mcg (2,000 unit) capsule take 1 tablet by oral route every day 1 tablet - Active cetirizine 10 mg tablet take 1 tablet by oral route every day as needed 10 MG - Active Tums 200 mg calcium (500 mg) chewable tablet chew 2 - 4 tablet by oral route every day as needed 2-4 tablet - Active Procedures Procedure Date Offic/outpt E&m Estab Mod-hi 2 Stool Kits Given C. Difficile Toxin Gene, BRYANNA Offic/outpt E&m New Mod Sever Routine Serum Collection Ag-immunoassay; Hep B Surface Bld Ct; Hg/pltlt Ct Auto/compl Hepatitis A Antibody; Igg & Ig Hep B Core Antibody Hepatitis B Surface Antibody Hepatic Function Panel Iron Iron Binding Capacity Cyanocobalamin Vitamin D; 25 Hydroxy Advance Directives Directive Yes / No Effective Date File Name No Information Encounters Encounter Description Practice Location Reason(s) For Visit Diagnoses Date Provider Providers Copied on Encounter [facility] [address] [address], [place], [place], [id number], [place] tel:[phone] No Information No Information [facility], [address] [address], [place], [place], [id number], [place] tel:[phone] [facility] No Information 1 Gopal Dejesus. [address] [facility], [facility] [address], [place], [place], [address], [place]. tel:[phone] Offic/outpt E&m Estab Mod-hi 2 [facility] [address] [address], [place], [place], [address], [place] tel:[phone] [facility] GI Symptoms or Concerns (chief complaint) Crohn's disease of large intestine with rectal bleeding 1 Gopal Dejesus. [address] [facility], [facility] [address], [place], [place], [address], [place]. tel:[phone] Referring Provider: Referral Self, USE FOR SELF REFERRALS. [facility], [address] [address], [place], [place], [address], [place] tel:[phone] [facility] No Information 1 ALDENorjo Augustin. [address] [facility], [facility] [address], [place], [place], [id number], [place]. tel:[phone] [facility], [address] [address], [place], [place], [address], [place] tel:[phone] [facility] Crohn's disease of large intestine with rectal bleeding 1 OMorjo Augustin. [address] [facility], [facility] [address], [place], [place], [address], [place]. tel:[phone] Referring Provider: Demetria Rivera, [address] [facility] [address], [place], [address] . tel:[phone] Offic/outpt E&m [facility], [address] [address], [place], [place], [address], [place] tel:[phone] [facility] GI Symptoms or Concerns (chief complaint) Crohn's disease of large intestine with rectal bleeding 1 OMor[place]oe PAC Demetria. [address] [facility], [facility] [address], [place], [place], [address], [place]. tel:[phone] Referring Provider: Alen Snider MD, [address] [place], [address]. tel:[phone] [facility], [address] [address], [place], [place], [address], [place] tel:[phone] [facility] No Information Raimundo Mcgill. [address] [facility], [address] [address], [place], [place], [address], . tel:[phone] Family History Family Member Type Diagnosis Age At Onset Problem (finding) Family history of Diabe malcolm mellitus Problem (finding) Family history of Crohn 's Disease Immunizations Vaccine Date Status Comments SARS-COV-2 (COVID-19) vaccin e, mRNA, spike protein, LNP, preservative free, 30 mcg/0.3mL dose administered Note: [facility] bi-direct ional interface ; Source: Other Registry SARS-COV-2 (COVID-19) vaccin e, mRNA, spike protein, LNP, preservative free, 30 mcg/0.3mL dose administered Note: [facility] bi-direct ional interface ; Source: Other Registry Influenza, seasonal, injecta ble, preservative free administered Note: [facility] bi-direct ional interface ; Source: Other Registry Seasonal, quadrivalent, recombinant, injectable influenza vaccine, preservative free administered Note: [facility] bi-direct ional interface ; Source: Other Registry Influenza, seasonal, injecta ble, preservative free administered Note: [facility] bi-direct ional interface ; Source: Other Registry Afluria Qd administered Note: [facility] bi-directional interface ; Source: Other Registry Afluria Qd administered Note: [facility] bi-directional interface ; Source: Other Registry Afluria Qd administered Note: [facility] bi-directional interface ; Source: Other Registry Afluria Qd administered Note: [facility] bi-directional interface ; Source: Other Registry Afluria Qd administered Note: [facility] bi-directional interface ; Source: Other Registry Afluria Qd administered Note: [facility] bi-directional interface ; Source: Other Registry seasonal influenza, intrader mal, preservative free administered Note: [facility] bi-direct ional interface ; Source: Other Registry Influenza, seasonal, injecta ble, preservative free administered Note: [facility] bi-direct ional interface ; Source: Other Registry Influenza, seasonal, injecta ble, preservative free administered Note: [facility] bi-direct ional interface ; Source: Other Registry Influenza, seasonal, injecta ble, preservative free administered Note: [facility] bi-direct ional interface ; Source: Other Registry Influenza, seasonal, injecta ble, preservative free administered Note: [facility] bi-direct ional interface ; Source: Other Registry Novel [id number], all formulations administered Note: [facility] bi-direct ional interface ; Source: Other Registry Influenza, seasonal, injectable administe red Note: [facility] bi- directional interface ; Source: Other Registry Influenza, seasonal, injecta ble, preservative free administered Note: [facility] bi-direct ional interface ; Source: Other Registry Payers Payer name Insurance type Covered alliance party ID Authoriza tion(s) No Information Social History Type Description Quantity Date Captured Comments Sex Female Smoking Status No Information Chief Complaint And Reason For Visit No Information Reason For Referral Reason For Referral No Information Plan Of Treatment Date Type Action Status Referral Ordered: Administer Remicade 5mg/kg at weeks 0, 2 and 6. Infuse by IV route. ordered Referral Ordered: MRI Enterography WITH Contrast Appointment date/timeframe: 08/03/2020 ordered History Of Present Illness Encounter Date Complaint History Of Prese nt Illness GI Symptoms or Concerns 50-year- old woman with obesity and diabetes, hypertension, and recently diagnosed Crohn's disease of the colon and IC valve, who presents for follow-up. Crohn's disease was diagnosed on colonoscopy at [facility]. She had severe erosion at the IC valve and appearance of moderate inflammation in the descending sigmoid and rectum. Biopsies were consistent with chronic inflammation suspicious for Crohn's disease. The terminal ileum was not intubated. MR ED on 07/30/2020 showed procto sigmoid colitis, but was otherwise unremarkable. There is no evidence of small intestine disease. Labs were done on 07/19/2020 including a negative QuantiFERON, heterozygous TPMT at 12.9, and showing immunity to hepatitis-A and hepatitis-B. She completed a prednisone taper, and has been off of prednisone for at least 2 months or so. She was started on 6 mercaptopurine 100 milligrams daily in July. She has actually felt worse on the 6 mercaptopurine. She is having more bod GI Symptoms or Concerns Cordell Mota is a 50-year-old female with medical history of diabetes, previous cholecystectomy, previous hysterectomy, and previous section who presents today after being given a diagnosis of Crohn's disease after colonoscopy in [place], [place].The patient reports that she went to the emergency room in early May with symptoms of abdominal pain, black stool, and some rectal bleeding. During her evaluation at the ER, a CT scan was completed. This was done on the . This was a non-contrast CT. There was mild inflammation seen in the cecum with adjacent mesenteric adenopathy. Her terminal ileum was noted as normal on this non-contrast imaging. Her lab work indicated a CRP of 22, white blood cell count of 16, hemoglobin of 14, and normal creatinine. She was referred for a colonoscopy. This was completed at [facility] I believe. There was not a kids activities coach who completed this. The colonoscopy findings include severe erosion of the ileocecal Functional Status Date Functional Assessmen t No Information Instructions Date Instruction Additional Infor earnest 1. Crohn's disease o f the left colon and IC valve. -decrease 6 MP to 50 milligrams daily. Ideally would continue this low dose for 6 months of starting biologic therapy and then discontinue. If still intolerant of this dosage, then would discontinue earlier. - will seek approval for biologic therapy, ideally infliximab. She plans to have this infused at [facility]. - in the meantime will treat with budesonide 9 milligrams daily for 2 months. 2. GERD. -continue omeprazole 20 milligrams twice per day. 3. Health maintenance -Recommended COVID-19 booster vaccine. - recommended influenza vaccine at next available. Related to Crohn's disease of large intestine with rectal bleeding IBD Folder Related to Crohn 's disease of large intestine with rectal bleeding Humira Related to Crohn 's disease of large intestine with rectal bleeding Remicade Related to Crohn 's disease of large intestine with rectal bleeding Assessments Type Assessment Date No Information Patient Care Teams Name Effective Dates (start - stop) Status Members No Information
--- OUTSIDE RECORDS SUMMARY | 2021-06-21 23:30 | XMS_ITS | Continuity of Care Document ---
Author Organization [facility] Address [address] [address] [place] [address] Phone Care Team Providers Care Boat Dock Operator Name Role Phone No Information Unavailable [...] Diagnoses Date Provider Providers Copied on Encounter [facility] [address] [address], [place], [place], [address], [place] tel:[phone] No Information No Information [facility], [address] [address], [place], [place], [address], [place] tel:[phone] [facility] No Information 1 Gopal Dejesus. [address] [facility], [facility] [address], [place], [place], [address], [place]. tel:[phone] Offic/outpt E&m Estab Mod-hi 2 [facility] [address] [address], [place], [place], [address], [place] tel:[phone] [facility] GI Symptoms or Concerns (chief complaint) Crohn's disease of large intestine with rectal bleeding 1 Gopal Dejesus. [address] [facility], [facility] [address], [place], [place], [address], [place]. tel:[phone] Referring Provider: Referral Self, USE FOR SELF REFERRALS. [facility], [address] [address], [place], [place], [address], [place] tel:[phone] [facility] No Information 1 ALDENorjo Augustin. [address] [facility], [facility] [address], [place], [place], [address], [place]. tel:[phone] [facility], [address] [address], [place], [place], [address], [place] tel:[phone] [facility] Crohn's disease of large intestine with rectal bleeding 1 OMorjo Augustin. [address] [facility], [facility] [address], [place], [place], [address], [place]. tel:[phone] Referring Provider: Demteria Rivera, [address] [facility] [address], [place], [address] . tel:[phone] Offic/outpt E&m [facility], [address] [address], [place], [place], [address], [place] tel:[phone] [facility] GI Symptoms or Concerns (chief complaint) Crohn's disease of large intestine with rectal bleeding 1 [place] PAC Demetria. [address] [facility], [facility] [address], [place], [place], [address], [place]. tel:[phone] Referring Provider: Alen Snider MD, [address] [place], [address]. tel:[phone] [facility], [address] [address], [place], [place], [address], [place] tel:[phone] [facility] No Information Raimundo Mcgill. [address] [facility], [address] [address], [place], [place], [address], . tel:[phone] Family History Family Member Type Diagnosis Age [...] ional interface ; Source: Other Registry Novel [id number], all formulations administered Note: [facility] bi-direct ional interface ; Source: Other Registry Influenza, seasonal, injectable administe red Note: [facility] bi- directional interface ; Source: Other Registry Influenza, seasonal, injecta ble, preservative free administered Note: [facility] bi-direct ional interface ; Source: Other Registry Payers Payer name Insurance type Covered green party ID Authoriza tion(s) No Information Social [...] Crohn's disease was diagnosed on colonoscopy at [facility]. She had severe erosion at the [...] diagnosis of Crohn's disease after colonoscopy in [place], [place].The patient reports that she went to [...] for a colonoscopy. This was completed at [facility] I believe. There was not a junior recruiter who completed this. The colonoscopy findings include [...] She plans to have this infused at [facility]. - in the meantime will treat [...]
--- OUTSIDE RECORDS SUMMARY | 2024-11-21 17:49 | XMS_ITS | Clinical Summary ---
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 Gender Identity Not on file Sexual Orientation Not on file Obstetrics History Last Filed Vital Signs Vital Sign Reading Time Taken Comments Blood Pressure 117/83 12/31/2013 1:53 PM MAGAZINE EDITOR Pulse 92 12/31/2013 1:53 PM MAGAZINE EDITOR Temperature - - Respiratory Rate - - Oxygen Saturation - - Inhaled Oxygen Concentration - - Weight - - Height - - Body Mass Index - - Plan of Treatment Health Maintenance Due Date Last Done Comments Tetanus booster 1981 Depression screening for age 12+ 1982 HIV for age 15-65 1985 BMI (ht and wt on same day) for age 18+ 1988 Hepatitis C screening for age 18-79 1988 Hepatitis B series for 19+ ( 1 of 3 - 19+ 3-dose series) 1989 Pap test for age 21-65 06/10/1991 Colonoscopy through age 75 06/10/2015 Lipids for age 45-75 06/10/2015 Mammogram for age 45-75 08/15/2015 08/14/2014 Pneumococcal series for age 50+ (1 of 1 - PCV) 021 Zoster (shingles) series for age 50+ (1 of 2) 06/10/19 21 COVID-19 vaccine series (1 - 2023- season) 5 Influenza Vaccine (#1) 2024 RSV vaccine for adults or pr egnancy (1 - 1-dose 75+ series) 2045 Procedures Procedure Name Priority Date/Time Associated Diagnosis Comments SCAN-MAMMOGRAPHY REPORT 08/14/2014 12:00 AM CDT from Last 3 Months or Most Recently Relevant to Health Maintenance Results * SCAN-MAMMOGRAPHY REPORT (08/14/2014 12:00 AM CDT) Anatomical Region Laterality Modality Other us Scanner OTHER Final Result from Last 3 Months or Most Recently Relevant to Health Maintenance Insurance [facility] Care Teams Local Intermodal Truck Driver Relationship Specialty Start Date End Date Pcp, No . PCP - General 12/15/13
--- OUTSIDE RECORDS SUMMARY | 2024-11-21 17:49 | XMS_ITS | Clinical Summary ---
Author Organization [facility] Address [address] [place] [address]. 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
[2024-11-21 17:59] VITALS: BP 123/78; PULSE 89; RESP 18; TEMP 36.8; O2SAT 99; BMI 36.4
--- NOTE | 2024-11-21 18:05 | ED.GENADULT ---
HPI - General Adult General Date Seen: 11/21/24 Chief complaint: Flank Pain Stated complaint: Possible Kidney stones Time Seen by Provider: 11/21/24 18:05 Source: patient, RN notes reviewed and old records reviewed Mode of arrival: ambulatory Limitations: no limitations History of Present Illness HPI narrative: Patient is a very pleasant 54-year-old female with history of Crohn's disease, type 2 diabetes, hypertension and known kidney stones who comes to the emergency room for evaluation regarding right flank and abdominal pain. Patient notes no recent kidney stones that brought her to the hospital but has described pain originating in her kidney/right flank radiating around to her abdomen after a few days and then dissipating. She is wondering if she has been passing small stones. She does know that she has a few large stones in the kidneys based on previous CT. 3 days ago she started experiencing right flank pain but pain really has not acted like it usually does. It is persisted in the right flank is wrapping around to the right upper quadrant and she feels like she has swelling in the right lateral abdomen. She also describes significant urgency when she has increased pain. She has not seen any blood in the urine and it does not hurt to urinate. She does not note a fever but did wake up at 0200 hours this morning when the same pain suddenly worsened in a sweat. No vomiting but positive for nausea. No diarrhea. Has been using Tylenol and ibuprofen. Last dose at approximately noon. Is not helping at this time. Patient has absent gallbladder. Related Data Home Medications ?Medication ?Instructions ?Recorded ?Confirmed albuterol sulfate 90 mcg/actuation 2 inh inhalation Q4H PRN 12/02/21 06/06/24 aerosol inhaler aspirin 81 mg tablet,delayed 81 mg PO QDAY 12/02/21 06/06/24 release lactobacillus combination no.4 3 3,000 mmu cells PO QDAY 12/02/21 06/06/24 billion cell capsule (Probiotic) omega 7-unt-egq-fish oil 100 1 cap PO DAILY 12/02/21 06/06/24 mg-160 mg-1,000 mg capsule (Fish Oil) ascorbic acid (vitamin C) 500 mg 500 mg PO DAILY 01/20/22 06/06/24 tablet cholecalciferol (vitamin D3) 25 2,000 unit PO DAILY 04/21/22 06/06/24 mcg (1,000 unit) tablet magnesium 250 mg tablet 500 mg PO QDAY 02/16/23 06/06/24 Previous Rx's ?Medication ?Instructions ?Recorded nabumetone 750 mg tablet 750 mg PO BID #60 tabs 10/24/23 clindamycin HCl 300 mg capsule 300 mg PO TID #21 caps 06/06/24 furosemide 20 mg tablet 20 mg PO QAM #90 tabs 06/06/24 losartan 50 mg-hydrochlorothiazide 1 tab PO QDAY #90 tabs 06/06/24 12.5 mg tablet oxycodone-acetaminophen 5 mg-325 1 tab PO TID PRN pain #20 tabs 06/06/24 mg tablet (Percocet) tirzepatide 15 mg/0.5 mL 15 mg (0.5 mL) subcut QWEEK #2 mL 06/06/24 subcutaneous pen injector omeprazole 20 mg capsule,delayed 20 mg PO BID #180 caps 11/05/24 release hydrocodone 5 mg-acetaminophen 325 1 tab PO Q4-6H PRN pain #10 tabs 11/21/24 mg tablet valacyclovir 1 gram tablet 1,000 mg PO TID #21 tabs 11/21/24 (Valtrex) Allergies Allergy/AdvReac Type Severity Reaction Status Date / Time clavulanic acid Allergy Verified 11/21/24 19:24 morphine AdvReac Intermediate Vomiting Verified 11/21/24 19:24 Review of Systems Status of ROS: Reports: 10 or more systems reviewed and unremarkable except as noted in History and below Const: Reports: chills; Denies: fever Eyes: Denies: change in vision ENMT: Denies: throat pain, neck pain or nasal congestion Cardio: Denies: chest pain, lightheadedness or shortness of breath with exertion Resp: Denies: shortness of breath or cough GI: Reports: abdominal pain and nausea; Denies: vomiting, diarrhea or blood in stool : Reports: urinary urgency; Denies: painful urination, urinary frequency or blood in urine Musculo: Reports: back pain; Denies: neck pain or extremity pain [facility] History Primary hypertension ?I10 - Essential (primary) hypertension (ICD-10) Type 2 diabetes mellitus, without long-term current use of insulin ?E11.9 - Type 2 diabetes mellitus without complications (ICD-10) Urinary urgency ?R39.15 - Urgency of urination (ICD-10) Plantar fasciitis ?M72.2 - Plantar fascial fibromatosis (ICD-10) Morbid obesity ?E66.01 - Morbid (severe) obesity due to excess calories (ICD-10) Migraine headache (02/28/12) ?G43.909 - Migraine, unspecified, not intractable, without status migrainosus (ICD-10) Low vitamin D level ?R79.89 - Other specified abnormal findings of blood chemistry (ICD-10) Intracranial hypertension ?G93.2 - Benign intracranial hypertension (ICD-10) Depression (02/28/12) ?F32.A - Depression, unspecified (ICD-10) Crohn's disease ?K50.90 - Crohn's disease, unspecified, without complications (ICD-10) Chronic gastroesophageal reflux disease ?K21.9 - Gastro-esophageal reflux disease without esophagitis (ICD-10) Abscess of [place]'s duct ?N34.0 - Urethral abscess (ICD-10) Surgical History Status post incision and drainage (03/18/21) ?Z98.890 - Other specified postprocedural states (ICD-10) History of unilateral oophorectomy (2009) ?Z90.721 - Acquired absence of ovaries, unilateral (ICD-10) History of left oophorectomy ?Z90.721 - Acquired absence of ovaries, unilateral (ICD-10) History of laparoscopic cholecystectomy (2012) ?Z90.49 - Acquired absence of other specified parts of digestive tract (ICD-10) History of incisional hernia repair (2012) ?Z98.890 - Other specified postprocedural states (ICD-10) ?Z87.19 - Personal history of other diseases of the digestive system (ICD-10) History of hysterectomy (2005) ?Z90.710 - Acquired absence of both cervix and uterus (ICD-10) History of 3 sections ?Z98.891 - History of uterine scar from previous surgery (ICD-10) Family History Uncle Colon cancer Aunt Breast cancer Maternal Grandmother Heart disease Stroke Maternal Grandfather Heart disease Father Heart disease Diabetes High blood pressure Basal cell carcinoma Obesity Kidney disease Mother Diabetes Obesity Daughter Anxiety Son ADHD Brother Obesity Social History Narrative: walks 1mile 3x per week, , 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, 3 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, nonsmoker, rarely consumes alcohol What is your current living situation?: I presently have a place to live Problems where you live: no known problems In the past 12 months, utilities in danger of being shut off: no In past 12 months, lack of transportation kept you from medical appts, meetings, work, or getting things needed for daily living: no In the past 12 mos, have been you worried that your food would run out before you had money to buy more?: never true In the past 12 mos, the food you bought just didn't last and you didn't have money to buy more?: never true Smoking Status: Never smoker Do you use any of these nicotine containing products: None Second hand tobacco smoke exposure: No How often do you have a drink containing alcohol: never How often do you have six or more drinks on one occasion: Never AUDIT-C Alcohol total score: 0 Non-prescribed substance use: denies use How often does anyone, including family, friends and others, physically hurt you: decline to answer How often does anyone, including family, friends and others, insult or talk down to you: decline to answer How often does anyone, including family, friends and others, threaten you with harm: decline to answer How often does anyone, including family, friends and others, scream or curse at you: decline to answer service: No Exam Narrative: Exam Narrative: Alert and oriented. No acute distress. External ears eyes nose clear. Mentation and speech is normal. Neck is supple. Heart with regular rate and rhythm and lungs are clear. Positive for CVA tenderness with percussion on the right. Abdomen also shows tenderness right upper quadrant. No lower extremity edema. Const: Vital Signs, click to edit/add: Vital Signs - 24 hr 11/21/24 17:59 11/21/24 19:20 11/21/24 22:06 Temperature 98.2 F Pulse Rate [Pulse Oximeter] 89 84 89 Respiratory Rate 18 18 18 Blood Pressure [Ri ght Upper Arm] 123/78 119/72 115/64 Pulse Oximetry 99 98 Oxygen Delivery Me thod Room Air Room Air Documenting provider has reviewed patient's vital signs: yes Course Course ED Course: Differential diagnosis includes but is not limited to the ureteral colic, pyelonephritis, Crohn's flare, diverticulitis. Will obtain urinalysis, CBC, comprehensive panel, CRP. Plan on CT at this time. Recommend IV placement normal saline and Toradol as well. Reevaluation(s) Reevaluation #1: Patient feeling better after Toradol. Urinalysis without any evidence of hematuria was therefore over his proceed with contrast CT given history of Crohn's disease. Vital Signs Vital signs: Initial Vital Signs Temperature 98.2 F 11/21/24 17:59 Temperature Source Temporal Artery Scan 11/21/24 17:59 Pulse Rate 89 11/21/24 17:59 Respiratory Rate 18 11/21/24 17:59 Blood Pressure 123/78 11/21/24 17:59 Blood Pressure Mean 93 11/21/24 17:59 Pulse Oximetry 99 11/21/24 17:59 Oxygen Delivery Method Room Air 11/21/24 17:59 Vital Signs Temperature 98.2 F 11/21/24 17:59 Pulse Rate 89 11/21/24 17:59 Respiratory Rate 18 11/21/24 17:59 Blood Pressure 123/78 11/21/24 17:59 Pulse Oximetry 99 11/21/24 17:59 Oxygen Delivery Method Room Air 11/21/24 17:59 Temperature 98.2 F 11/21/24 17:59 Pulse Rate 89 11/21/24 22:06 Respiratory Rate 18 11/21/24 22:06 Blood Pressure 115/64 11/21/24 22:06 Pulse Oximetry 98 11/21/24 19:20 Oxygen Delivery Method Room Air 11/21/24 19:20 Medications Administered Medications: Discontinued Medications Generic Name Dose Route Start Last Admin Trade Name Freq PRN Reason Stop Dose Admin Hydrocodone Bitart/Acetaminophen 1 tab 11/21/24 21:32 11/21/24 21:54 Hydrocodone-Acetamin 5-325 Mg 1 Tab PO 11/21/24 21:33 1 tab ONCE ONE Administration Sodium Chloride 1,000 mls @ 1,000 mls/hr 11/21/24 18:12 11/21/24 19:50 0.9 % Sodium Chloride 1000 Ml IV 11/21/24 19:11 Infused .Q1H JULIETH Infusion Ketorolac Tromethamine 15 mg 11/21/24 18:12 11/21/24 18:52 Ketorolac 15 Mg/Ml Inj IVP 11/21/24 18:13 15 mg ONCE ONE Administration Medical Decision Making MDM Narrative Medical decision making narrative: 1. Right flank pain-patient noted to have no evidence of stone on CT. There is no evidence of hydronephrosis and she has absent gallbladder. On reexamination I have found 3 discrete areas of erythema at the level of her discomfort just to the right of her spine. I am wondering if she is actually developing shingles. Will place her on Valtrex 1 g p.o. t.i.d. x7 days. Would have her follow-up with her primary for worsening symptoms. She has had the shingles vaccination. At this time I have no other explanation for the discomfort at this level which is very similar to what she feels when she has a kidney stone. Fortunately no evidence of UTI or pyelonephritis. 2. Incidental finding of a mass in the right buttock. Radiology notes that she had they have seen this previously but the internal appearance has changed. There is concern regarding liposarcoma. Because of this I did speak to our surgeon who suggest referral to [facility] for biopsy and further evaluation. We will have patient contact her primary doctor Agatha on Sunday in order to begin this process. 3. Disposition-also of note on CT was possible gastritis although surgery thought perhaps this was related to her Crohn's. No evidence of Crohn's flare noted on CT. At this time patient will be placed on Valtrex. For pain I would like her to discontinue her ibuprofen and I have given her a few doses of [place] / 25 1-2 tablets p.o. Q 4-6 hours p.r.n. pain 14. With no refills. Patient is given a [place] to take home tonight as unfortunately we do not have this medicine in our [facility] meds machine at this time. Patient is also noted to be on 10,000 IU of vitamin-D daily. This was secondary to low vitamin-D in the past. She is advised to have this rechecked with her primary. Medical Records Medical records reviewed: Yes I reviewed the patient's medical records Lab Data Lab results reviewed: Yes I reviewed the patient's lab results Labs: Lab Results 11/21/24 11/21/24 Range/Units 18:27 18:30 WBC 9.70 (4.50-11.00) K/uL RBC 4.36 (4.00-5.20) m/uL Hgb 13.5 (12.0-16.0) gm/dL Hct 40.8 (33.0-51.0) % MCV 94 (80-100) fL MCH 31 (26-34) pg MCHC 33 (32-36) gm/dL RDW Coeff of Mary Kate 12.2 (11.5-15.5) % Plt Count 277 (140-440) K/uL Neut % (Auto) 57.7 (42.0-72.0) % Lymph % (Auto) 35.1 (20-44) % [place] % (Auto) 5.9 (0.0-11.0) % Eos % (Auto) 0.6 (0.0-7.0) % Baso % (Auto) 0.5 (0.0-3.0) % Neut # (Auto) 5.60 (1.7-7.0) K/uL Lymph # (Auto) 3.40 H (0.90-2.90) K/uL [place] # (Auto) 0.60 (0.00-0.90) K/UL Eos # (Auto) 0.06 (0.00-0.50) K/uL Baso # (Auto) 0.05 (0.00-0.30) K/uL Abs Immat Gran (auto) 0.02 (0.00-0.30) K/uL Imm/Tot Granulo (auto) 0.2 % Sodium 135 (135-149) mmol/L Potassium 3.9 (3.6-5.1) mmol/L Chloride 99 (96-114) mmol/L Carbon Dioxide 30 (20-32) mmol/L Anion Gap 6 L (7-15) mEq/L BUN 25 (7-30) mg/dL Creatinine 0.8 (0.5-1.5) mg/dL Estimated Creat Clear 69.42 Estimated GFR 88 ml/min Glucose 97 (60-115) mg/dL Calcium 10.3 (8.4-10.6) mg/dL Total Bilirubin 0.5 (0.1-1.5) mg/dL AST 26 (12-35) U/L ALT 26 (4-35) U/L Alkaline Phosphatase 94 (40-150) U/L C-Reactive Protein 1.0 (0.5-1.0) mg/dL Total Protein 7.8 (6.0-8.3) g/dL Albumin 4.5 (3.3-5.0) g/dL Urine Color Yellow (Yellow) Urine Appearance Clear (Clear) Urine pH 5.0 (5.0-8.5) Ur Specific [place] >= 1.030 (1.000-1.030) Urine Protein Negative (Negative) Urine Glucose (UA) Negative (Negative) Urine Ketones 1+ A (Negative) Urine Blood Negative (Negative) Urine Nitrite Negative (Negative) Urine Bilirubin Negative (Negative) Urine Urobilinogen 0.2 (0.2-1.0) Ur Leukocyte Esterase Negative (Negative) Urine RBC 0-2 (0-2) Urine WBC 0-2 (0-5) Ur Squamous Epith Cells Moderate A (None-Few) Urine Bacteria None (None) Urine Mucus Moderate A (None) Imaging Data CT scan - abdomen: Attestation: I have reviewed the pertinent imaging results. My impression: I questioned a calcification in the pelvis that I thought may be representing a kidney stone and discuss this with radiology. They feel that is outside the ureter. Radiologist's impression: Lower chest: Unremarkable. Liver: Unremarkable. Spleen: Unremarkable. Pancreas: Unremarkable. Gallbladder: Previous cholecystectomy noted with no significant intra- or extrahepatic biliary ductal dilatation seen. Kidney: There is a 4 mm stone present in the lower pole of the left kidney. Adrenal: Unremarkable. Bowel: Mild wall thickening of the gastric antrum is suspected but difficult to assess due to the decompressed state of the stomach. The appendix is normal in appearance and size. Vascular: Unremarkable. Lymph: Unremarkable. Peritoneum: Unremarkable. No pneumoperitoneum is seen. No significant ascites is noted. Pelvis: The patient is status post hysterectomy. Soft tissue: Multiple metallic helical tacks are present along the anterior pelvic wall. Within the right gluteus kevin muscle, there is a ovoid fat containing lesion measuring 7 x 4 cm. There is increasing ground-glass infiltration present within the central aspect of this lesion compared to prior examination, suspicious for liposarcoma. Bone: Unremarkable for age. IMPRESSIONS: 1. Within the right gluteus kevin muscle, there is a ovoid fat containing lesion measuring 7 x 4 cm. There is increasing ground-glass infiltration present within the central aspect of this lesion compared to prior examination, suspicious for liposarcoma. 2. Mild wall thickening of the gastric antrum is suspected but difficult to assess due to the decompressed state of the stomach. This may be due to gastritis or peptic ulcer disease and confirmation with barium GI series or endoscopy is recommended. Discharge Plan Discharge Clinical Impression: Shingles, Acute flank pain, Mass of buttock Patient Disposition: Home, Self-Care Condition: Improved Additional Instructions: Follow-up with Dr. Snider by phone or in person on Sunday to help with arrangement of referral to [facility] or other tertiary care facility for evaluation of the mass in the buttock. Let us start you on an antiviral medication as I am concerned that the spots on your back may represent shingles. Valtrex 1 g 3 times daily for 7 days. Will have you discontinue ibuprofen at this time. For pain you may use [place] 5/325 Prescriptions: New hydrocodone-acetaminophen 5-325 mg tablet 1 tab PO Q4-6H PRN (Reason: pain) Qty: 10 0RF valacyclovir [Valtrex] 1 gram tablet 1,000 mg PO TID Qty: 21 0RF No Action albuterol sulfate 90 mcg/actuation HFA aerosol inhaler 2 inh inhalation Q4H PRN Patient Comments: INHALE 2 PUFFS BY MOUTH EVERY 4 HOURS NEEDED aspirin 81 mg tablet,delayed release (DR/EC) 81 mg PO QDAY Fish Oil 100-160-1,000 mg capsule 1 cap PO DAILY Probiotic 3 billion cell capsule 3,000 mmu cells PO QDAY Rx Instructions: administer with a meal magnesium 250 mg tablet 500 mg PO QDAY nabumetone 750 mg tablet 750 mg PO BID Qty: 60 5RF clindamycin HCl 300 mg capsule 300 mg PO TID Qty: 21 0RF oxycodone-acetaminophen [Percocet] 5-325 mg tablet 1 tab PO TID PRN (Reason: pain) Qty: 20 0RF tirzepatide 15 mg/0.5 mL pen injector 15 mg subcut QWEEK Qty: 2 5RF furosemide 20 mg tablet 20 mg PO QAM Qty: 90 3RF losartan-hydrochlorothiazide 50-12.5 mg tablet 1 tab PO QDAY Qty: 90 3RF ascorbic acid (vitamin C) 500 mg tablet 500 mg PO DAILY cholecalciferol (vitamin D3) 25 mcg (1,000 unit) tablet 2,000 unit PO DAILY omeprazole 20 mg capsule,delayed release(DR/EC) 20 mg PO BID Qty: 180 1RF Follow Up/Referrals: Alen Snider MD [Primary Care Provider, Family Practice] Stand Alone Forms: [employer] Info Instructions
[2024-11-21 18:33] LABS: Hematocrit* 40.8 % (33.0-51.0); Hemoglobin* 13.5 gm/dL (12.0-16.0); Immature Granulocytes Abs Auto 0.02 K/uL (0.00-0.30); Immature Granulocytes Pct Auto 0.2 %; Lymphocytes Absolute Auto 3.40 K/uL (0.90-2.90); Mean Corpuscular HGB Conc 33 gm/dL (32-36); Mean Corpuscular Hemoglobin 31 pg (26-34); Mean Corpuscular Volume 94 fL (80-100); RDW Coefficient of Variation % 12.2 % (11.5-15.5); Red Blood Count* 4.36 m/uL (4.00-5.20); White Blood Count* 9.70 K/uL (4.50-11.00)
[2024-11-21 18:35] LABS: Appearance Urine Clear (Clear)
[2024-11-21 18:35] LABS: Slide Review Reflex No
[2024-11-21 18:46] LABS: Albumin* 4.5 g/dL (3.3-5.0); Chloride* 99 mmol/L (96-114); Potassium* 3.9 mmol/L (3.6-5.1); Sodium* 135 mmol/L (135-149)
--- NOTE | 2024-11-21 18:48 | CRLHL7_ITS ---
For Patients: As a result of the Century Cures Act, medical imaging exams and procedure reports are released immediately into your electronic medical record. You may view this report before your referring provider. If you have questions, please contact your health care provider. INDICATION: Flank pain, history kidney stones, history Crohn`s TECHNIQUE: CT Abdomen and pelvis with i.v. contrast. Coronal and sagittal reformats were obtained. CONTRAST: 104 mL Isovue 370 COMPARISON: 06/11/2022, 02/24/2022 FINDINGS: Lower chest: Unremarkable. Liver: Unremarkable. Spleen: Unremarkable. Pancreas: Unremarkable. Gallbladder: Previous cholecystectomy noted with no significant intra- or extrahepatic biliary ductal dilatation seen. Kidney: There is a 4 mm stone present in the lower pole of the left kidney. Adrenal: Unremarkable. Bowel: Mild wall thickening of the gastric antrum is suspected but difficult to assess due to the decompressed state of the stomach. The appendix is normal in appearance and size. Vascular: Unremarkable. Lymph: Unremarkable. Peritoneum: Unremarkable. No pneumoperitoneum is seen. No significant ascites is noted. Pelvis: The patient is status post hysterectomy. Soft tissue: Multiple metallic helical tacks are present along the anterior pelvic wall. Within the right gluteus kevin muscle, there is a ovoid fat containing lesion measuring 7 x 4 cm. There is increasing ground-glass infiltration present within the central aspect of this lesion compared to prior examination, suspicious for liposarcoma. Bone: Unremarkable for age. IMPRESSIONS: 1. Within the right gluteus kevin muscle, there is a ovoid fat containing lesion measuring 7 x 4 cm. There is increasing ground-glass infiltration present within the central aspect of this lesion compared to prior examination, suspicious for liposarcoma. 2. Mild wall thickening of the gastric antrum is suspected but difficult to assess due to the decompressed state of the stomach. This may be due to gastritis or peptic ulcer disease and confirmation with barium GI series or endoscopy is recommended. The findings were verbally communicated with Dr. Galvan at 7:34 PM. Dictated by Paul Moreira MD @ 11/21/2024 7:30:26 PM Please note that all CT scans at this facility use dose modulation, iterative reconstruction, and/or weight-based dosing when appropriate to reduce radiation dose to as low as reasonably achievable. Dictated by: Paul Moreira MD @ 11/21/2024 19:34:42 (Electronically Signed)
[2024-11-21 18:49] LABS: Blood Urea Nitrogen* 25 mg/dL (7-30); Creatinine* 0.8 mg/dL (0.5-1.5); Est. Creatinine Clearance* 69.42; Estimated Glomerular Filt Rate 88 ml/min
[2024-11-21 18:50] LABS: Alanine Aminotransferase* 26 U/L (4-35); Alkaline Phosphatase* 94 U/L (40-150); Anion Gap 6 mEq/L (7-15); Aspartate Amino Transferase* 26 U/L (12-35); Bilirubin Total* 0.5 mg/dL (0.1-1.5); Calcium* 10.3 mg/dL (8.4-10.6); Carbon Dioxide* 30 mmol/L (20-32); Glucose* 97 mg/dL (60-115); Total Protein* 7.8 g/dL (6.0-8.3)
[2024-11-21 19:20] VITALS: BP 119/72; PULSE 84; RESP 18; O2SAT 98
[2024-11-21] MEDS: HYDROCODONE-ACETAMIN 5-325 MG 1 TAB PO (21:54)
[2024-11-21 22:06] VITALS: BP 115/64; PULSE 89; RESP 18
== END 2024-11-21 21:57 | disposition home or self-care (01) ==
PROVIDERS: Emergency Provider Family Medicine; PCP Family Medicine
DX: B02.9 Zoster without complications (principal); R10.A1 Flank pain, right side; K50.90 Crohn's disease, unspecified, without complications; R22.2 Localized swelling, mass and lump, trunk; Z79.899 Other long term (current) drug therapy
CPT/HCPCS: 36415; 74177; 80053; 81001; 85025; 86140; 96361; 96374; 99284; 99285; A9270; J1885; J7030; Q9967

== ENCOUNTER 2024-11-28 09:58 | Outpatient (CLI) | payer OTHER, SELFPAY ==
--- NOTE | 2024-11-28 10:15 | CRLHL7_ITS ---
For Patients: As a result of the Century Cures Act, medical imaging exams and procedure reports are released immediately into your electronic medical record. You may view this report before your referring provider. If you have questions, please contact your health care provider. INDICATION: BILATERAL SCREENING MAMMOGRAM, ASYMPTOMATIC 54 Y/O FEMALE COMPARISON: 11/23/2023, 11/24/2022, 11/25/2021 TECHNIQUE: Digital mammogram in CC and MLO projections including computer-aided detection (CAD) and tomosynthesis. BREAST COMPOSITION: There are scattered areas of fibroglandular density. FINDINGS: No suspicious findings. ASSESSMENT: BI-RADS 1 Negative RECOMMENDATION: Annual screening mammogram. A lay language report of this examination will be provided to the patient. Dictated by: Alen Welch MD @ 11/28/2024 12:31:59 (Electronically Signed)
== END 2024-11-28 09:59 | disposition home or self-care (01) ==
LOC: MAMMO 09:58
PROVIDERS: PCP Family Medicine; Visit Provider Family Medicine
DX: Z12.31 Encounter for screening mammogram for malignant neoplasm of breast (principal)
CPT/HCPCS: 77063; 77067

== ENCOUNTER 2024-12-01 14:20 | Outpatient (CLI) | payer OTHER, SELFPAY ==
--- NOTE | 2024-12-01 14:30 | CRLHL7_ITS ---
For Patients: As a result of the Century Cures Act, medical imaging exams and procedure reports are released immediately into your electronic medical record. You may view this report before your referring provider. If you have questions, please contact your health care provider. CLINICAL INDICATION: Mass associated with the right gluteus kevin muscle, worrisome for liposarcoma at prior CT. COMPARISON IMAGING STUDIES: CT from 11/21/2024. TECHNICAL: Non contrast and contrast-enhanced MRI of the right pelvis/upper thigh. Axial, sagittal and coronal T1 and STIR images. Axial, sagittal and coronal T1 post denis fat-sat images. 1.5 Maia MR scanner. 19.0 mL intravenous Dotarem administered for the postcontrast portion of the study. FINDINGS: There is an intramuscular mass associated the right-sided gluteus kevin muscle which measures 11.2 x 6.1 x 4.1 centimeters in size. Mass demonstrates internal fat though also non-fatty enhancing elements (e.g. Axial T1 post denis fat-sat image number 9 of series 10). Mass is therefore suggestive of a liposarcoma. No definite extra muscular extension. No other soft tissue mass within the field of view. No enlarged right pelvic sidewall or right inguinal region lymph nodes. No focal marrow lesion within the field of view. IMPRESSION: 1. 11.2 cm long dimension intramuscular mass associated with the right-sided gluteus kevin muscle. Mass demonstrates internal fat though also non fatty enhancing elements and is therefore suggestive of a liposarcoma. No extra muscular extension. 2. No right pelvic sidewall and right inguinal region lymphadenopathy. 3. No marrow lesion within the field of view. Dictated by Kam Reyes MD @ 12/02/2024 11:08:52 AM (Electronically Signed)
== END 2024-12-01 14:21 | disposition home or self-care (01) ==
LOC: MRI 14:21
PROVIDERS: PCP Family Medicine; Visit Provider Family Medicine
DX: R22.2 Localized swelling, mass and lump, trunk (principal)
CPT/HCPCS: 72197; A9575